=== PATIENT | male | born 1960 | race Caucasian/White ===

== ENCOUNTER 2018-11-09 11:28 | Inpatient (IN) ==
[2018-11-09 13:18] LABS: BASO# 0.01 X1000 (0.0-0.2); BASO% 0.1 % (0.0-0.8); EOS# 0.07 X1000 (0.0-0.7); EOS% 0.4 % (0.0-10.0); HEMATOCRIT 23.4 % (42.0-52.0); HEMOGLOBIN 7.8 g/dL (14.0-18.0); IMM GRAN# 0.05 X1000 (0.0-0.04); IMM GRAN% 0.3 % (0.0-0.5); LYMPH# 2.78 X1000 (1.2-3.4); LYMPH% 16.4 % (20.5-51.1); MCH 32.8 PG (27-31); MCHC 33.3 g/dL (33-37); MCV 98.3 FL (81-99); MONO# 1.28 X1000 (0.11-0.59); MONO% 7.5 % (1.7-9.3); MPV 10.4 FL (7.4-10.4); NEUT# 12.77 X1000 (1.4-6.5); NEUT% 75.3 % (42.2-75.2); PLT 370 X1000 (130-400); RBC 2.38 XMIL (4.7-6.1); RDW 13.9 % (11.5-14.5); WBC 16.96 X1000 (4.8-10.8)
--- NOTE | 2018-11-09 13:29 | EKG Report ---
Test Performed on : 11/09/2018 1:01:16 PM Test Reason : cp Blood Pressure : / mmHG Vent. Rate : 070 BPM Atrial Rate : 441 BPM P-R Int : 000 ms QRS Dur : 186 ms QT Int : 568 ms P-R-T Axes : 000 -73 097 degrees QTc Int : 613 ms Wide QRS rhythm. Left axis deviation Right bundle branch block Possible Lateral infarct , age undetermined Inferior infarct , age undetermined Abnormal ECG When compared with ECG of 12-JUL-2018 03:37, Wide QRS rhythm. has replaced Electronic ventricular pacemaker Unconfirmed Result
[2018-11-09 13:32] LABS: ALBUMIN 2.5 g/dL (3.5-5.0); CALCIUM 7.7 mg/dL (8.8-10.2); CREATININE 2.5 mg/dL (0.7-1.2); POTASSIUM 3.5 mmol/L (3.5-5.1); TOTAL BILIRUBIN 1.3 mg/dL (0.20-1.00); TOTAL PROTEIN 5.5 g/dL (6.3-8.3)
--- NOTE | 2018-11-09 13:35 | Diag Imaging Result Doc PS360 ---
EXAM: CHEST-PORTABLE HISTORY: cp TECHNIQUE: Chest single view COMPARISON: 07/12/2018 FINDINGS: The lungs are well expanded. The heart is not enlarged. There is a left-sided pacemaker. The vessels are not distended. There are no infiltrates. No effusion identified. Mild scoliosis. IMPRESSION: Negative exam. Electronically signed by Nando Sifuentes 11/09/2018 1:33 PM
[2018-11-09 13:51] LABS: INR 13.11; PROTIME 103.9 Seconds (11.0-16.0); PTT 136.8 Seconds (22.3-41.8)
--- NOTE | 2018-11-09 13:52 | Extremity Venous Study ---
EXAM: Venous U/S Right Arm HISTORY: Right arm swelling, and pain TECHNIQUE: Right upper extremity venous Doppler ultrasound COMPARISON: None. FINDINGS: There is good flow and compressibility in the veins of the right upper extremity. Normal compression. No thrombus. IMPRESSION: No evidence of deep venous thrombosis in the right upper extremity. Electronically signed by Nando Sifuentes 11/09/2018 1:49 PM
[2018-11-09 14:16] LABS: EOS 2 % (1-10); LYMPHS 14 % (21-51); MONO 2 % (1-9); NRBC 1 % (0-0); SEGS 82 % (42-75)
[2018-11-09 14:17] LABS: ANISOCYTOSIS 2+; HYPOCHROM 2+; POIKILOCYTOSIS 1+; POLYCHROM 1+
[2018-11-09 14:18] LABS: LARGE PLATELETS 1+; OVALOCYTES 1+; TOXIC GRANULATION 1+
[2018-11-09] MEDS ORDERED: VITAMIN K PO ONE (16:04)
[2018-11-09] MEDS ORDERED: NS 1,000 ML IV ONE (16:05)
--- NOTE | 2018-11-09 17:23 | Diag Imaging Result Doc PS360 ---
CT HEAD W/O CONTRAST - 11/09/2018 INDICATION: confusion COMPARISON: 07/12/2018 FINDINGS: There is an area of encephalomalacia at the left frontal lobe. No intracranial mass or hemorrhage. There is mild atrophy and periventricular white matter chronic microvascular disease similar to prior. There is an old lacunae in the lamar which is better seen on today's exam. The skull is intact. The sinuses, mastoids, and middle ears are clear. IMPRESSION: Chronic changes. No acute process. This exam was performed using automated exposure control, adjustment of mA or kV according to patient size, and/or use of iterative reconstruction technique Electronically signed by Tru Vides 11/09/2018 5:21 PM
--- NOTE | 2018-11-09 17:48 | PROVIDER DOCUMENTATION ---
This chart was entered by Constance Shea Scribe, acting as scribe for Miki Man CRNP. HPI-Musculoskeletal Pain/Inj - GENERAL Chief Complaint: Edema Stated Complaint: EDEMA TO RIGHT ARM Time Seen by Provider: 11/09/18 12:34 Source: patient, EMS - HX OF PRESENT ILLNESS-MUSKULOSKELTAL Nature of Presenting Problem: 58 yom presents to ed with cc of right arm swelling and turning blue x 2 days ago. Denies any injuries. Reports left upper arm has knot in it. Denies hx of blood clots. Reports is on warfarin. Hx of [place] and pacemaker. Denies cp and sob. Review of Systems - Adult - REVIEW OF SYSTEMS - ADULT Constitutional: denies: chills, fever, fatique Eyes: reports: no symptoms reported Ears, Nose, Mouth & Throat: denies: ear pain, sinus problem, throat pain Cardiovascular: denies: chest pain, irregular heart rate, orthopnea, syncope Respiratory: reports: no symptoms reported Gastrointestinal: denies: abdominal pain, nausea, vomiting Genitourinary: reports: no symptoms reported Musculoskeletal: reports: see HPI. denies: joint pain, joint swelling, neck pain Integumentary: reports: no symptoms reported Neurological: reports: no symptoms reported Psychiatric: reports: no symptoms reported Endocrine: reports: no symptoms reported Hematologic/Lymphatic: reports: no symptoms reported Allergic/Immunologic: reports: no symptoms reported All Other Systems: Reviewed and Negative Past History - Adult - PAST MEDICAL HISTORY-ADULT Review of Records: reports: Nursing Assessment Review, Medications Reviewed Major Childhood Illnesses: reports: denies history Cardiovascular: reports: cardiac disease, A-Fib, HTN, pacemaker Respiratory: reports: denies history Gastrointestinal: reports: denies history Obstetrical/Gynecological: reports: denies history Genitourinary: reports: denies history Musculoskeletal: reports: 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) Neurological: reports: denies history Psychiatric: reports: depression Endocrine/Immune: reports: Diabetes Other Conditions: reports: denies history - PRIOR SURGERIES/PROCEDURES Surgical/Procedure History: reports: pacemaker (AICD), other (spine surgery) - IMMUNIZATION STATUS Childhood Immunizations: See Nurse Assessment Flu Vaccine: See Nurse Assessment - FAMILY HISTORY Family History: reviewed, not pertinent Physical Exam-Injury Related - Physical Exam-Injury Related Initial Vital Signs Reviewed: Yes General Appearance: appears well, alert, no apparent distress Immobilization?: negative: backboard, C-collar Eyes: PERRL/EOMI, pink conjunctivae Neck: non-tender, full range of motion, supple, normal inspection Respiratory: chest non-tender, lungs clear, normal breath sounds, no pleuratic chest pain, no respiratory distress, no accessory muscle use Cardiovascular: regular rate, rhythm Peripheral Pulses: radial (R): 2+, radial (L): 2+ Back Exam: normal inspection Extremity: non-tender, normal gait, no pedal edema, slow capillary refill, swelling (Right hand and arm swelling with discoloration from shoulder to hand) , other (2+pitting edema). negative: tenderness Psych/Mental Status: normal mood/affect, normal thought content, normal thought process, oriented x 3 - Glascow Coma Score Best Eye Response ([place]): (4) open spontaneously Best Verbal Response ([place]): (5) oriented Best Motor Response (Amandeep): (6) obeys commands Progress - PLAN OF CARE/RESULTS Progress/Plan/Lab Results: Vital Signs - 8 hr 11/09/18 11:28 11/09/18 13:10 Temperature 97.8 F Pulse Rate 69 72 Respiratory Rate 20 16 Blood Pressure 99/65 104/65 O2 Sat by Pulse Oximetry 93 L 100 Laboratory Results - last 24 hr 11/09/18 11/09/18 11/09/18 13:00 13:00 13:00 WBC 16.96 H RBC 2.38 L Hgb 7.8 L Hct 23.4 L MCV 98.3 MCH 32.8 H MCHC 33.3 RDW Std Deviation 13.9 Plt Count 370 MPV 10.4 Immature Gran % (Auto) 0.3 Neut % (Auto) 75.3 H Lymph % (Auto) 16.4 L [place] % (Auto) 7.5 Eos % (Auto) 0.4 Baso % (Auto) 0.1 Immature Gran # (Auto) 0.05 H Neut # (Auto) 12.77 H Lymph # (Auto) 2.78 [place] # (Auto) 1.28 H Eos # (Auto) 0.07 Baso # (Auto) 0.01 Segmented Neutrophils 82 H Lymphocytes 14 L Monocytes 2 Eosinophils 2 Nucleated RBCs 1 H Hypochromia 2+ Toxic Granulation 1+ Large Platelets 1+ Polychromasia 1+ Poikilocytosis 1+ Anisocytosis 2+ Macrocytosis 2+ Ovalocytes 1+ PT 103.9 H INR 13.11 H* PTT (Actin FS) 136.8 H Sodium 138 Potassium 3.5 Chloride 97 L Carbon Dioxide 26 Anion Gap 16 BUN 57 H Creatinine 2.5 H Estimated GFR/1.73 m2 27 BUN/Creatinine Ratio 23 Glucose 90 Calculated Osmolality 291 Calcium 7.7 L Total Bilirubin 1.30 H AST 70 H ALT 41 Alkaline Phosphatase 108 Total Protein 5.5 L Albumin 2.5 L Globulin 3.0 Albumin/Globulin Ratio 1.0 Orders Category Date Time Status CHEST-PORTABLE [RAD] Stat Exams 11/09/18 12:40 Completed CBC WITH DIFF [HEME] Stat Lab 11/09/18 13:00 Completed COMPREHENSIVE METABOLIC PANEL [CHEM] Stat Lab 11/09/18 13:00 Completed PROTIME WITH INR [COAG] Stat Lab 11/09/18 13:00 Completed PTT [COAG] Stat Lab 11/09/18 13:00 Completed Phytonadione [Vitamin K] Med 11/09/18 16:04 Discontinued 5 mg PO NOW ONE EKG [EKG] Stat Ther 11/09/18 12:40 Draft Venous U/S Right Arm Stat Ther 11/09/18 12:40 Completed 1530 Hospitalist paiged Result Diagrams: 11/09/18 13:00 11/09/18 13:00 - EKG 1 Time of EKG reading by physician:: 13:01 EKG Read and Signed by:: Violeta Quiroz EKG Interpretation (*Must complete 3 of following elements*): Abnormal (poss lateral infarct age undetermined, inferior infarct age undetermined.) Rate: 70 Rhythm: wide QRS [place]: left QRS: RBB - XRAY 1 XRAY: Bilateral XRAY Study: Chest Impression: Normal (IMPRESSION: Negative exam. Electronically signed by Nando Sifuentes 11/09/2018 1:33 PM) - CONSULTS/PCP/HOSPITALIST Notification #1 *Consult/PCP/Hospitalist*: Dr. Dyson Time Discussed: 16:07 (Give pt 5 Vit K PO and admit) Departure - Departure Date of Disposition Decision: 11/09/18 Time of Disposition Decision: 15:30 DIAGNOSIS: Elevated INR Disposition: ADMITTED INPATIENT 09 Certified Medical Emergency: Emergent Condition: Stable Referrals and Follow-Ups: None,PCP [Primary Care Provider] - - Critical Care Note This patient required my direct & personal management of CC.: Yes Total Time (mins): 30 Critical Care Statement: This patient required my direct personal management to treat or rule out processes, the absence of which, could potentiallly result in sudden, clinically significant life or limb threatening deterioration. Attestation - Physician/ RUDY Attestation Patient care was provided by Advanced Practice Provider:: Yes Advanced Practice Provider:: Miki Man Advanced Practice Provider documentation review:: The Mid-level provider documentation, treatment plan and medical decision making was reviewed by the physician who agrees with all treatment and medical decision making by the MLP. The physician spent face to face time with patient:: No Advanced Practice Provider documentation review:: Supervising physician onsite and consulted in the evaluation and care of this patient. The physician did not have a face to face encounter with the patient. This chart was documented by the indicated scribe, (Constance Shea Scribe) and accurately reflects the services I performed and decisions made by me, Miki Man CRNP, as attested by the provider's signature.
[2018-11-09 19:10] LABS: HEMATOCRIT 22.8 % (42.0-52.0); HEMOGLOBIN 7.7 g/dL (14.0-18.0); MCHC 33.8 g/dL (33-37); MCV 97.9 FL (81-99); MPV 9.9 FL (7.4-10.4); RBC 2.33 XMIL (4.7-6.1); RDW 13.8 % (11.5-14.5); WBC 17.66 X1000 (4.8-10.8)
[2018-11-09] MEDS: DUONEB (A & A) INH SCH ×2 (19:24→22:58)
[2018-11-09 19:28] LABS: PROTIME 112.4 Seconds (11.0-16.0)
[2018-11-09 19:29] LABS: INR 14.48
[2018-11-09] MEDS ORDERED: VITAMIN K SUBQ ONE (19:32)
[2018-11-09] MEDS: PROTONIX IV SCH (20:23)
--- NOTE | 2018-11-09 20:47 | Diag Imaging Result Doc PS360 ---
CT ABDOMEN/PELVIS W/O CONTRAST - 11/09/2018 INDICATION: DEMETRIA, elevated INR COMPARISON: None FINDINGS: The lung bases are clear and the heart size is normal. There is severe scoliosis and spinal fusion rods. There is extremely severe vascular disease of the abdominal aorta and all of its branches. There are pacemaker leads in the heart. There are vascular calcifications in the kidneys. No definite renal stones. There is a gallstone the gallbladder. No gallbladder inflammation. There is rectal stool impaction with an 8 cm rectal stool ball. Urinary bladder and prostate are normal. IMPRESSION: Numerous nonspecific findings. This exam was performed using automated exposure control, adjustment of mA or kV according to patient size, and/or use of iterative reconstruction technique Electronically signed by Tru Vides 11/09/2018 8:44 PM
[2018-11-09 21:03] LABS: URINE SOURCE VOIDED
[2018-11-09 21:13] LABS: BILIRUBIN URINE NEGATIVE (NEGATIVE); BLOOD URINE NEGATIVE (NEGATIVE); CLARITY CLEAR (CLEAR); COLOR YELLOW; GLUCOSE URINE NEGATIVE (NEGATIVE); KETONE URINE NEGATIVE (NEGATIVE); LEUKOCYTES URINE TRACE (NEGATIVE); NITRITE URINE NEGATIVE (NEGATIVE); PH URINE 6.5; PROTEIN URINE TRACE mg/dL (NEGATIVE); UROBILINOGEN URINE NORMAL
[2018-11-09 21:29] LABS: URINE BACTERIA NEGATIVE /HFP; URINE EPITHELIAL CELLS <10 /HPF (<10); URINE RBC <10 /HPF (<10); URINE WBC <10 /HPF (<10)
[2018-11-09] MEDS: HUMALOG (PARKWAY) SUBQ SCH (22:31)
--- NOTE | 2018-11-10 01:44 | HISTORY AND PHYSICAL ---
ADDENDUM: The patient has a known history of alcoholism. He had a recent subarachnoid hemorrhage that has resolved back in July. He is currently on Coumadin. He also notes that he has frequent episodes of falling. He presented to the hospital with marked swelling and bruising of his right upper extremity. He does have good sensation distally. His INR was noted to be 13.1. Hemoglobin and hematocrit is actually lower at 7.8 and 23 than his baseline, although no active bleeding is noted. We will admit patient to the hospital. IV Lasix. We will continue to follow. We will give him vitamin K. We will not start fresh frozen plasma yet, as he has no active signs of bleeding. We will type, cross, transfuse 1 unit, given that he has lower hemoglobin and hematocrit than his baseline, and his INR is markedly elevated. We will recheck his labs later this evening, and adjust as needed. cc: Milton Dyson MD
[2018-11-10 01:52] LABS: INR 8.05; PROTIME 70.8 Seconds (11.0-16.0)
[2018-11-10] MEDS ORDERED: VITAMIN K SUBQ ONE (01:56)
[2018-11-10] MEDS: DUONEB (A & A) INH SCH ×6 (03:29→23:15)
--- NOTE | 2018-11-10 03:55 | HISTORY AND PHYSICAL ---
CHIEF COMPLAINT: Right arm swelling, turning blue. HISTORY OF PRESENT ILLNESS: This is a 58-year-old gentleman with a history of atrial fibrillation, pacemaker, hypertension diabetes mellitus. He presents to the emergency room complaining of his right arm swelling and turning blue. The patient is on Coumadin. He is unable to tell me what dose he takes, how many pills he takes or when his last INR was drawn. He did tell Dr. Dyson it was greater than a year. He denies injury. He denied any injury at first evaluation, then when I went back in the room he did say that he "I fall a lot and I hurt it then." He was noted to have a hematoma to his right deltoid area, looks like old bruising to his right deltoid. It is now, the colors are yellow and green. He is noted to have bruising from just above his elbow down to his fingers. He does have pitting edema. Bilateral radial pulses and antecubital pulses are palpable. He does have good movement. Sensation unable tell capillary refill due to the discoloration of the skin. He was found to have an INR of 13.1. In review of the patient's past records, in July 2018 he had a tiny acute subarachnoid hemorrhage at the superior left cerebral hemisphere that was 5 mm or less. PAST MEDICAL HISTORY: 1. Atrial fibrillation status post pacemaker. 2. Hypertension. 3. 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 4. Diabetes. PAST SURGICAL HISTORY: Pacemaker placement, possible AICD and spine surgery. SOCIAL HISTORY: He denies any illicit drug use. He does smoke a pack a day and he does drink whiskey, with his last drink being prior to coming to the ER. REVIEW OF SYSTEMS: Discussed with patient, with pertinent positives stated in the HPI. He denied any syncope or dizziness, any chest pain, palpitations, any fever, chills, any night sweats, cough, nausea, vomiting, diarrhea, constipation, black or bloody vomitus or stools, any hematuria, dysuria, frequency or urgency. PHYSICAL EXAMINATION: GENERAL: This is a 58-year-old gentleman who is sitting up in the stretcher in the ER in no distress. VITAL SIGNS: Blood pressure is 104/65, with a heart rate of 72, respirations are 16, temperature is 97.6, with O2 sats 97-100% on room air. EYES: Pupils are equal, round, react to light. EOMs are intact. Sclerae are anicteric. HEENT: Head is normocephalic, atraumatic. Mucous membranes are moist. NECK: Supple, with trachea midline. CARDIOVASCULAR: Regular rate and rhythm. S1 and S2 appreciated. He has no lower extremity edema. He does have right arm and hand edema with bruising noted from elbow to fingertips. His right arm and hand are edematous with pitting edema with peripheral pulses palpable x 4 extremities. PULMONARY: Breath sounds are clear with no increased work of breathing noted. Chest rises and falls symmetrically with respiration. Chest wall is nontender to palpation. GASTROINTESTINAL: Abdomen is soft, nontender, nondistended, with bowel sounds in all 4 quadrants. NEUROLOGIC: He is alert. He is oriented. SKIN: Warm and dry. He does have bruises scattered throughout his extremities in different stages. LABORATORY: WBC is 16.9, with hemoglobin 7.8, hematocrit 23.4 and platelets of 370,000. INR is 13.11. Sodium 138, potassium 3.5, BUN 57, creatinine 2.5, with a glucose of 90. Extremity venous study right arm revealed no evidence of deep vein thrombosis in the right upper extremity. Chest x-ray revealed a negative exam. There is a left-sided pacemaker. Heart is not enlarged. Lungs are well expanded. Vessels are not distended. There are no infiltrates. ASSESSMENT AND PLAN: 1. Hyper elevated INR. 2. Anemia secondary to blood loss. 3. Leukocytosis. 4. Acute kidney injury. 5. Elevated total bilirubin. PLAN: We will obtain a CT of the head without contrast as the patient did have a bleed in 2018. We will obtain a CT of the abdomen and pelvis without contrast to see if any acute kidney injury. We will obtain a urinalysis. We will attempt to identify his home medications. We will repeat a CBC and INR and a CMP in the morning. We will give gentle hydration. He was given a dose of vitamin K in the emergency room as a one time dose. We will reassess when labs are obtained in the morning. The patient does have a history of alcohol use, stating that he drinks daily. His last drink was prior to coming into the ER. We will get a blood alcohol from the labs that were drawn in the ER. Further treatments pending hospital course. Dictated by SHREYA Black for Milton Dyson MD This chart was documented by, SHREYA Black and accurately reflects the services performed, treatment plan and medical decisions as attested by the providers signature Milton Dyson MD. cc: SHREYA Black MD [facility]
[2018-11-10] MEDS: PROTONIX IV SCH ×2 (06:03→18:36)
[2018-11-10 06:06] LABS: HEMATOCRIT 28.4 % (42.0-52.0); HEMOGLOBIN 9.6 g/dL (14.0-18.0); MCH 32.3 PG (27-31); MCHC 33.8 g/dL (33-37); MCV 95.6 FL (81-99); MPV 10.3 FL (7.4-10.4); RBC 2.97 XMIL (4.7-6.1); WBC 16.87 X1000 (4.8-10.8)
[2018-11-10 06:28] LABS: PROTIME 65.6 Seconds (11.0-16.0)
[2018-11-10 06:29] LABS: INR 7.31
[2018-11-10 06:47] LABS: CALCIUM 7.4 mg/dL (8.8-10.2); CREATININE 1.9 mg/dL (0.7-1.2); POTASSIUM 3.1 mmol/L (3.5-5.1)
[2018-11-10] MEDS: HUMALOG (PARKWAY) SUBQ SCH ×4 (07:45→23:23)
[2018-11-10] MEDS: NS 1,000 ML IV SCH (11:29)
[2018-11-10] MEDS ORDERED: KLOR-CON PO ONE (18:15)
[2018-11-10] MEDS ORDERED: NORCO-10 PO PRN (20:11)
[2018-11-10] MEDS: NORCO-10 PO PRN (21:01)
--- NOTE | 2018-11-10 22:56 | PROGRESS NOTE ---
DATE: 11/10/2018 SUBJECTIVE: The patient notes that his right arm may be feeling a little bit better. Certainly, not any worse. Denies any fevers or chills. Denies any bleeding or bruising elsewhere. States the bruising on his right upper extremity is better. Denies any current alcohol use. PHYSICAL EXAMINATION: Vital Signs: Temperature 98.4, pulse 71, respiratory rate 20, blood pressure 133/67. General: Patient is awake, alert, currently in no distress. Very pleasant to talk with. HEENT: Normocephalic. Neck: Supple. Cardiovascular: Regular rate. Chest: Clear, nonlabored. Abdomen: Soft, nondistended. Extremities: Moves all extremities. He does have marked bruising and edema of his right upper extremity. ASSESSMENT: 1. Atrial fibrillation, with pacemaker. 2. Iatrogenically-elevated INR. Currently, he has continued to improve. 3. Anemia of chronic disease. 4. Hemoglobin and hematocrit is better after a unit of blood. 5. Acute kidney injury. His most recent creatinine on file is 0.8 in July 2018. Currently, it is 2.5. PLAN: We will continue patient in the hospital, continue IV fluids, continue to treat symptomatically. Further orders as needed. We will continue to hold Coumadin. cc: Milton Dyson MD
[2018-11-11] MEDS: NS 1,000 ML IV SCH ×2 (01:45→18:39)
[2018-11-11] MEDS: DUONEB (A & A) INH SCH ×5 (03:43→18:46)
[2018-11-11] MEDS: NORCO-10 PO PRN ×3 (04:37→22:28)
[2018-11-11] MEDS: PROTONIX IV SCH ×2 (06:33→18:39)
[2018-11-11] MEDS: SODIUM CHLORIDE 0.9% INJ SCH (06:33)
[2018-11-11] MEDS: HUMALOG (PARKWAY) SUBQ SCH ×4 (06:33→22:29)
[2018-11-11 10:17] LABS: HEMATOCRIT 26.9 % (42.0-52.0); MCH 32.5 PG (27-31); MCHC 33.5 g/dL (33-37); MCV 97.1 FL (81-99); MPV 9.5 FL (7.4-10.4); RBC 2.77 XMIL (4.7-6.1); RDW 16.2 % (11.5-14.5); WBC 16.29 X1000 (4.8-10.8)
[2018-11-11 10:24] LABS: AGAP 8; ALBUMIN 2.7 g/dL (3.5-5.0); ALKALINE PHOSPHATASE 110 U/L (32-122); BUN 36 mg/dL (8-22); CALCIUM 7.9 mg/dL (8.8-10.2); CHLORIDE 106 mmol/L (98-107); COSMO 294; CREATININE 1.2 mg/dL (0.7-1.2); ESTIMATED GFR > 60; GLUCOSE 141 mg/dL (70-104); GOT 36 U/L (10-34); GPT 29 U/L (10-44); MAGNESIUM 1.2 mg/dL (1.5-2.7); POTASSIUM 3.8 mmol/L (3.5-5.1); SODIUM 142 mmol/L (136-145); TCO2 28 mmol/L (25-35); TOTAL PROTEIN 5.4 g/dL (6.3-8.3)
[2018-11-11 10:35] LABS: INR 1.53; PROTIME 19.1 Seconds (11.0-16.0)
[2018-11-11] MEDS ORDERED: MAGNESIUM SULFATE 2 GM/S.W.I. 2 GM/50 ML IVPB IV ONE (14:00)
[2018-11-11] MEDS ORDERED: COUMADIN PO SCH (21:00)
--- NOTE | 2018-11-12 00:46 | PROGRESS NOTE ---
DATE: 11/11/2018 SUBJECTIVE: Patient notes that he is feeling better. He is right hand and arm have less swelling. Denies any chest pain or palpitations. PHYSICAL EXAMINATION: Vital Signs: Temperature 98.5 degrees, pulse 70, respiratory 16, BP 165/68. General: Patient is awake, alert, currently in no distress. HEENT: Normocephalic. Neck: Supple. CARDIOVASCULAR: Regular rate. Chest: Clear. Abdomen: Soft. Extremities: Moves all extremities. ASSESSMENT: 1. Marked hypercoagulability. INR was 13, currently is improved at 1.6. We will restart Coumadin although we will not restart Lovenox as he still has marked bruising and swelling of his right upper extremity. 2. Atrial fibrillation per history. This is the reason that he is on Coumadin. Currently, he is in sinus rhythm. 3. Hypertension. 4. Rnqrrpw-Zlhfv-Curfe disease of hands and feet. 5. Diabetes. 6. Anemia, stable. 7. Leukocytosis, stable. PLAN: We will continue patient in the hospital. His acute renal failure has much improved. Creatinine is down to 1.2. Magnesium is low at 1.2. We will replace this. We will ask [employer] to begin looking for rehab. We will consider transitioning him to Xarelto as this will be easier to manage and we will follow. If Xarelto is affordable, we will use a lower dose of Xarelto at 10 mg for the next several weeks to allow his hand to heal and then consider increasing back to the 20 mg if needed. cc: Milton Dyson MD
[2018-11-12] MEDS: DUONEB (A & A) INH SCH ×7 (04:11→22:47)
[2018-11-12] MEDS: SODIUM CHLORIDE 0.9% INJ SCH (05:33)
[2018-11-12] MEDS: PROTONIX IV SCH ×2 (05:33→19:11)
[2018-11-12] MEDS: HUMALOG (PARKWAY) SUBQ SCH ×4 (06:22→21:39)
[2018-11-12] MEDS: NORCO-10 PO PRN (06:22)
[2018-11-12 07:12] LABS: AGAP 13; ALBUMIN 2.6 g/dL (3.5-5.0); ALKALINE PHOSPHATASE 110 U/L (32-122); BUN 26 mg/dL (8-22); CALCIUM 8.3 mg/dL (8.8-10.2); CHLORIDE 104 mmol/L (98-107); COSMO 283; CREATININE 0.9 mg/dL (0.7-1.2); ESTIMATED GFR > 60; GLUCOSE 112 mg/dL (70-104); GOT 31 U/L (10-34); GPT 22 U/L (10-44); MAGNESIUM 1.5 mg/dL (1.5-2.7); POTASSIUM 3.8 mmol/L (3.5-5.1); SODIUM 139 mmol/L (136-145); TCO2 22 mmol/L (25-35); TOTAL PROTEIN 5.5 g/dL (6.3-8.3)
[2018-11-12 09:05] LABS: HEMATOCRIT 26.4 % (42.0-52.0); MCH 33.7 PG (27-31); MCHC 34.1 g/dL (33-37); MCV 98.9 FL (81-99); RBC 2.67 XMIL (4.7-6.1); WBC 18.11 X1000 (4.8-10.8)
[2018-11-12 09:18] LABS: INR 1.17; PROTIME 15.5 Seconds (11.0-16.0)
[2018-11-12] MEDS: LOTENSIN PO SCH (09:50)
--- NOTE | 2018-11-13 00:45 | PROGRESS NOTE ---
DATE: 11/12/2018 SUBJECTIVE: Patient notes that he is feeling better. His right arm pain is better, but he is having pain, numbness and tingling in his bilateral lower extremities and this is chronic. PHYSICAL EXAMINATION: Vital Signs: Temperature 98.1 degrees, pulse 71, respiratory 20, BP 157/93. General: Patient is in no current respiratory distress. HEENT: Normocephalic. Neck: Supple. Cardiovascular: Regular rate. Chest: Clear. Abdomen: Soft. Extremities: Moves all extremities. Neurologic: No changes. Skin: Warm and dry. ASSESSMENT: 1. Swelling in his right upper extremity has improved. 2. Hypercoagulability. INR currently is down to 1.3. 3. Anemia secondary to chronic blood loss, has been stable after transfusion. 4. Leukocytosis. 5. Acute on chronic kidney injury. Creatinine is improved. 6. Atrial fibrillation. PLAN: At this point, we will restart patient on Xarelto. However, we will start back at a low dose of 10 mg due to his recent bleeding as well as his recent marked bruising of his right upper extremity. We will continue this for several more weeks. After the bruising/bleeding has been stable, he can transition back to 20 mg Xarelto if needed. Hopefully, patient can transition to rehab over the next day or 2. cc: Milton Dyson MD
[2018-11-13] MEDS: DUONEB (A & A) INH SCH ×6 (03:08→22:42)
[2018-11-13] MEDS: TYLENOL PO PRN (04:00)
[2018-11-13] MEDS: XARELTO PO SCH (05:12)
[2018-11-13] MEDS: PROTONIX IV SCH (06:18)
[2018-11-13] MEDS: HUMALOG (PARKWAY) SUBQ SCH ×4 (06:19→21:57)
[2018-11-13] MEDS ORDERED: LOTENSIN PO SCH (09:00)
[2018-11-13] MEDS: CELEXA PO SCH (09:48)
[2018-11-13] MEDS: GLUCOPHAGE XR PO SCH (09:48)
[2018-11-13] MEDS: LOTENSIN PO SCH (09:48)
[2018-11-13] MEDS: PROTONIX PO SCH (21:04)
[2018-11-14] MEDS: NORCO-10 PO PRN ×2 (00:18→20:42)
[2018-11-14] MEDS: DUONEB (A & A) INH SCH ×6 (02:57→22:59)
--- NOTE | 2018-11-14 03:32 | PROGRESS NOTE ---
DATE: 11/13/2018 SUBJECTIVE: Patient notes that his right arm is feeling much better. He is having less pain, less swelling, less bruising. Denies any bruising elsewhere. PHYSICAL EXAMINATION: Vital Signs: Temperature 97.7 degrees, pulse 74, respiratory 20, BP 164/85. General: Patient is awake, alert, currently in no distress. Very pleasant to talk with. HEENT: Normocephalic. Neck: Supple. Cardiovascular: Regular rate. Chest: Clear. Abdomen: Soft, nondistended. Extremities: Moves all extremities. Skin: Right upper extremity bruising is much improved. ASSESSMENT: 1. Hypercoagulable secondary to elevated INR, resolved. 2. Anemia secondary to blood loss, resolved. Hemoglobin and hematocrit have remained stable. 3. Leukocytosis. 4. Acute kidney failure, resolved. 5. Hypomagnesemia, resolved. PLAN: We will continue patient in the hospital until which time he can transition to rehab. We have changed him to Xarelto. We will continue low-dose Xarelto until the bruising has improved and then may consider transition to higher dose. cc: Milton Dyson MD
[2018-11-14] MEDS: XARELTO PO SCH (05:04)
[2018-11-14] MEDS: HUMALOG (PARKWAY) SUBQ SCH ×4 (06:01→21:50)
[2018-11-14] MEDS: PROTONIX PO SCH ×2 (06:08→20:40)
[2018-11-14] MEDS: LOTENSIN PO SCH (10:11)
[2018-11-14] MEDS: CELEXA PO SCH (10:11)
[2018-11-14] MEDS: GLUCOPHAGE XR PO SCH (10:11)
--- NOTE | 2018-11-15 00:41 | PROGRESS NOTE ---
DATE: 11/14/2018 SUBJECTIVE: Patient with no new complaints. States that he is feeling better. Right arm is feeling better. He is able to start moving it better. Denies any chest pain, palpitations. PHYSICAL EXAMINATION: Vital Signs: Temperature 97.4 degrees, pulse 71, respiratory 20, BP 181/81. General: Patient is currently in no distress. HEENT: Normocephalic. Neck: Supple. Cardiovascular: Regular rate. Chest: Clear and nonlabored. Abdomen: Soft. Extremities: Moves all extremities. Skin: Right upper extremity has much less edema, much less bruising, full range of motion. ASSESSMENT: 1. Hypercoagulable, improved. Currently is on Xarelto instead of Eliquis. 2. Anemia, stable. 3. Leukocytosis, stable. 4. Atrial fibrillation with rapid ventricular response, stable. 5. Diabetes. 6. Hypertension. PLAN: Continue patient in the hospital. Continue Xarelto. Hopefully can transition to rehab first of the week, currently waiting on insurance approval. Overall, physically he is better although still generally weak. cc: Milton Dyson MD
[2018-11-15] MEDS: DUONEB (A & A) INH SCH ×6 (02:43→23:09)
[2018-11-15] MEDS: XARELTO PO SCH (05:13)
[2018-11-15] MEDS: HUMALOG (PARKWAY) SUBQ SCH ×4 (06:48→20:44)
[2018-11-15] MEDS: PROTONIX PO SCH ×2 (06:48→20:44)
[2018-11-15] MEDS: CELEXA PO SCH (08:58)
[2018-11-15] MEDS: LOTENSIN PO SCH (08:58)
[2018-11-15] MEDS: GLUCOPHAGE XR PO SCH (08:58)
[2018-11-15] MEDS: NORVASC PO SCH (11:27)
--- NOTE | 2018-11-15 19:29 | PROGRESS NOTE ---
DATE: 11/15/2018 SUBJECTIVE: Patient himself has no new complaints. States he is feeling okay. PHYSICAL EXAMINATION: Vital Signs: Vital signs reviewed. Temp 97.7, pulse 70, respiratory 20, BP 182/94. General: Patient is awake. He is in no distress. HEENT: Normocephalic. Neck: Supple. Cardiovascular: Regular rate. Chest: Clear. Abdomen: Soft. Extremities: Moves all extremities. Skin: Warm, dry. No rashes. His right upper extremity has had marked improvement in bruising over the last few days. The patient is still generally weak. ASSESSMENT: 1. Generalized weakness with adult failure to thrive. Patient is still generally weak and too weak to transition home. 2. Atrial fibrillation. 3. Hypercoagulable state. 4. Anemia secondary to blood loss, stable. PLAN: We will continue 10 mg Xarelto which is a lower dose, but given his recent bleeding as well as his recent marked bruising in his right upper extremity due to an elevated INR we will continue the low dose for now and over the next few weeks he can transition back to the 20 mg if necessary. Hopefully, the patient can transition to rehab over the next few days. cc: Milton Dyson MD
[2018-11-16] MEDS: DUONEB (A & A) INH SCH ×6 (03:24→23:20)
[2018-11-16] MEDS: XARELTO PO SCH (05:03)
[2018-11-16] MEDS: HUMALOG (PARKWAY) SUBQ SCH ×4 (06:27→21:24)
[2018-11-16] MEDS: PROTONIX PO SCH ×2 (06:29→21:24)
[2018-11-16] MEDS: CELEXA PO SCH (09:54)
[2018-11-16] MEDS: GLUCOPHAGE XR PO SCH (09:54)
[2018-11-16] MEDS: NORVASC PO SCH (09:54)
[2018-11-16] MEDS: LOTENSIN PO SCH (09:54)
--- NOTE | 2018-11-16 12:23 | PROGRESS NOTE ---
DATE: 11/16/2018 SUBJECTIVE: The patient has no major complaints. OBJECTIVE: Vital signs: Blood pressure is 184/86, heart rate 71, respiratory rate 16, temperature 97.7 degrees, 98% on room air. Cardiovascular: Regular rate and rhythm. Pulmonary: Bilateral breath sounds, clear to auscultation. GI: Was soft, nontender, and nondistended. Bowel sounds are positive. He still has significant bruising, ecchymoses of his right hand. LABORATORY DATA: Sugar 209. I do not think we have any new data today. PROBLEM LIST: 1. Weakness, failure to thrive with initial coagulopathy, anemia. The patient came in from home. He seems to be doing okay, but failure to thrive, weakness. Will continue with PT. He is still very weak. Working on trying to do some strength training. 2. Coagulopathy, but he is on a non-vitamin K antagonist which was stopped because his INR is like 11, when he came in and then his Xarelto was decreased to 10 mg. He does have a history of atrial fibrillation. 3. Atrial fibrillation appears to be rate controlled and anticoagulated. I will go ahead and reinitiate his Coreg because he is a bit hypertensive. 4. Hypertension. We will continue his regular medications, and we have adjusted Coreg. Hopefully, we can see some improvement. 5. Anemia. Hemoglobin and hematocrit has been stable. I will make sure there is not a significant drop. DISPOSITION: Pending rehab when bed available. cc: Zuhair Ferrell MD
[2018-11-16] MEDS: TYLENOL PO PRN (13:03)
[2018-11-16] MEDS: COREG PO SCH ×2 (13:03→21:23)
[2018-11-16] MEDS: THERA M PLUS PO SCH (13:03)
--- NOTE | 2018-11-16 15:12 | DISCHARGE SUMMARY ---
DATE OF ADMISSION: 11/09/2018 DATE OF DISCHARGE: 11/16/2018 PRIMARY CARE PHYSICIAN: None. ADMISSION DIAGNOSES: 1. Hyper elevated international normalized ratio. 2. Anemia secondary to blood loss. 3. Leukocytosis. 4. Acute kidney injury. 5. Elevated total bilirubin. DISCHARGE DIAGNOSES: 1. Weakness, failure to thrive with initial coagulopathy and anemia. 2. Coagulopathy. 3. Atrial fibrillation, rate controlled with chronic anticoagulation. 4. Hypertension. 5. Anemia. SUMMARY OF FINDINGS: This is a 58-year-old male who presented to the emergency room with complaints of his right arm swelling and turning blue. He was noted to be on Coumadin, but was unable to tell us the dosage that he takes, but states he has been on it for greater than a year. Stated that "I fall a lot and hurt it then," was noted to have a hematoma to the right deltoid area with old bruising to the right deltoid. He had some pitting edema. He did have good movement. He was found to have an INR on admission of 13.1. He was admitted. We held his Coumadin. We did do a CT of the head without contrast because he had a bleed in July 2018. It showed an impression of chronic changes but no acute process. We did an abdomen and pelvic CT that showed nonspecific findings. His INR on 11/12/2018 was subtherapeutic at 1.17. He was started on Xarelto 10 mg p.o. daily. He has done well with that. Physical therapy has evaluated and has been treating the patient. His hemoglobin and hematocrit are stable at 9.0 and 26.4. He did receive 1 unit of packed red blood cells while he has been here in the hospital and it is now felt that he can safely be discharged to rehab today. DISCHARGE MEDICATIONS: Benazepril 20 mg p.o. daily, [place] 10 1 p.o. q.4 h. p.r.n. #25 with no refill, metformin 500 mg p.o. daily, Xarelto 10 mg p.o. daily, Lotensin 20 mg p.o. daily, Coreg 25 mg p.o. daily. DISCHARGE INSTRUCTIONS: Follow-up he will need to follow up with the primary care once he is discharged from rehab. TIME SPENT: 35 minutes. Dictated by SHREYA Rutledge for Zuhair Ferrell MD cc: SHREYA Rutledge MD
[2018-11-16 16:11] LABS: BASO# 0.04 X1000 (0.0-0.2); BASO% 0.2 % (0.0-0.8); EOS# 0.08 X1000 (0.0-0.7); EOS% 0.4 % (0.0-10.0); HEMATOCRIT 26.7 % (42.0-52.0); HEMOGLOBIN 8.8 g/dL (14.0-18.0); IMM GRAN# 0.07 X1000 (0.0-0.04); IMM GRAN% 0.3 % (0.0-0.5); LYMPH# 0.45 X1000 (1.2-3.4); LYMPH% 2.1 % (20.5-51.1); MCH 33.3 PG (27-31); MCV 101.1 FL (81-99); MONO# 0.48 X1000 (0.11-0.59); MONO% 2.3 % (1.7-9.3); NEUT# 20.14 X1000 (1.4-6.5); NEUT% 94.7 % (42.2-75.2); PLT 425 X1000 (130-400); RBC 2.64 XMIL (4.7-6.1); WBC 21.26 X1000 (4.8-10.8)
[2018-11-16 16:44] LABS: ANISOCYTOSIS 1+; BANDS 6 % (0-1); HYPOCHROM 1+; LYMPHS 1 % (21-51); MONO 5 % (1-9); NRBC 1 % (0-0); POIKILOCYTOSIS OCCASIONAL; SEGS 88 % (42-75)
[2018-11-16 16:51] LABS: AGAP 13; BUN 19 mg/dL (8-22); CHLORIDE 108 mmol/L (98-107); COSMO 286; ESTIMATED GFR > 60; GLUCOSE 111 mg/dL (70-104); POTASSIUM 3.6 mmol/L (3.5-5.1); SODIUM 142 mmol/L (136-145); TCO2 22 mmol/L (25-35)
--- NOTE | 2018-11-16 18:09 | Diag Imaging Result Doc PS360 ---
EXAM: CHEST-2 VIEWS INDICATION: leukocytosis TECHNIQUE: 2 views COMPARISON: 11/09/2018 FINDINGS: There is a mild focal opacity at the left lung base that may represent atelectasis versus a small infiltrate. The central vasculature is mildly prominent suggesting likely coronary venous congestion. No definite pleural fluid collection or pneumothorax is identified. The pacemaker is in stable position. Cardiac silhouette is unremarkable, otherwise. IMPRESSION: Minimal left basilar atelectasis versus mild infiltrate and possible mild pulmonary venous congestion as described. Electronically signed by Joseph Ch 11/16/2018 6:08 PM
[2018-11-16] MEDS: MAXIPIME 2 GM in NS 100 ML IV SCH (18:31)
[2018-11-17] MEDS: DUONEB (A & A) INH SCH ×6 (03:32→22:51)
[2018-11-17] MEDS: MAXIPIME 2 GM in NS 100 ML IV SCH ×2 (04:50→18:41)
[2018-11-17] MEDS: XARELTO PO SCH (05:16)
[2018-11-17] MEDS: HUMALOG (PARKWAY) SUBQ SCH ×4 (06:33→20:42)
[2018-11-17] MEDS: PROTONIX PO SCH ×2 (06:33→20:43)
[2018-11-17 06:34] LABS: BASO# 0.06 X1000 (0.0-0.2); BASO% 0.2 % (0.0-0.8); EOS# 0.04 X1000 (0.0-0.7); EOS% 0.1 % (0.0-10.0); HEMATOCRIT 26.9 % (42.0-52.0); HEMOGLOBIN 8.8 g/dL (14.0-18.0); IMM GRAN# 0.14 X1000 (0.0-0.04); IMM GRAN% 0.4 % (0.0-0.5); LYMPH# 1.13 X1000 (1.2-3.4); LYMPH% 3.2 % (20.5-51.1); MCH 33.3 PG (27-31); MCHC 32.7 g/dL (33-37); MCV 101.9 FL (81-99); MONO# 0.95 X1000 (0.11-0.59); MONO% 2.7 % (1.7-9.3); MPV 9.9 FL (7.4-10.4); NEUT# 33.39 X1000 (1.4-6.5); NEUT% 93.4 % (42.2-75.2); PLT 398 X1000 (130-400); RBC 2.64 XMIL (4.7-6.1); RDW 19.5 % (11.5-14.5); WBC 35.71 X1000 (4.8-10.8)
[2018-11-17 06:39] LABS: AGAP 13; BUN 22 mg/dL (8-22); CALCIUM 7.9 mg/dL (8.8-10.2); CHLORIDE 104 mmol/L (98-107); COSMO 282; CREATININE 1.1 mg/dL (0.7-1.2); ESTIMATED GFR > 60; GLUCOSE 110 mg/dL (70-104); POTASSIUM 3.7 mmol/L (3.5-5.1); SODIUM 139 mmol/L (136-145); TCO2 22 mmol/L (25-35)
[2018-11-17 07:12] LABS: BANDS 6 % (0-1); LYMPHS 4 % (21-51); SEGS 90 % (42-75)
[2018-11-17 07:14] LABS: ANISOCYTOSIS 2+; HYPOCHROM 1+; MICROCYTOSIS OCCASIONAL; POIKILOCYTOSIS 2+; POLYCHROM OCCASIONAL; TARGET CELLS OCCASIONAL
[2018-11-17 07:15] LABS: BURR CELLS OCCASIONAL; LARGE PLATELETS OCCASIONAL; OVALOCYTES OCCASIONAL
[2018-11-17] MEDS ORDERED: VANCOMYCIN IV PER PHARMACY MISC SCH (09:00)
[2018-11-17] MEDS: NORVASC PO SCH (09:55)
[2018-11-17] MEDS: LOTENSIN PO SCH (09:55)
[2018-11-17] MEDS: GLUCOPHAGE XR PO SCH (09:55)
[2018-11-17] MEDS: COREG PO SCH ×2 (09:55→20:42)
[2018-11-17] MEDS: THERA M PLUS PO SCH (09:55)
[2018-11-17] MEDS: CELEXA PO SCH (09:55)
[2018-11-17] MEDS ORDERED: VANCOMYCIN 2,000 MG in NS 500 ML IV ONE (10:00)
[2018-11-17 10:12] LABS: BILIRUBIN URINE 1+ (NEGATIVE); BLOOD URINE NEGATIVE (NEGATIVE); CLARITY CLEAR (CLEAR); COLOR AMBER; GLUCOSE URINE NEGATIVE (NEGATIVE); KETONE URINE TRACE mg/dL (NEGATIVE); LEUKOCYTES URINE TRACE (NEGATIVE); NITRITE URINE NEGATIVE (NEGATIVE); PH URINE 6.5; PROTEIN URINE 1+(30 mg/dL) mg/dL (NEGATIVE); UROBILINOGEN URINE 4 mg/dL
[2018-11-17 10:18] LABS: URINE EPITHELIAL CELLS <10 /HPF (<10); URINE SOURCE CLEAN CATCH; URINE WBC <10 /HPF (<10)
--- NOTE | 2018-11-17 18:57 | Diag Imaging Result Doc PS360 ---
EXAM: FOOT 2 VIEWS LEFT 11/17/2018 HISTORY: foot ulcer TECHNIQUE: Left foot, lateral only COMMENT: There is generalized soft tissue swelling particularly over the dorsum of the foot. There is patchy osteoporosis. IMPRESSION: Soft tissue swelling and disuse osteoporosis. Electronically signed by Jem Hogue 11/17/2018 6:54 PM
--- NOTE | 2018-11-17 20:15 | PROGRESS NOTE ---
DATE: 11/17/2018 SUBJECTIVE: Patient has no major complaints. Nurse notes he has been self- stimulating in his room at some point where we could not get films on him x-ray films. OBJECTIVE: Blood pressure is 157/82, heart rate of 81, respiratory 16, temperature 99.6 degrees, 99% on room air.Cardiovascular: Regular rate and rhythm. Pulmonary: Bilateral breath sounds. Clear to auscultation. GI: Was soft, nontender, nondistended. Bowel sounds are positive. PROBLEMS: 1. Fever which I do not have a good explanation for. We does have a rising white count I am not sure if he does not have infection in his leg. He is on vancomycin and cefepime. We will continue to monitor. 2. Coagulopathy that has resolved. He is on low-dose Xarelto. 3. Atrial fibrillation appears to be rate controlled, we are holding strong anticoagulation because he had severe coagulopathy when he came in. 4. Hypertension. That seems to be overall pretty well controlled. 5. Anemia appears to be stable. 6. Rising leukocytosis. We will evaluate for skin infection or bone infection, he has had abdominal pelvic CT. We may have to do a chest CT so we will continue to monitor closely. cc: Zuhair Ferrell MD [facility]ENTERCristina
[2018-11-17] MEDS: TYLENOL PO PRN (20:43)
[2018-11-17 21:05] LABS: OCCULT BLOOD 1 POSITIVE (NEGATIVE)
[2018-11-17] MEDS: SANTYL OINT TOP SCH (22:08)
--- NOTE | 2018-11-18 02:38 | EKG Report ---
Test Performed on : 11/18/2018 00:43:41 AM Test Reason : 6 beat of v tach Blood Pressure : / mmHG Vent. Rate : 089 BPM Atrial Rate : 089 BPM P-R Int : 138 ms QRS Dur : 188 ms QT Int : 570 ms P-R-T Axes : 063 -74 097 degrees QTc Int : 693 ms Sinus rhythm. with frequent ventricular-paced complexes and premature supraventricular complexes. Left axis deviation Right bundle branch block Inferior infarct , age undetermined Anterior infarct , age undetermined Abnormal ECG When compared with ECG of 09-NOV-2018 13:01, (Unconfirmed) Electronic ventricular pacemaker has replaced Wide QRS rhythm. Confirmed by Gregory Powell MD ([id number]) on 11/20/2018 7:14:57 AM
[2018-11-18] MEDS: VANCOMYCIN 1,500 MG in NS 250 ML IV SCH (03:05)
[2018-11-18] MEDS: DUONEB (A & A) INH SCH ×6 (03:11→23:45)
[2018-11-18] MEDS: NORCO-10 PO PRN ×3 (04:32→18:41)
[2018-11-18] MEDS: MAXIPIME 2 GM in NS 100 ML IV SCH ×2 (05:40→18:36)
[2018-11-18] MEDS: XARELTO PO SCH (05:40)
[2018-11-18] MEDS: HUMALOG (PARKWAY) SUBQ SCH ×4 (06:03→21:39)
[2018-11-18] MEDS: PROTONIX PO SCH ×2 (06:09→21:40)
[2018-11-18 06:14] LABS: BASO# 0.03 X1000 (0.0-0.2); BASO% 0.2 % (0.0-0.8); EOS# 0.11 X1000 (0.0-0.7); EOS% 0.6 % (0.0-10.0); HEMATOCRIT 26.7 % (42.0-52.0); HEMOGLOBIN 8.6 g/dL (14.0-18.0); IMM GRAN# 0.06 X1000 (0.0-0.04); IMM GRAN% 0.3 % (0.0-0.5); LYMPH# 1.45 X1000 (1.2-3.4); LYMPH% 7.7 % (20.5-51.1); MCH 33.3 PG (27-31); MCHC 32.2 g/dL (33-37); MCV 103.5 FL (81-99); MONO# 0.96 X1000 (0.11-0.59); MONO% 5.1 % (1.7-9.3); MPV 10.1 FL (7.4-10.4); NEUT# 16.21 X1000 (1.4-6.5); NEUT% 86.1 % (42.2-75.2); PLT 380 X1000 (130-400); RBC 2.58 XMIL (4.7-6.1); RDW 19.3 % (11.5-14.5); WBC 18.82 X1000 (4.8-10.8)
[2018-11-18 06:29] LABS: AGAP 14; BUN 26 mg/dL (8-22); CALCIUM 7.8 mg/dL (8.8-10.2); CHLORIDE 103 mmol/L (98-107); COSMO 277; CREATININE 1.2 mg/dL (0.7-1.2); ESTIMATED GFR > 60; GLUCOSE 96 mg/dL (70-104); POTASSIUM 3.5 mmol/L (3.5-5.1); SODIUM 136 mmol/L (136-145); TCO2 20 mmol/L (25-35)
[2018-11-18 07:09] LABS: LYMPHS 5 % (21-51); MONO 2 % (1-9); SEGS 93 % (42-75)
[2018-11-18] MEDS: THERA M PLUS PO SCH (10:38)
[2018-11-18] MEDS: LOTENSIN PO SCH (10:38)
[2018-11-18] MEDS: NORVASC PO SCH (10:39)
[2018-11-18] MEDS: GLUCOPHAGE XR PO SCH (10:39)
[2018-11-18] MEDS: CELEXA PO SCH (10:39)
[2018-11-18] MEDS: COREG PO SCH ×2 (10:39→21:40)
[2018-11-18] MEDS: SANTYL OINT TOP SCH (11:50)
--- NOTE | 2018-11-18 13:46 | Diag Imaging Result Doc PS360 ---
CT THORAX W/O CONTRAST - 11/18/2018 INDICATION: pneumonia, persistent leukocytosis COMPARISON: 11/16/2018, 07/12/2018 FINDINGS: There are moderate bilateral pleural effusions. These measure up to about 4 cm in depth. Stable left-sided dual-chamber pacemaker in good position. There is cardiomegaly. There is mild bibasilar atelectasis. There is some faint interstitial opacity in the lung bases compatible with pulmonary edema. The airways are grossly clear. There is significant body wall edema. Stable severe scoliosis and spinal fusion rods. IMPRESSION: Cardiomegaly and faint pulmonary edema. Moderate bilateral pleural effusions. This exam was performed using automated exposure control, adjustment of mA or kV according to patient size, and/or use of iterative reconstruction technique Electronically signed by Tru Vides 11/18/2018 1:44 PM
--- NOTE | 2018-11-18 14:47 | Diag Imaging Result Doc PS360 ---
EXAM: CT ANGIOGRAM AORTA W/RUNOFF INDICATION: severe pvd TECHNIQUE: This exam was performed using automated exposure control, adjustment of mA or kV according to patient size, and/or use of iterative reconstruction technique. Thin section axial images and 3-D MIPS were obtained. COMPARISON: CT of the abdomen and pelvis without contrast dated 11/09/2018 FINDINGS: There is extensive aortoiliac atherosclerotic disease with calcification and soft plaques. No aortic aneurysm is identified. There is mild aneurysmal dilation of the right common iliac artery measuring up to 1.6 cm in diameter. There is multifocal moderate narrowing involving the distal aorta and common iliac arteries. There is severe atherosclerotic calcification involving the internal iliac arteries. The left external iliac artery is occluded just distal to its origin. There is intermittent severe stenosis involving the right external iliac artery but it remains patent. There is atherosclerotic disease involving both renal arteries with moderate stenosis on the right and focal severe stenosis on the left just distal to their origins. There is focal severe stenosis involving the celiac trunk distally. Atherosclerotic disease causing mild to moderate stenosis at the proximal SMA. It remains patent. There is focal severe stenosis at the TENZIN at its origin but it remains widely patent thereafter. Since the prior CT, there has been development of bilateral moderate pleural effusions with bibasilar atelectasis. There is a rectal fecal impaction that is very similar to the prior CT. There is worsening body wall anasarca. Otherwise, the abdomen and pelvis are essentially stable as compared to the fairly recent previous study. Right: There is focal severe stenosis involving the mid common femoral artery. The superficial femoral artery becomes completely occluded distally. Flow is reconstituted at the popliteal artery via collateralization. There is intermittent moderate stenosis throughout the popliteal artery. The anterior tibial artery is patent throughout its course and provides runoff to the foot. The posterior tibial artery is occluded at its origin but it becomes reconstituted at the mid calf and appears to provide runoff to the foot. The peroneal artery becomes occluded distally. Left: After the excluded external iliac artery, flow is reconstituted at the common femoral artery. There is intermittent moderate stenosis throughout the common femoral artery. There is intermittent stenosis throughout the superficial femoral artery which is fairly severe distally. However, it remains patent. There is intermittent moderate popliteal artery stenosis. The anterior tibial artery remains patent providing runoff to the foot. There is severe stenosis of the tibioperoneal trunk. The posterior tibial artery is completely occluded proximally but is reconstituted at the mid calf. However, it becomes occluded again at the ankle. The peroneal artery appears to be occluded distally. IMPRESSION: 1.Extremely severe aortoiliac atherosclerotic disease and lower extremity atherosclerotic disease as detailed above. 2.Rectal fecal impaction that is similar to the previous CT. 3.Development of moderate-sized pleural effusions. Electronically signed by Joseph Ch 11/18/2018 2:45 PM
[2018-11-18] MEDS: MIRALAX PO SCH (18:36)
[2018-11-18] MEDS: LASIX IV SCH (19:43)
--- NOTE | 2018-11-18 21:34 | PROGRESS NOTE ---
DATE: 11/18/2018 SUBJECTIVE: He has no focal complaints. OBJECTIVE: Blood pressure 169/88, heart rate 69, respiratory rate 20, temperature 98.3 degrees, and 100% on room air.Cardiovascular: Regular rate and rhythm. Pulmonary: Bilateral breath sounds. Clear to auscultation. GI: Soft, nontender, and nondistended. Bowel sounds are positive. LABORATORY: White count 18, hemoglobin and hematocrit 8 and 26, and platelets 380,000. Basic was normal. Hemoccult is negative. IMPRESSION AND PLAN: 1. Gram-positive bacteremia likely possibly related to cellulitis of the foot or diabetic foot ulcer. We will continue vancomycin. He is clinically improved since we added that yesterday. 2. Coagulopathy that is resolved. He is on low-dose Xarelto, but he has developed heme-positive stool, not sure what we checked that, but we are going to hold his Xarelto for the time being. His hemoglobin and hematocrit has been stable though. 3. Atrial fibrillation. We will rate control and follow. 4. Anemia appears to be stable. 5. Leukocytosis with diabetic foot ulcer. We will continue vancomycin. Surgery has been consulted. He has got severe peripheral vascular disease. We will continue wound culture and follow closely. 6. Diabetes. Follow blood sugars closely. We will have to hold his metformin because he had a CT with contrast today. 7. Moderate pleural effusion. We will initiate some diuretics and follow. DISPOSITION: 1. Pending clinical status, we will continue to follow. If GI bleed is a progression, he may need to be transferred. He also may need to be transferred for the option of surgical intervention, but I am waiting on Dr. Boateng's evaluation. 2. It looks like there may be concern over fecal impaction too on his CT so we will give him some medications for that as well. Continue to follow. cc: Zuhair Ferrell MD
[2018-11-18] MEDS: LACTULOSE PO SCH (21:40)
[2018-11-18] MEDS: DULCOLAX PR SCH (21:45)
[2018-11-19] MEDS: VANCOMYCIN 1,500 MG in NS 250 ML IV SCH ×2
[2018-11-19] MEDS: DUONEB (A & A) INH SCH ×6 (03:08→22:59)
[2018-11-19] MEDS: MAXIPIME 2 GM in NS 100 ML IV SCH (05:30)
[2018-11-19] MEDS: LASIX IV SCH ×2 (06:29→19:07)
[2018-11-19] MEDS: PROTONIX PO SCH ×2 (06:29→20:28)
[2018-11-19 06:34] LABS: BASO# 0.04 X1000 (0.0-0.2); BASO% 0.2 % (0.0-0.8); EOS# 0.18 X1000 (0.0-0.7); HEMATOCRIT 29.2 % (42.0-52.0); HEMOGLOBIN 9.6 g/dL (14.0-18.0); IMM GRAN# 0.05 X1000 (0.0-0.04); IMM GRAN% 0.3 % (0.0-0.5); LYMPH# 2.01 X1000 (1.2-3.4); LYMPH% 11.2 % (20.5-51.1); MCH 33.1 PG (27-31); MCHC 32.9 g/dL (33-37); MCV 100.7 FL (81-99); MONO# 1.27 X1000 (0.11-0.59); MONO% 7.1 % (1.7-9.3); MPV 10.3 FL (7.4-10.4); NEUT# 14.44 X1000 (1.4-6.5); NEUT% 80.2 % (42.2-75.2); PLT 430 X1000 (130-400); RDW 18.7 % (11.5-14.5); WBC 17.99 X1000 (4.8-10.8)
[2018-11-19 06:38] LABS: AGAP 14; BUN 24 mg/dL (8-22); CALCIUM 7.9 mg/dL (8.8-10.2); CHLORIDE 102 mmol/L (98-107); COSMO 284; CREATININE 1.1 mg/dL (0.7-1.2); ESTIMATED GFR > 60; GLUCOSE 139 mg/dL (70-104); POTASSIUM 3.5 mmol/L (3.5-5.1); SODIUM 139 mmol/L (136-145); TCO2 23 mmol/L (25-35)
[2018-11-19] MEDS: HUMALOG (PARKWAY) SUBQ SCH ×4 (06:49→20:40)
[2018-11-19 08:02] LABS: ANISOCYTOSIS 1+; LYMPHS 15 % (21-51); MONO 3 % (1-9); SEGS 82 % (42-75)
[2018-11-19] MEDS: GLUCOPHAGE XR PO SCH (08:30)
[2018-11-19] MEDS: THERA M PLUS PO SCH (08:30)
[2018-11-19] MEDS: LACTULOSE PO SCH ×2 (08:30→20:28)
[2018-11-19] MEDS: SANTYL OINT TOP SCH (08:30)
[2018-11-19] MEDS: NORVASC PO SCH (08:30)
[2018-11-19] MEDS: LOTENSIN PO SCH (08:30)
--- NOTE | 2018-11-19 08:40 | CONSULTATION ---
DATE OF CONSULTATION: 11/19/2018 HISTORY OF PRESENT ILLNESS: Mr. Leonard Duckworth is a 58-year-old white male, who was hospitalized at [facility] on 11/09/2018 with anemia, abnormal coagulation studies, and bruising involving his right shoulder. He is a severe alcoholic. Has history of atrial fibrillation and cardiac pacemaker on anticoagulation. It appears that he fell involving his right shoulder and had significant bruising and on his evaluation in the emergency department, it was noted that he was anemic and his INR was 13. He has been admitted for further evaluation. He has a sore involving his left foot and part of his evaluation, has been a CT angiogram which shows severe peripheral vascular disease. He continues to smoke at least a pack of cigarettes a day and is a diabetic. He lives alone in [facility]. Dr. Nilesh Flower is his primary care physician. He is able to walk. PAST MEDICAL HISTORY: He has had back surgery and is totally disabled. He has a dual chamber pacemaker, chronic atrial fibrillation on anticoagulation, severe peripheral vascular disease, diabetes on p.o. Glucophage, alcohol abuse, hypertension. MEDICATIONS: Norvasc, Lotensin, Coreg, Celexa, Lasix, Glucophage, Protonix, and antibiotics. ALLERGIES: No known drug allergies. SOCIAL HISTORY: He lives alone in [facility]. He is disabled. He is an alcoholic. His does have family nearby. He is a smoker. Dr. Nilesh Flower is his primary care physician. REVIEW OF SYSTEMS: Does appear that he has pain in his legs, but he says that he can walk. FAMILY HISTORY: Noncontributory. PHYSICAL EXAMINATION: On exam, Mr. Duckworth is a middle-aged white male, who is difficult to get a history from. He is awake. He is in no acute distress. He does have some signs of alcoholism with shaking of his hands. He does have some bruising involving his right shoulder. He has some edema involving his subcutaneous tissue of his body. He is barrel-chested, and has evidence of COPD. His abdomen is without tenderness. He has no femoral pulse on the left that is palpable. He does have a femoral pulse on the right. He has evidence of peripheral vascular disease involving both lower extremities. He has a sore involving the left foot at the great toe that appears to be clean. Neurologically, he has a tremor, but no focal deficit. IMPRESSION: 1. Severe peripheral vascular disease in a patient, who has had previous back surgery, has a history of alcohol abuse. 2. Atrial fibrillation on anticoagulation. 3. Smoker. 4. High blood pressure. 5. Diabetes. PLAN: I do feel that if he can be compliant with his medications, that he needs to be on aspirin or Plavix because of his severe peripheral vascular disease. Elective attempt at any revascularization would be reasonable. I do worry about his liver function and whether he can be compliant with appointments. I will review his films with Dr. Nilesh Salas. cc: Jessie Boateng MD
[2018-11-19] MEDS: CELEXA PO SCH (10:38)
[2018-11-19] MEDS: DULCOLAX PR SCH ×2 (10:38→20:28)
[2018-11-19] MEDS: COREG PO SCH ×2 (10:39→20:32)
[2018-11-19] MEDS: MIRALAX PO SCH ×2 (10:42→10:46)
--- NOTE | 2018-11-19 12:09 | VASCULAR LAB ---
PROCEDURE NAME: Arterial Bilateral Legs - 11/18/2018 ORDERING PHYSICIAN: Dr. Ferrell. INDICATIONS: Rest pain and the nonhealing ulcer, left great toe. The patient is a diabetic and smoker. FINDING: Systolic brachial blood pressure on the right is 174 mmHg, on the left 179 mmHg. Right high thigh 167 mmHg. Left high thigh 250 mmHg. Right low thigh 114 mmHg. Left low thigh 151 mmHg. Right calf 104 mmHg. Left calf 117 mmHg. Right ankle 98 mmHg. Left ankle 36 mmHg. There are diminished to no pulse waveforms involving both feet and both great toes. At rest, the right ankle-brachial index is 0.55. Left ankle-brachial index is 0.20. The pulse waveforms are diminished the entire length of both lower extremities, left worse than right. INTERPRETATION: Severe aortoiliac and femoral popliteal disease in both lower extremities. The disease is severe enough to cause rest pain and certainly would affect wound healing in the feet bilaterally. There appears to be occlusion on the left within the aortoiliac area with diminished pulse waveforms in the left groin. cc: MD Zuhair Caldera MD
--- NOTE | 2018-11-19 14:05 | PROGRESS NOTE ---
DATE: 11/19/2018 SUBJECTIVE: This morning, Mr. Duckworth refers to be doing fairly okay. No more fever. No chills. He seems slightly confused, however. OBJECTIVELY: Vitals: Blood pressure is 153/84, pulse is 70, respiration is 20 , temperature is 97.9 degrees. General: Mr. Duckworth is a 58-year-old male. He is in bed. Does not seem to be in any cardiopulmonary distress. Mucosa is pink and moist. Anicteric. Acyanotic. Neck: Supple. Chest: Air entry is bilaterally reduced. There is a few crackles posteriorly but no wheezing. Cardiovascular: Regular rate and rhythm. No murmurs, no rubs, no gallops. Abdomen: Soft, minimally tender everywhere, but there is no guarding or rebound. Extremities: No pedal edema. Distal pulses are almost imperceptible in both lower extremities. SEPARATOR TENDER: Patient is awake, alert, but only oriented to person, disoriented to place and to time. ASSESSMENT: 1. Sepsis secondary to methicillin-resistant Staphylococcus aureus bacteremia. The source of this is not known yet. The patient did have some infiltrates on initial chest x-ray and was being treated for pneumonia. Blood cultures is now methicillin-resistant Staphylococcus aureus, so we will discontinue the cefepime and continue with the vancomycin. The patient does have a cardiac device (pacemaker and also has spinal rods), which will make the treatment of this methicillin-resistant Staphylococcus aureus bacteremia prolonged. Will, therefore, call ID and notify them and get some more recommendations from them. Will get Echo as well. 2. Severe peripheral vascular disease noted. 3. History of atrial fibrillation, currently rate controlled. 4. Supratherapeutic INR on Coumadin therapy. This has been reversed. 5. Extremely severe aortoiliac atherosclerosis. The patient is supposed to be on aspirin and Plavix, however, Plavix has been has been on hold. We will add statin to his medications. 6. Rectal fecal impaction. We will continue with bowel regimen. 7. Mild altered mental status. Unsure the patient's baseline. It appears that he probably has a baseline dementia from alcohol abuse, that has been worsen by the ongoing sepsis. So in general, I think Mr. Duckworth is critically sick. He has methicillin- resistant Staphylococcus aureus bacteremia with hardware both in the heart and in the spine, which will make him higher risk and will need a longer period for treatment. We will continue with the current vancomycin, and we will consult ID. I have ordered echocardiogram to rule out endocarditis. The patient also has remarkable fluid overload. Unsure if he has any acute congestive heart failure because of endocarditis from the methicillin-resistant Staphylococcus aureus. We will wait for the echo report. We will also order a pro-B today. cc: Roscoe Melvin MD MTDD
[2018-11-19] MEDS: NORCO-10 PO PRN (20:35)
[2018-11-20] MEDS: DUONEB (A & A) INH SCH ×6 (03:43→23:32)
--- NOTE | 2018-11-20 03:52 | ECHO REPORT ---
ORDER DATE: 11/19/2018 MEASUREMENTS: Left ventricular end-diastolic diameter 3.8. Systolic diameter 2.6. Septal thickness 1.5. Posterior wall thickness 1.3. Aortic root 3.7. Left atrium 5.6. SUMMARY: 1. Technically difficult study due to limited acoustic window quality. 2. The aortic valve demonstrates mild sclerosis, but adequate opening on 2-dimensional images. Peak gradient across the aortic valve is less than 10 mmHg. There is mild aortic regurgitation. Moderate mitral annular calcification is demonstrated. There is mild mitral regurgitation. Tricuspid valve is without evidence of structural abnormality while the pulmonic valve is not well demonstrated. There is mild tricuspid regurgitation. There is trace pulmonic insufficiency. The estimated systolic PA pressure by Doppler is 70-75 mmHg suggesting [id number] pulmonary hypertension. The aortic root is normal in size. 3. Normal left ventricular chamber size with moderate concentric left hypertrophy suggested. Estimated left ejection fraction appears to be at least 50%. Regional wall motion analysis is difficult given limitation of the study. There appears to be paradoxical septal motion probably related to underlying ventricular pacing. The left atrium is mildly enlarged. The right atrium is mildly enlarged. The right ventricle is grossly normal in size with grossly preserved right ventricular systolic function. Pacemaker lead is evident in the right ventricle. 4. No pericardial effusion. 5. Inferior vena cava not well demonstrated. cc: MD Roscoe Jones MD
[2018-11-20] MEDS: HUMALOG (PARKWAY) SUBQ SCH ×3 (06:25→16:37)
[2018-11-20] MEDS: LASIX IV SCH (07:01)
[2018-11-20] MEDS: PROTONIX PO SCH ×2 (07:01→22:19)
[2018-11-20 07:15] LABS: BASO# 0.04 X1000 (0.0-0.2); BASO% 0.2 % (0.0-0.8); EOS% 0.6 % (0.0-10.0); HEMATOCRIT 32.2 % (42.0-52.0); HEMOGLOBIN 10.6 g/dL (14.0-18.0); IMM GRAN# 0.08 X1000 (0.0-0.04); IMM GRAN% 0.5 % (0.0-0.5); LYMPH# 2.59 X1000 (1.2-3.4); LYMPH% 14.9 % (20.5-51.1); MCH 32.6 PG (27-31); MCHC 32.9 g/dL (33-37); MCV 99.1 FL (81-99); MONO# 1.78 X1000 (0.11-0.59); MONO% 10.2 % (1.7-9.3); NEUT# 12.85 X1000 (1.4-6.5); NEUT% 73.6 % (42.2-75.2); PLT 422 X1000 (130-400); RBC 3.25 XMIL (4.7-6.1); RDW 18.7 % (11.5-14.5); WBC 17.44 X1000 (4.8-10.8)
--- NOTE | 2018-11-20 07:27 | Diag Imaging Result Doc PS360 ---
EXAM: CHEST-PORTABLE - 11/20/2018 HISTORY: dyspnea TECHNIQUE: Portable chest COMPARISON: 11/16/2018 FINDINGS: Heart size appears borderline enlarged. There is transvenous cardiac pacemaker again seen. There are hazy basilar infiltrates or edema. There is no substantial pleural effusion or pneumothorax identified. IMPRESSION: Hazy basilar infiltrates or edema. Electronically signed by [place] Christy 11/20/2018 7:25 AM
[2018-11-20 07:56] LABS: AGAP 14; ALBUMIN 2.4 g/dL (3.5-5.0); ALKALINE PHOSPHATASE 112 U/L (32-122); BUN 21 mg/dL (8-22); CALCIUM 7.9 mg/dL (8.8-10.2); CHLORIDE 100 mmol/L (98-107); COSMO 279; CREATININE 0.9 mg/dL (0.7-1.2); ESTIMATED GFR > 60; GLUCOSE 106 mg/dL (70-104); GOT 17 U/L (10-34); GPT 11 U/L (10-44); POTASSIUM 3.4 mmol/L (3.5-5.1); SODIUM 138 mmol/L (136-145); TCO2 24 mmol/L (25-35); TOTAL PROTEIN 5.6 g/dL (6.3-8.3)
[2018-11-20] MEDS ORDERED: THIAMINE 100 MG in NS 50 ML IV SCH (10:00)
[2018-11-20] MEDS: LOTENSIN PO SCH (10:24)
[2018-11-20] MEDS: THERA M PLUS PO SCH (10:24)
[2018-11-20] MEDS: GLUCOPHAGE XR PO SCH (10:24)
[2018-11-20] MEDS: CELEXA PO SCH (10:24)
[2018-11-20] MEDS: COREG PO SCH ×2 (10:24→22:19)
[2018-11-20] MEDS: NORVASC PO SCH (10:25)
[2018-11-20] MEDS: DULCOLAX PR SCH ×2 (10:26→21:55)
[2018-11-20] MEDS: MIRALAX PO SCH (10:26)
[2018-11-20] MEDS: LACTULOSE PO SCH ×2 (10:26→22:20)
[2018-11-20] MEDS: SANTYL OINT TOP SCH (10:27)
--- NOTE | 2018-11-20 10:33 | PROGRESS NOTE ---
DATE: 11/20/2018 SUBJECTIVE: The patient denies having any acute complaints this morning. OBJECTIVE: Vital Signs: Temperature 97.4 degrees, pulse 70 per minute, respiratory rate 18 per minute, blood pressure 167/86, and pulse oximetry 96% on room air. General: The patient is alert and awake. He does not appear to be in any acute distress. Cardiovascular: First and second heart sounds are audible without any murmurs or gallops. Respiratory: No respiratory distress noted. Bilateral lung air entry is moderately decreased, but there are no rales or rhonchi present on auscultation. Gastrointestinal: Abdomen is soft and slightly tender on deep palpation all over. Normal bowel sounds are present. Musculoskeletal: There is no pedal edema or any deformities. DIAGNOSTIC DATA: CBC shows WBC count of 17.44, hemoglobin 10.6, hematocrit 32.2, and platelet count 422,000. In comparison, his CBC from yesterday showed WBC count of 17.99, hemoglobin 9.6, hematocrit 29.2 and platelet counts were found to be 430,000. INR is normal at 1.17. It was significantly elevated at 13.11 on admission. Chemistry is basically nondiagnostic except for low albumin levels of 2.4 and borderline potassium levels of 3.4. Chest x-ray done this morning showed hazy basilar infiltrates or edema. Echocardiogram done yesterday showed left ventricular ejection fraction to be estimated at 50%. Regional wall motion analysis was difficult given that the study was having issues and limitations. The estimated systolic pulmonary artery pressure by Doppler was found to be 70 to 75 mmHg suggesting moderate to severe pulmonary hypertension. ASSESSMENT: 1. Sepsis secondary to MRSA bacteremia. 2. Peripheral arterial disease. 3. History of atrial fibrillation and has been on warfarin for thromboembolism prophylaxis, but also has a recent history of subarachnoid hemorrhage, and had significantly elevated INR on admission to the hospital. 4. Hypertension. 5. Type 2 diabetes mellitus. 6. Pulmonary hypertension. PLAN: The patient has been on vancomycin IV that will be continued. He is having mild fluid overload for which we will continue with furosemide 40 mg IV q.12 hours. Would continue with the rest of the supportive care. I am going to obtain Cardiology consultation to further assist us in taking care of this very unfortunate gentleman who has been having sepsis. We will continue to monitor his electrolytes and CBC. Further recommendations will be given as per hospital course. cc: Jorge Luis Edmonds MD
[2018-11-20] MEDS ORDERED: VANCOMYCIN 1 GM/NS 1 GM/250 ML IVPB IV SCH (18:00)
[2018-11-20] MEDS ORDERED: THIAMINE 200 MG in NS 50 ML IV ONE (18:00)
--- NOTE | 2018-11-20 18:38 | Diag Imaging Result Doc PS360 ---
EXAM: CT HEAD W/O CONTRAST - 11/20/2018 HISTORY: mental status change TECHNIQUE: CT head without contrast COMPARISON: 11/09/2018 FINDINGS: There is an old infarct at the superior left frontal lobe similar to prior. There are old lacunar infarcts at the bilateral caudate nuclei/periventricular regions and at the right lamar similar to prior. There is no indication of recent infarct, although acute infarcts may not be immediately visible. There are atherosclerotic calcifications noted at the base the brain. There is no evidence of intracranial hemorrhage, mass effect, or midline shift. There is no evidence of skull fracture. There are ununited fractures of the nasal bones of nonspecific age. IMPRESSION: Chronic ischemic changes similar to prior. No visible acute intracranial abnormality. No hemorrhage or mass effect. This exam was performed using automated exposure control, adjustment of mA or kV according to patient size, and/or use of iterative reconstruction technique. Electronically signed by [place] Christy 11/20/2018 6:35 PM
--- NOTE | 2018-11-20 19:16 | CONSULTATION ---
DATE OF CONSULTATION: 11/20/2018 IMPRESSION: 1. Encephalopathy of unclear etiology. 2. Methicillin-resistant Staphylococcus aureus bacteremia of unclear etiology. Potential source may be foot ulcer. However, patient has permanent pacemaker. He also has spine hardware both of which might be potentially seated with Staph aureus. 3. Atrial fibrillation. 4. Status post permanent pacemaker. 5. Recently admitted with excessive anticoagulation with INR of 14 and soft tissue hemorrhage in right upper extremity. 6. Alcoholism. 7. Abnormal liver function tests and low albumin. Consider the possibility of alcohol-related liver disease, possibly even cirrhosis. 8. Traumatic head injury in the last several months. Patient reportedly was hospitalized in [place] with subarachnoid hemorrhage. 9. Hypertension. 10. Diabetes mellitus type 2. 11. Reported history of Ukukrxp-Rdbzn-Aweke disease. RECOMMENDATIONS: 1. Favor transfer to [facility] to broaden patient's evaluation and obtain input from Infectious Diseases and possibly neurology. 2. Favor pursuit of transesophageal echocardiography as endocarditis is not excluded. 3. Given his apparent intractable alcoholism, long-term anticoagulation with warfarin may prove exceedingly hazardous. 4. Check noncontrast head CT scan and ammonia level. 5. Discontinue acetaminophen and narcotics for now. 6. Administer thiamin. HISTORY: This 58-year-old white male with past history of atrial fibrillation and previous permanent pacemaker, hypertension, diabetes mellitus and excess alcohol use was admitted approximately 10 days ago with markedly prolonged INR on anticoagulation. INR was 14. He presented with soft tissue hemorrhage in right upper extremity. He also was noted to have leukocytosis. He was stabilized with conservative care and was going to be discharged to home after being hospitalized for about a week. However he developed fever the etiology of which is unclear. Blood cultures have shown methicillin resistant Staph aureus. He has also developed progressive encephalopathy. He had echocardiography which was technically difficult. Left ventricular ejection fraction appears to be at least 50%. Cardiology is consulted to assist with care. He is very encephalopathic but seems to be in a pleasant mood with this. He answers most questions by smiling and saying yes, no or okay. He is confused. PAST MEDICAL HISTORY: 1. Atrial fibrillation. 2. Status post permanent pacemaker. He is not aware of who his regular regulatory and compliance technician is. 3. Hypertension. 4. Diabetes mellitus type 2. 5. Reported history of Ziiasow-Lwzsl-Utgxp disease. 6. Alcoholism. 7. Status post unspecified spine surgery. He is reported to have hardware within his spine. ALLERGIES: He has no known drug allergies. MEDICATIONS PRIOR TO ADMISSION: As listed. SOCIAL HISTORY: He drinks whiskey on a regular basis. He also smokes a pack of cigarettes daily. FAMILY HISTORY: Negative for premature coronary disease. REVIEW OF SYSTEMS: Not reliably obtainable given patient's encephalopathy. PHYSICAL EXAMINATION: General: This is a pleasantly confused, older middle-aged white male in no distress. Vital signs: Blood pressure 149/79, heart rate 70, oxygen saturation 97 to 100 percent on room air. HEENT: Mucous membranes are moist. Neck: Supple. Jugular distention cannot be appreciated. There are no carotid bruits. Chest: Clear to auscultation with some diminished breath sounds at bases bilaterally. Cardiac Exam: Reveals a regular rate and rhythm without appreciable murmur or gallop. Abdomen: Soft. Bowel sounds audible. Extremities: Without edema. There are foot ulcers bilaterally. Neurologic: Reveals him to be awake and responsive. He is confused and does not know where he is. Speech is fluent. He moves all 4 extremities equally well. DATA: EKG obtained on admission demonstrates probable atrial paced, ventricular paced rhythm. LABORATORY DATA: From today includes a white blood cell count of 17.44, hematocrit 32.2, hemoglobin 10.6, platelet count 422,000. Sodium 138, potassium 3.4, chloride 100, carbon dioxide 24, BUN 21, creatinine 0.9, glucose 106, bilirubin 1.0, calcium 7.9, albumin 2.4. cc: Matt Sanchez MD
--- NOTE | 2018-11-20 19:24 | GENERAL SURGERY PROGRESS NOTE ---
DATE: 11/20/2018 TIME: 4:40 in the evening. Mr. Duckworth is currently poorly responsive, does not answer questions appropriately. He has a tremor. He has irregular rate and rhythm. His right femoral pulse is palpated. His left femoral pulse is absent. He has superficial ulcerations of his toes on the left and right heel. CTA shows occlusion of his left external iliac and a probable right superficial femoral artery occlusion. I do not think his ulcers really reflect the source of the high white count that he has, even though I admit he probably is immunosuppressed. He would have to show significant improvement in his mental status before being considered for revascularization. We will follow along. cc: Nilesh Salas MD
[2018-11-20] MEDS: HUMALOG SUBQ SCH (22:20)
[2018-11-21] MEDS: DUONEB (A & A) INH SCH ×6 (03:31→23:24)
[2018-11-21 05:27] LABS: BASO# 0.08 X1000 (0.0-0.2); BASO% 0.5 % (0.0-0.8); EOS% 0.6 % (0.0-10.0); HEMATOCRIT 31.5 % (42.0-52.0); HEMOGLOBIN 10.3 g/dL (14.0-18.0); IMM GRAN# 0.12 X1000 (0.0-0.04); IMM GRAN% 0.8 % (0.0-0.5); MCH 33.3 PG (27-31); MCHC 32.7 g/dL (33-37); MCV 101.9 FL (81-99); MONO# 1.45 X1000 (0.11-0.59); MONO% 9.2 % (1.7-9.3); NEUT% 67.9 % (42.2-75.2); PLT 352 X1000 (130-400); RBC 3.09 XMIL (4.7-6.1); RDW 18.8 % (11.5-14.5); WBC 15.75 X1000 (4.8-10.8)
[2018-11-21 05:53] LABS: AGAP 12; ALB/GLOB RATIO 0.7; ALBUMIN 2.3 g/dL (3.5-5.0); ALKALINE PHOSPHATASE 106 U/L (32-122); BUN 21 mg/dL (8-22); CALCIUM 7.4 mg/dL (8.8-10.2); CHLORIDE 102 mmol/L (98-107); COSMO 282; CREATININE 0.8 mg/dL (0.7-1.2); ESTIMATED GFR > 60; GLUCOSE 122 mg/dL (70-104); GOT 16 U/L (10-34); GPT 10 U/L (10-44); POTASSIUM 3.8 mmol/L (3.5-5.1); SODIUM 139 mmol/L (136-145); TCO2 25 mmol/L (25-35); TOTAL BILIRUBIN 0.96 mg/dL (0.20-1.00); TOTAL PROTEIN 5.5 g/dL (6.3-8.3)
[2018-11-21] MEDS: HUMALOG SUBQ SCH ×4 (06:32→20:05)
[2018-11-21] MEDS: PROTONIX PO SCH ×2 (06:32→20:06)
[2018-11-21] MEDS: COREG PO SCH ×2 (09:41→20:05)
[2018-11-21] MEDS: GLUCOPHAGE XR PO SCH (09:42)
[2018-11-21] MEDS: MIRALAX PO SCH (09:42)
[2018-11-21] MEDS: CELEXA PO SCH (09:42)
[2018-11-21] MEDS: THERA M PLUS PO SCH (09:42)
[2018-11-21] MEDS: NORVASC PO SCH (09:42)
[2018-11-21] MEDS: LOTENSIN PO SCH (09:42)
[2018-11-21] MEDS: LACTULOSE PO SCH ×2 (09:43→20:06)
[2018-11-21] MEDS: SANTYL OINT TOP SCH (09:43)
--- NOTE | 2018-11-21 09:46 | PROGRESS NOTE ---
DATE: 11/21/2018 SUBJECTIVE: The patient continues to be confused. He has been, according to previous progress notes like this, no acute issues noted as per nursing staff overnight. OBJECTIVE: Vital Signs: Temperature 98.0 degrees, heart rate 70, respiratory rate 20, blood pressure 166/62, O2 saturation 99% on room air. General Examination: This is a chronically ill- appearing and disheveled, 58-year-old male, lying in bed in no acute distress. HEENT: Head is normocephalic, atraumatic. Mucous membranes moist. Neck: No JVD noted. No carotid bruits. No lymphadenopathy. No thyromegaly. Cardiovascular exam: S1, S2 heard. No murmurs, gallops, or rubs. Regular rate and rhythm. Respiratory exam: There are some crackles and rhonchi noted in both pulmonary bases, but patient is not using any accessory muscles or having work of breathing. Abdomen: Soft. Nontender to palpation. Bowel sounds present. No organomegaly. Extremities: There is some muscle waste noted with foot ulcers bilaterally. Peripheral pulses bilaterally present; definitely both lower extremities are cold to touch. Neurological examination: Patient is awake, but confused. He does know where he is. Speech is okay, not slurred. He moves 4 extremities spontaneously. LABORATORY DATA: White cell count 15.75, hemoglobin 10.3, hematocrit 31.5, platelets 352. BMP is okay, except glucose 122. ProBNP greater than 35,000 from 2 days ago. ASSESSMENT AND PLAN: 1. Sepsis secondary to methicillin-resistant Staphylococcus aureus. Source of infection is unknown. At admission he was noticed to have some infiltrates in both lungs. He was treated for pneumonia. Blood culture positive for methicillin-resistant Staphylococcus aureus, so currently patient is receiving vancomycin. We have ordered repeat blood cultures again. We have consulted Dr. Sanjiv De Souza of Infectious Disease. I think considering that this patient has a pacemaker and also spinal rods, he may need to receive longer treatment with intravenous antibiotics probably for 6 to [address] see [address] De Souza has to say tomorrow. 2. Encephalopathy. It is not clear to me why he continues to be encephalopathic. It could be Wernicke- Korsakoff encephalopathy because he has known heavy history of alcoholism. In any case, he has been started on thiamine and we will see if that medication helps. 3. Atrial fibrillation, rate controlled, status post permanent pacemaker. Aware. 4. Supratherapeutic INR. That condition is resolved right now. 5. Alcohol abuse. As I mentioned before, this patient is an alcoholic. We will monitor for signs of withdrawal. 6. Hypertension. Blood pressure is a little bit elevated. We will continue to monitor this patient closely. 7. Diabetes mellitus type 2. We will continue with sliding scale insulin and Accu-Cheks before meals and also at bedtime. 8. Extremely severe aortoiliac disease. Dr. Salas from Vascular Surgery has been consulted, but they are not planning to do anything until this patient's mental status gets better. 9. Pulmonary hypertension, aware. Cardiology following. DISPOSITION: At this point, we will continue with same management. Awaiting recommendations from Infectious Disease. Addendum: I was called by nurse because patient mental status started to decline. He is definitively not talking and look more confused and obtunded. Will check ABG, Chest X ray, ammonia level and CT of head w/wo contrast and continue to monitor closely. cc: John Acevedo MD MTDD
[2018-11-21] MEDS: DULCOLAX PR SCH ×2 (10:41→20:05)
[2018-11-21 14:14] LABS: HEMOGLOBIN A1C 5.1 % (4.8-6.0)
--- NOTE | 2018-11-21 15:22 | Diag Imaging Result Doc PS360 ---
EXAM: CHEST-PORTABLE HISTORY: change in status TECHNIQUE: Portable chest single view COMPARISON: 11/20/2018 FINDINGS: Improved inspiratory effort. There are infiltrates which remain in the lower left lung. Heart is mildly enlarged and there is a left-sided pacemaker as well as mild pulmonary edema. Small left pleural effusion. IMPRESSION: Mild interval improvement. Electronically signed by Nando Sifuentes 11/21/2018 3:19 PM
--- NOTE | 2018-11-21 15:27 | GENERAL SURGERY PROGRESS NOTE ---
DATE: 11/21/2018 SUBJECTIVE: Mr. Duckworth has now been transferred to [facility]. His mental status appears better today. He is communicative, but he is confused still. He reports to me that he really does not want to walk. OBJECTIVE: His physical exam is essentially the same. LABORATORY: His white count is improved somewhat. PLAN: I still feel that revascularization is not indicated until he shows appropriate cognition. I will follow along. cc: Nilesh Salas MD
--- NOTE | 2018-11-21 15:36 | CARDIOLOGY PROGRESS NOTE ---
DATE: 11/21/2018 SUBJECTIVE: Mr. Duckworth makes eye contact with the examiner, but he does not interact further than that, does not follow commands. OBJECTIVE: Vital Signs: The patient is afebrile. He did have a T-max of 100.6 degrees on the . His heart rate is 70, blood pressure 148/91. General: No acute distress. Cardiovascular: He sounds to be in a regular rate and rhythm. I do not hear any obvious murmurs. He has no S3. He has no lower extremity edema. Chest: Exam is clear to auscultation bilaterally. No increased work of breathing. Abdomen: Soft, nontender. PERTINENT DATA: Laboratory data shows a white count of 15.7, hematocrit is 31, platelet count is 352. His sodium is 139, potassium 3.8, his BUN is 21 and creatinine is 0.8. ASSESSMENT: Mr. Duckworth is a 58-year-old gentleman, who has a methicillin-resistant Staphylococcus aureus bacteremia. PLAN: Dr. Sanchez saw the patient yesterday and recommended a transesophageal echo to evaluate for possible endocarditis. I have made him n.p.o. after midnight for a potential procedure on Friday. Dr. Sanchez will be back on Friday to follow the patient. cc: Harpreet Plunkett MD
[2018-11-21 16:19] LABS: ALLEN TEST YES; BE 5.1 mmoll (-3.0-3.0); BLOOD TYPE ARTERIAL; HCO3-(ACT) 28.9 mmoll (20.0-26.0); O2(CT) 13.9 mL/dL (15.0-23.0); O2HB 94.5 % (95.0-99.0); PCO2(98.6) 39 mmHg (35-45); PO2(98.6) 84 mmHg (60-100); SAMPLE BLOOD; SAO2 97.8 % (95.0-100.0); THB 10.4 g/dL (11.5-17.4); pH(98.6) 7.48 (7.35-7.45)
[2018-11-21 16:20] LABS: MODALITY CANNULA
--- NOTE | 2018-11-21 17:04 | Diag Imaging Result Doc PS360 ---
EXAM: CT HEAD W/WO CONTRAST HISTORY: mental status change TECHNIQUE: CT head with and without contrast COMPARISON: 11/20/2018 FINDINGS: No hemorrhage. Chronic microvascular ischemic changes and multiple small old infarcts in addition to a larger old left parietal infarct. No enhancing lesion on the post contrasted images. Subtle hypodense region in the left temporal occipital areas. IMPRESSION: 1.No hemorrhage 2.Multiple old infarcts 3.Possible recent left temporal occipital infarct. An MRI may be beneficial. This exam was performed using automated exposure control, adjustment of mA or kV according to patient size, and/or use of iterative reconstruction technique. Electronically signed by Nando Sifuentes 11/21/2018 5:01 PM
[2018-11-21] MEDS ORDERED: VANCOMYCIN 1 GM/NS 1 GM/250 ML IVPB IV SCH (18:00)
[2018-11-21] MEDS: ASPIRIN PR SCH (18:05)
[2018-11-21] MEDS: THIAMINE 100 MG in NS 50 ML IV SCH (20:10)
[2018-11-21] MEDS ORDERED: APRESOLINE IV PRN (23:50)
[2018-11-22] MEDS: DUONEB (A & A) INH SCH ×6 (03:36→23:18)
[2018-11-22 05:20] LABS: ALLEN TEST YES; BE 0.4 mmoll (-3.0-3.0); BLOOD TYPE ARTERIAL; HCO3-(ACT) 25.1 mmoll (20.0-26.0); METHB 0.8 % (0.0-1.5); O2(CT) 17.8 mL/dL (15.0-23.0); O2HB 93.1 % (95.0-99.0); PCO2(98.6) 31 mmHg (35-45); PO2(98.6) 73 mmHg (60-100); SAMPLE BLOOD; SAO2 96.7 % (95.0-100.0); THB 13.6 g/dL (11.5-17.4); pH(98.6) 7.48 (7.35-7.45)
[2018-11-22 05:21] LABS: MODALITY CANNULA
[2018-11-22 05:54] LABS: AGAP 15; BUN 20 mg/dL (8-22); CALCIUM 8.4 mg/dL (8.8-10.2); CHLORIDE 102 mmol/L (98-107); COSMO 285; CREATININE 0.7 mg/dL (0.7-1.2); ESTIMATED GFR > 60; GLUCOSE 158 mg/dL (70-104); POTASSIUM 3.6 mmol/L (3.5-5.1); SODIUM 140 mmol/L (136-145); TCO2 23 mmol/L (25-35)
[2018-11-22 05:58] LABS: BASO# 0.06 X1000 (0.0-0.2); BASO% 0.3 % (0.0-0.8); EOS# 0.05 X1000 (0.0-0.7); EOS% 0.2 % (0.0-10.0); HEMATOCRIT 37.3 % (42.0-52.0); HEMOGLOBIN 12.3 g/dL (14.0-18.0); IMM GRAN# 0.17 X1000 (0.0-0.04); IMM GRAN% 0.8 % (0.0-0.5); LYMPH% 12.4 % (20.5-51.1); MCH 33.3 PG (27-31); MCV 101.1 FL (81-99); MONO# 1.24 X1000 (0.11-0.59); MONO% 6.2 % (1.7-9.3); MPV 10.5 FL (7.4-10.4); NEUT# 16.09 X1000 (1.4-6.5); NEUT% 80.1 % (42.2-75.2); PLT 412 X1000 (130-400); RBC 3.69 XMIL (4.7-6.1); RDW 18.9 % (11.5-14.5); WBC 20.11 X1000 (4.8-10.8)
[2018-11-22] MEDS: HUMALOG SUBQ SCH ×4 (06:01→21:26)
[2018-11-22] MEDS: PROTONIX PO SCH ×2 (06:02→21:11)
[2018-11-22 06:32] LABS: LYMPHS 8 % (21-51); MONO 6 % (1-9); SEGS 86 % (42-75)
--- NOTE | 2018-11-22 06:59 | GENERAL SURGERY PROGRESS NOTE ---
DATE: 11/22/2018 Mr. Duckworth is less communicative today. His exam was essentially the same. He remains afebrile, heart rate 69, blood pressure 184/90. His white count is back up to 20,000 today. His other labs appear about the same. He is scheduled for a transesophageal echocardiogram on Friday. cc: Nilesh Salas MD
--- NOTE | 2018-11-22 09:07 | PROGRESS NOTE ---
DATE: 11/22/2018 SUBJECTIVE: The patient definitely is not only more confused, but non-talkative. There has been a change compared with yesterday in which he is more obtunded. We have done yesterday, a CT of the chest, which showed a new stroke. OBJECTIVE: Vital Signs: Temperature 97.5 degrees, heart rate 70, respiratory rate 17, blood pressure 181/91, O2 saturation 97% on 2 L nasal cannula. General: This is a chronically ill- appearing, 58-year-old, male, lying in bed in no acute distress. HEENT: Head is normocephalic, atraumatic. Mucous membranes dry. Neck: No JVD noted. No carotid bruits. No lymphadenopathy. No thyromegaly. Cardiovascular: S1, S2 heard. No murmurs, gallops, or rubs. Regular rate and rhythm. Respiratory: Minimal crackles noted in both pulmonary bases, but the patient is not using any accessory muscles or having work of breathing. Abdomen: Soft. Nontender to palpation. Bowel sounds present. No organomegaly noted. Extremities: Some muscle wasting noted, and also foot ulcers bilaterally. Peripheral pulses present, but faint. Also, both lower extremities continue to be cold to touch. Neurological: There has been a change in comparing with yesterday. This patient is definitely more obtunded. Of note is right hemiparesis with increased muscle tone in the right upper extremity. The patient apparently is not able to talk, does not follow commands at all, does not move the right side of his body. LABORATORY DATA: White cell count 20.11, hemoglobin 12.3, hematocrit 37.3, platelets 412. BMP shows normal renal function with glucose 158. ASSESSMENT AND PLAN: 1. New left temporal occipital infarct. Yesterday, there has been a change in mental status, and we have ordered a CT of the head with ammonia level and also an ABG and an x-ray. This patient seems to have a new stroke. At this point, we are going to consult Neurology tomorrow. Will consider doing a CT angiogram of the head and neck, but will need to be very careful because this patient is also on vancomycin, and that can cause worsening renal failure. In any case, will continue to monitor this patient closely. 2. Sepsis secondary to methicillin-resistant Staphylococcus aureus. As we mentioned before, the source of this infection is unknown to me. Dr. De Souza from Infectious Disease is following this patient. Will continue with the same management. 3. Encephalopathy. Before this stroke happened, I thought that he has developed Wernicke- Korsakoff encephalopathy, and he has been receiving thiamine for that, but unfortunately with this new stroke, this condition will get worse. Will continue to monitor. 4. Atrial fibrillation, rate controlled, status post permanent pacemaker. Aware. 5. Supratherapeutic INR, resolved. 6. Alcohol abuse. No withdrawals noted. 7. Hypertension. At this point, considering this new stroke, will allow permissive hypertension. Will treat blood pressure if that is higher than 200 systolic blood pressure. 8. Diabetes mellitus type 2. Will continue with sliding scale insulin and Accu-Chek before meals and also at bedtime. 9. Extremely severe aortoiliac disease. Dr. Salas from Vascular Surgery is following this patient, but of course, with this new stroke and mental status changes, they are not planning to do any procedure now. 10. Disposition. At this point, will continue to monitor this patient closely. cc: John Acevedo MD
[2018-11-22] MEDS: CUBICIN 500 MG in NS 100 ML IV SCH (09:26)
[2018-11-22] MEDS: ASPIRIN PR SCH (09:44)
--- NOTE | 2018-11-22 09:44 | INFECTIOUS DISEASE CONSULT REP ---
DATE: 11/22/2018 ADDENDUM: The patient's first day of antibiotic administration is the first day that the patient had sterile blood cultures. The patient's blood cultures were sterile on 11/20/2018, and therefore he has had 2 days of antibiotic treatment because today's date is 11/22/2018. cc: Sanjiv De Souza MD
--- NOTE | 2018-11-22 09:47 | INFECTIOUS DISEASE CONSULT REP ---
DATE: 11/22/2018 NOTE: It should be noted the patient is unable to give me any information and no family members present. The information that I have obtained is from the computer. CONCLUSION: The patient has methicillin-resistant Staph aureus bacteremia. It is possible that he has endocarditis. Also, he could have infection of his pacemaker defibrillator, which is implanted on the left side and also he could have infection of Carroll rods that are on his spine. The patient also may have pneumonia. RECOMMENDATIONS: I am going to switch the patient from vancomycin to daptomycin because there is a possibility that the patient is going to have IV contrast for his CT scan of the head, and I think there would be less likelihood of renal toxicity if the patient was on another antibiotic during that exam and not vancomycin. Once the study is done, then I think the patient can be switched back to vancomycin. The patient will require 6 weeks of IV antibiotic even if he does not have endocarditis because his Carroll rods and pacemaker may have been infected hematogenously. DISCUSSION: As mentioned above, the patient is unable to provide a history and no family members present. The patient has a methicillin-resistant Staph aureus bacteremia, the exact origin of which I am uncertain. On CT scan, he has multiple old infarcts and a recent temporooccipital infarct. Chest x-ray shows pulmonary edema and possible left lower lobe infiltrate suspicious for pneumonia. The patient had an aortogram and it showed severe atherosclerotic disease. PAST MEDICAL HISTORY: Positive for atrial fibrillation. Subarachnoid hemorrhage. The patient has a pacemaker and possibly a combined pacemaker-defibrillator in place. The patient also has hypertension. 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 He also is a diabetic. The patient when he came in had a swollen and ecchymotic right upper extremity. Now the ecchymotic areas are gone, but the arm is still more swollen than the left arm. SURGICAL HISTORY: As mentioned above, the patient has a pacemaker and it could also be a defibrillator as well. He has had spine surgery and he apparently had rods placed on his spine. SOCIAL HISTORY: The patient has no drug allergies. At home, he takes Lotensin , carvedilol, hydrocodone, metformin and Xarelto. When the patient came in, his PT was very high. Also, the patient does smoke cigarettes and he is an alcoholic. PHYSICAL EXAMINATION: Vital Signs: Temperature is 97.5 degrees, pulse 70, respirations 17, blood pressure 181/91. General: This is an ill-appearing middle-aged male. He occasionally thrashes around in bed. Head/eyes/ears/nose/throat: No drainage noted from the nose or ears. The patient's mouth does not open. Neck: No meningismus. Lungs: Clear to auscultation. Cardiovascular: Heart rate is irregular. Thorax: Patient has a pacemaker and possibly combined defibrillator in place in the left chest. The site is not erythematous or edematous. Abdomen: Soft and nontender. Neurologic: As mentioned above, the patient occasionally thrashes around. The patient does not follow any verbal requests such as asking him to move his arms or open his eyes. There is no tremor. Integument: Patient had multiple small sores. They are not erythematous or purulent. Thank you for the consult. cc: Sanjiv De Souza MD MTDD
[2018-11-22] MEDS: CELEXA PO SCH (09:51)
[2018-11-22] MEDS: GLUCOPHAGE XR PO SCH (09:52)
[2018-11-22] MEDS: COREG PO SCH ×2 (09:52→21:11)
[2018-11-22] MEDS: DULCOLAX PR SCH ×2 (09:52→21:11)
[2018-11-22] MEDS: LOTENSIN PO SCH (09:53)
[2018-11-22] MEDS: MIRALAX PO SCH (09:53)
[2018-11-22] MEDS: LACTULOSE PO SCH ×2 (09:53→21:11)
--- NOTE | 2018-11-22 09:53 | INFECTIOUS DISEASE CONSULT REP ---
DATE: 11/22/2018 ADDENDUM: As regarding the patient's treatment, he will need 6 weeks of antibiotics because he has a defibrillator and Carroll rods in place which may have become infected hematogenously. The patient's condition now seems very poor and if he is not a surgical candidate to have a valve replacement, he would not need to have a transesophageal echocardiogram because, as mentioned above, he is going to be treated for a total of 6 weeks with IV antibiotics. cc: Sanjiv De Souza MD
[2018-11-22] MEDS: THERA M PLUS PO SCH (09:54)
[2018-11-22] MEDS: SANTYL OINT TOP SCH (09:54)
[2018-11-22] MEDS: NORVASC PO SCH (09:54)
[2018-11-22] MEDS: CLINIMIX E 4.25%-5% SOLUTION 1,000 ML IV SCH (14:45)
[2018-11-22] MEDS: LIPOSYN 20% 250 ML IV SCH (14:45)
--- NOTE | 2018-11-22 20:00 | Diag Imaging Result Doc PS360 ---
EXAM: CT ANGIOGRAM HEAD/NECK - 11/22/2018 HISTORY: change in mental status TECHNIQUE: CT angiogram neck and head with intravenous contrast. Axial and 3-D MIP images are obtained. COMPARISON: None. FINDINGS: CT neck: There is calcified atherosclerotic plaque with less than or equal to 50% stenosis at the carotid bulb/internal carotid origin on the right. There is a heavily calcified atherosclerotic plaque with approximately 65-70% stenosis at the carotid bulb/internal carotid origin on the left. There are tortuosity and atherosclerotic plaquing with approximately 50% stenosis of the distal left internal carotid artery, slightly proximal to the carotid foramen. CT head: There are artifacts from skull base which limit detail. There is early bifurcation of the left middle cerebral artery. There is apparent tight stenosis of the more inferior of the two main left middle cerebral artery branches. There is smoothly tapered narrowing of the left occipital artery. There is no aneurysm identified. IMPRESSION: CT neck: Mild stenosis at carotid bulb/internal carotid origin on the right. Heavily calcified plaque with moderate stenosis at the carotid bulb/internal carotid origin on the left. Tortuosity and approximately 50% stenosis of the distal left internal carotid artery slightly proximal to the carotid foramen. CT HEAD: Tight stenosis at the more inferior of the two main branches of the left middle cerebral artery. Smoothly tapered narrowing of left posterior cerebral artery. Electronically signed by Washington Christy 11/22/2018 7:58 PM
[2018-11-22] MEDS: THIAMINE 100 MG in NS 50 ML IV SCH (21:25)
[2018-11-23] MEDS: DUONEB (A & A) INH SCH ×6 (03:34→23:05)
[2018-11-23] MEDS: CLINIMIX E 4.25%-5% SOLUTION 1,000 ML IV SCH ×2 (04:37→21:17)
[2018-11-23 05:45] LABS: BASO# 0.05 X1000 (0.0-0.2); BASO% 0.3 % (0.0-0.8); EOS# 0.02 X1000 (0.0-0.7); EOS% 0.1 % (0.0-10.0); HEMATOCRIT 32.2 % (42.0-52.0); HEMOGLOBIN 10.4 g/dL (14.0-18.0); IMM GRAN# 0.11 X1000 (0.0-0.04); IMM GRAN% 0.6 % (0.0-0.5); LYMPH# 2.82 X1000 (1.2-3.4); LYMPH% 14.2 % (20.5-51.1); MCHC 32.3 g/dL (33-37); MCV 102.2 FL (81-99); MONO# 1.75 X1000 (0.11-0.59); MONO% 8.8 % (1.7-9.3); MPV 10.7 FL (7.4-10.4); NEUT# 15.08 X1000 (1.4-6.5); PLT 414 X1000 (130-400); RBC 3.15 XMIL (4.7-6.1); RDW 19.5 % (11.5-14.5); WBC 19.83 X1000 (4.8-10.8)
[2018-11-23] MEDS: HUMALOG SUBQ SCH ×4 (06:01→21:08)
[2018-11-23] MEDS: PROTONIX PO SCH (06:02)
[2018-11-23 06:08] LABS: AGAP 12; BUN 30 mg/dL (8-22); CALCIUM 8.4 mg/dL (8.8-10.2); CHLORIDE 107 mmol/L (98-107); COSMO 296; CREATININE 0.8 mg/dL (0.7-1.2); ESTIMATED GFR > 60; GLUCOSE 179 mg/dL (70-104); POTASSIUM 3.3 mmol/L (3.5-5.1); SODIUM 143 mmol/L (136-145); TCO2 24 mmol/L (25-35)
--- NOTE | 2018-11-23 06:45 | INFECTIOUS DISEASE PROGRESS NO ---
DATE: 11/23/2018 PRESENT ILLNESS: The patient has methicillin-resistant Staph aureus bacteremia. He also has a defibrillator and Carroll rods in his spine, either one of which or both could have become infected hematogenously. The patient also may have endocarditis. MEDICATIONS: The patient is on daptomycin. This is day 3 of treatment with antibiotics for the patient because day 1 is the first day that the repeat blood cultures are sterile which occurred three days ago. PHYSICAL EXAMINATION: Vital Signs: Temperature is 98.2 degrees, pulse 73, respirations 20, blood pressure 172/89. General: This is an ill-appearing, somewhat delirious middle- aged male. He thrashes around in bed. Head/eyes/ears/nose/throat: No drainage noted from the nose or ears. He does track with his eyes. Neck: No meningismus. Lungs: Clear to auscultation. Cardiovascular: Regular heart rate. Abdomen: Soft and nontender. Chest: Thorax- patient has a defibrillator on the left side of his chest. The site is not red or swollen. Back: You can feel in the patient's back something extremely hard. Possibly these are the Carroll rods that the patient has. Neurologic: The patient is delirious. He does not follow requests such as to move his arms or legs. The patient does not have any tremor, but he does kind of thrash around in bed. Integument: No rash. Extremities: The patient's arms are not swollen or erythematous. LAB AND X-RAY: CT scan of the head and neck showed carotic stenosis. [place] [address], hemoglobin 10.4, and platelet count 414,000. Creatinine is 0.8, GFR is greater than 60. ASSESSMENT AND PLAN: Patient has methicillin-resistant Staph aureus bacteremia with possible involvement of his pacemaker and Carroll rods. The patient at one time may have had either basilar infiltrates or edema. I doubt that he has pneumonia now. He is not coughing. He does not seem to be short of breath, and listening to him I do not hear any rales or rhonchi. My plan is to continue IV daptomycin for a total of 6 weeks. I am also going to get a chest x-ray for tomorrow and a CK. COMORBIDITIES: Patient's comorbidities include the following: The patient has had a subarachnoid hemorrhage. He has a pacemaker in place. The pacemaker may be a pacemaker defibrillator. The patient and the has hypertension and Charcot Tyesha Tooth disease. cc: Sanjiv De Souza MD MTDD
[2018-11-23] MEDS: ASPIRIN PR SCH (08:47)
[2018-11-23] MEDS: PROTONIX IV SCH ×2 (08:54→21:17)
[2018-11-23] MEDS: MIRALAX PO SCH (08:55)
[2018-11-23] MEDS: CELEXA PO SCH (08:55)
[2018-11-23] MEDS: LACTULOSE PO SCH ×2 (08:55→21:09)
--- NOTE | 2018-11-23 08:55 | PROGRESS NOTE ---
DATE: 11/23/2018 SUBJECTIVE: The patient is a little bit more awake today. Yesterday afternoon we found out that he had another stroke, and he is a little bit more awake, but not talking, and he is still not able to move the right side of his body. No other issues noted as per the nursing staff overnight. OBJECTIVE: Vital Signs: Temperature 98.2 degrees, heart rate 67, respiratory rate 16, blood pressure 168/90, and O2 saturation 100% on 2 liters nasal cannula. General Examination: This is a chronically ill-appearing, frail and disheveled 58-year-old male, lying in bed, in no acute distress. HEENT: Head is normocephalic, atraumatic, with mucous membranes dry. Neck: No JVD noted. No carotid bruits. No lymphadenopathy. No thyromegaly. Cardiovascular: S1 and S2 heard. Irregularly irregular heart rhythm. No murmurs, gallops, or rubs noted. Respiratory: Crackles and rhonchi noted in both pulmonary bases. No work of breathing. No using accessory muscles. Abdomen: Soft, nontender to palpation. Bowel sounds present. No organomegaly noted. Extremities: Muscle wasting noted, also foot ulcers as well bilaterally. Peripheral pulses present, but faint. Lower extremities are cold to touch. Neurological: The patient is a little bit more awake, but he does not talk to me. We have noticed the same right hemiparesis with increased muscle tone in the right side. He does follow basic commands, like squeeze my fingers. LABORATORY DATA: White cell count 19.83, hemoglobin 10.4, hematocrit 32.2, platelets 414,000. Potassium 3.3. ASSESSMENT AND PLAN: 1. New left temporal occipital infarct. That is what we found out the day before yesterday in the CT of the head because of worsening altered mental status. We have also perform a CTA of head and neck, which basically showed mild stenosis in the carotid bulb, internal carotid origin on the right, and in the head we found out tight stenosis at the more inferior of the 2 main branches of the left middle cerebral artery. In that regard, the patient has been started on regular aspirin and we have consulted Dr. Melissa from neurology. We will see what he has to say. 2. Sepsis secondary to methicillin-resistant Staphylococcus aureus. Considering that this patient has defibrillator and also Carroll rods is in his spine, Dr. De Souza is planning to continue with antibiotics, in this case daptomycin, for a total of 6 weeks. White cell count is still elevated. We will continue to monitor CBC daily. 3. Encephalopathy, multifactorial. This stroke definitely is contributing, and also the patient has Wernicke-Korsakoff's encephalopathy, and for that he was receiving thiamine intravenously. At this point, we will continue with the same management. 4. Atrial fibrillation. The rate is controlled. The patient has defibrillator placed. 5. Alcohol abuse. No withdrawals noted on this patient. 6. Hypertension. Considering he has this new stroke, we are going to allow permissive hypertension for 72 hours, but we will treat elevated systolic blood pressure if it is higher than 200. 7. Diabetes mellitus type 2. We will continue with sliding scale insulin and Accu-Chek before meals and also at bedtime. 8. Extremely severe aortoiliac disease. Dr. Salas from vascular surgery is following this patient, but he is not going to perform any revascularization procedure because of his mental status. Now, that he developed a stroke, I do not think he is an ideal candidate to have any invasive procedures at this time. 9. Disposition. At this point, we will continue to monitor this patient closely in the [facility]. Considering all of his comorbidities and the need for intermediate antibiotics, one option that we may need to discuss with director social is intermediate acute care. We will see what happens. cc: John Acevedo MD [facility]ina
[2018-11-23] MEDS: SANTYL OINT TOP SCH (08:56)
[2018-11-23] MEDS: NORVASC PO SCH (08:56)
[2018-11-23] MEDS: THERA M PLUS PO SCH (08:56)
[2018-11-23 09:14] LABS: INR 1.07; PROTIME 14.8 Seconds (11.0-16.0)
[2018-11-23 09:15] LABS: PTT 34.7 Seconds (22.3-41.8)
[2018-11-23] MEDS: DULCOLAX PR SCH ×2 (09:32→21:18)
[2018-11-23] MEDS: POTASSIUM CHLORIDE 20 MEQ/SWI 20 MEQ/100 ML IVPB IV SCH ×2 (09:55→15:33)
[2018-11-23] MEDS: CUBICIN 500 MG in NS 100 ML IV SCH (09:55)
[2018-11-23] MEDS ORDERED: XYLOCAINE-MPF 2% ONE (11:29)
[2018-11-23] MEDS ORDERED: AMIDATE ONE (11:29)
[2018-11-23] MEDS ORDERED: XYLOCAINE 4% TOPICAL SOLUTION ONE (11:31)
[2018-11-23] MEDS ORDERED: SODIUM CHLORIDE 0.9% 10 ML ONE (11:31)
[2018-11-23] MEDS ORDERED: XYLOCAINE 2% VISCOUS ONE (11:31)
[2018-11-23] MEDS ORDERED: CLAVE TWINSITE 32 IN 11959 ONE (11:59)
[2018-11-23] MEDS ORDERED: ANESTHESIA PB SET 88 IN 5742 ONE (11:59)
[2018-11-23] MEDS ORDERED: NS 1,000 ML ONE (11:59)
--- NOTE | 2018-11-23 12:53 | Transesophageal Echocardiogram ---
DATE: 11/23/2018 PHYSICIAN: Dr. Angela REQUESTING PHYSICIAN: CLINICAL INDICATIONS: The patient is with stroke, embolic stroke suspected, atrial fibrillation, pacemaker placement in the past. PROCEDURE: Transesophageal echocardiography DESCRIPTION: The patient was consented over the phone. We talked to Jeanette, daughter, number . Anesthesia services from Dr. Ballard were required. The patient was brought to the cardiac slab depiler operator. The patient received IV anesthesia, standard etomidate, good sedation achieved. Esophagus was intubated without difficulty. Multiple views of the cardiac structures were obtained. CONCLUSIONS: The following is a summary of the main findings: 1. The left atrium is enlarged. It shows spontaneous echocontrast with markedly decreased flow velocity within the left atrial appendage. Interatrial septum is intact. There is mild lipomatosis of the septum. 2. The right atrium is unremarkable. Pacemaker leads are noted coming through the superior vena cava into the right atrium and right ventricle. No vegetation is noted. 3. The tricuspid valve appears to be unremarkable. 4. The right ventricle appears to be normal. 5. Pulmonic valve is grossly normal. Color flow mapping is unremarkable. 6. Aortic valve has 3 cusps. It shows very tiny degree of regurgitation. There is no obvious vegetation or stenosis. 7. Mitral valve shows mild to moderate degree of regurgitation. 8. The left ventricular ejection fraction is decreased, estimated to be at 30% .There is wall motion abnormality. 9. Pulmonary venous flow shows predominance of the diastolic component. 10.The descending thoracic aorta shows mild degree of diffuse intimal thickening. No dissection is noted. SUMMARY: This study is negative for the presence of thrombus; however, there are decreased velocities of flow within the left atrial appendage and moderate degree of spontaneous echocontrast. That increases risk for embolic stroke. The patient tolerated the procedure quite well. Clinical correlation is recommended. cc: MD Harpreet Thorne MD MTDD
--- NOTE | 2018-11-23 15:48 | Diag Imaging Result Doc PS360 ---
CHEST-1 VIEW - 11/23/2018 INDICATION: pneumonia COMPARISON: 11/21/2018 FINDINGS: Stable pacemaker. Cardiomegaly has improved. Stable opacification or atelectasis at the left lower lobe. No new infiltrates. No large pleural effusion. IMPRESSION: Improvement in the cardiomegaly. Otherwise no change. Electronically signed by Tru Vides 11/23/2018 3:45 PM
[2018-11-23] MEDS: LIPOSYN 20% 250 ML IV SCH (17:38)
--- NOTE | 2018-11-23 19:21 | CONSULTATION ---
DATE OF CONSULTATION: 11/23/2018 REASON FOR CONSULT: Stroke. HISTORY OF PRESENT ILLNESS: This is a [id number]- male with multiple medical problems who was admitted on 11/09/2018 with markedly elevated INR of 13 and a soft tissue injury to the right arm with hematoma. He has a history of atrial fibrillation and had been on Coumadin although that was discontinued on admission due to his INR. The patient also has a pacemaker. During his hospitalization, he developed a fever and was diagnosed with MRSA bacteremia. I believe around 11/19/2018 or 11/20/2018, that he was noted to be somewhat confused. A head CT was obtained that did not show acute findings initially. That head CT was repeated on 11/21/2018 and showed possible recent ischemic infarct within the left temporal occipital region. I believe at that time he was noted to have right-sided weakness and a paucity of speech. He was started on aspirin daily. Nurse reports she has noticed some mild improvement in his speech but says he still has significant limitation. The patient went for BETH today for further work up. There was no evidence of thrombus or vegetation. PAST MEDICAL HISTORY: 1. Alcoholism. 2. Small traumatic subarachnoid hemorrhage in July of 2018. 3. Atrial fibrillation, Coumadin held this admission due to super therapeutic INR of 13. 4. Pacemaker. 5. Diabetes. 6. Hypertension. 7. Some type of spine surgery with hardware. 8. Jcbzjic-Przdu-Enyut disease. 9. Peripheral vascular disease. FAMILY HISTORY: Unobtainable due to patient's factors. SOCIAL HISTORY: He drinks whiskey regularly. No illicits. He continues to smoke. ALLERGIES: NO KNOWN DRUG ALLERGIES LISTED. CURRENT MEDICATIONS: Include aspirin 300 mg HI daily. Others reviewed in the chart. REVIEW OF SYSTEMS: Unobtainable due to the patient's factors. PHYSICAL EXAM: Vital signs: He is afebrile, blood pressure currently 168/78, pulse 70s-90s, respirations 16 and 98% on 2 L nasal cannula. General: Mr. Duckworth is supine in bed with his eyes closed. He arouses to verbal stimulus but only regards intermittently. He moans frequently. He has gone for a BETH recently. He does not follow commands. He does not answer questions. HEENT: Pupils are equal, round and reactive to bright light. Gaze is conjugate and forward. He has full horizontal eye movement. He resists passive eye opening pretty consistently and it is difficult to assess his visual lang. There is a right lower facial droop. Neurological : Tone is decreased in the right arm compared to the left. His right upper extremity is flaccid. He is at least antigravity in the left upper extremity, and I see him spontaneously lift the arm to his face. I believe he also has at least mild weakness of the right lower extremity compared to the left. His response to noxious stimuli on the right is reduced compared to the left, but there is response. Reflexes are reduced bilaterally. There is no clonus. Plantar response is silent. He is not attentive enough for coordination testing. DIAGNOSTICS: Head CT is as per above. Personally reviewed. CTA of the head and neck showed tight stenosis at the inferior branch of the left MCA and smoothly tapered narrowing of the left DIRECTOR OF INSTITUTIONAL RESEARCH. Heavily calcified plaque with moderate stenosis at the carotid bulb, internal carotid origin on the left as well as tortuosity and approximately 50% stenosis of the distal left ICA slightly proximal to the carotid foramen. Mild stenosis at the carotid bulb on the right. No aneurysms. A CT of the aorta with run off showed extremely severe aortoiliac atherosclerotic disease and lower extremity atherosclerotic disease. BETH as per above. No evidence of thrombus or vegetation although there are decreased velocities of flow within the left atrial appendage and a moderate degree of spontaneous echo contrast which increases risk for embolic stroke. White count is 19, BUN 30, creatinine 0.8, blood sugar 120s-202 and A1C of 5. ASSESSMENT AND PLAN: 1. Recent ischemic infarct within the left temporal occipital region. He has a right hemiparesis and is likely aphasic. 2. Encephalopathy. 3. MRSA bacteremia and sepsis. 4. Atrial fibrillation. Had been on chronic Coumadin therapy. That was held this admission due to an INR of 13 on arrival. 5. There was a concern for GI bleed with Heme positive stool this admission. 6. Severe peripheral vascular disease. 7. Hypertension and diabetes. 8. Alcoholism with recurrent falls. Agree with aspirin therapy as you are doing. He has an indication for anticoagulation for secondary stroke prevention, but he may have too many bleeding risks at this time for anticoagulation. His alcoholism, falls and question of whether or not he is taking his medications correctly are some of the issues. He has a server assistant indication for anticoagulation. BETH did not reveal any vegetations so endocarditis is unlikely. I would allow some permissive hypertension over the next couple of days and avoid hypotension. He needs to have speech therapy clear him for a diet following this set back. PT/OT and ST. Continue neurological checks. Thank you for the consultation. cc: Zulema Peace MD MTDD
[2018-11-23] MEDS: THIAMINE 100 MG in NS 50 ML IV SCH (21:17)
[2018-11-24] MEDS: DUONEB (A & A) INH SCH ×6 (03:25→23:42)
[2018-11-24 05:31] LABS: BASO# 0.04 X1000 (0.0-0.2); BASO% 0.2 % (0.0-0.8); EOS% 0.6 % (0.0-10.0); HEMATOCRIT 32.3 % (42.0-52.0); HEMOGLOBIN 10.2 g/dL (14.0-18.0); IMM GRAN% 0.6 % (0.0-0.5); LYMPH# 2.72 X1000 (1.2-3.4); LYMPH% 16.6 % (20.5-51.1); MCH 32.9 PG (27-31); MCHC 31.6 g/dL (33-37); MCV 104.2 FL (81-99); MONO# 1.52 X1000 (0.11-0.59); MONO% 9.3 % (1.7-9.3); MPV 10.6 FL (7.4-10.4); NEUT# 11.89 X1000 (1.4-6.5); NEUT% 72.7 % (42.2-75.2); PLT 415 X1000 (130-400); RDW 19.8 % (11.5-14.5); WBC 16.37 X1000 (4.8-10.8)
[2018-11-24 05:55] LABS: AGAP 11; BUN 31 mg/dL (8-22); CALCIUM 8.2 mg/dL (8.8-10.2); CHLORIDE 111 mmol/L (98-107); COSMO 295; CREATININE 0.7 mg/dL (0.7-1.2); ESTIMATED GFR > 60; GLUCOSE 163 mg/dL (70-104); SODIUM 143 mmol/L (136-145); TCO2 21 mmol/L (25-35)
[2018-11-24] MEDS: HUMALOG SUBQ SCH ×4 (05:59→20:03)
--- NOTE | 2018-11-24 06:56 | INFECTIOUS DISEASE PROGRESS NO ---
DATE: 11/24/2018 PRESENT ILLNESS: The patient has a methicillin-resistant Staphylococcus aureus bacteremia. The bacteremia could have arisen from one of the wounds the patient has on both of his legs. The patient's defibrillator and Carroll rods may have become infected hematogenously. Yesterday, the patient had a transesophageal echocardiogram and no vegetation was seen. Therefore, I doubt the patient has endocarditis. MEDICATIONS: This is the 4th day of treatment with daptomycin. PHYSICAL EXAMINATION: Vital Signs: Temperature is 97.9 degrees, pulse 68, respirations 22, blood pressure 175/76, patient is 154 pounds. General: This is an ill-appearing, delirious, middle- aged male. He is in no acute distress. Head, Eyes, Ears, Nose, and Throat: No drainage noted from the nose or ears. He did not track with his eyes today. There was not any erythema on his face. Neck: No stiffness. Lungs: Clear to auscultation. Cardiovascular: Heart rate is regular. Thorax: The patient has a pacemaker and it may be a combination pacemaker and defibrillator in her left chest. The site is not swollen or erythematous. Abdomen: Soft and nontender. Neurologic: The patient is delirious. He did not follow requests to move his extremities. He does not have a tremor but occasionally he throws his arms around and turns from side to side. The arms and legs are not erythematous or edematous. LAB AND X-RAY: A transesophageal echocardiogram showed no vegetations. CBC shows a white count of 16,370, hemoglobin 10.2, and platelet count 415,000. Creatinine is 0.7. GFR is greater than 60. The patient had methicillin-resistant Staphylococcus aureus positive blood cultures. Repeat blood cultures are sterile. ASSESSMENT AND PLAN: The patient has methicillin-resistant Staphylococcus aureus bacteremia with possible involvement of his pacemaker and Carroll rods. My plan is to treat the patient for a total of 6 weeks. COMORBIDITIES: The patient had a subarachnoid hemorrhage. He has a pacemaker and Carroll rods in place. The patient has Mujyzes-Bdkhc-Kihnv disease. cc: Sanjiv De Souza MD
[2018-11-24] MEDS: CUBICIN 500 MG in NS 100 ML IV SCH (09:02)
[2018-11-24] MEDS: ASPIRIN PR SCH (09:02)
[2018-11-24] MEDS: PROTONIX IV SCH ×2 (09:02→19:43)
[2018-11-24] MEDS: CELEXA PO SCH (09:03)
[2018-11-24] MEDS: LACTULOSE PO SCH ×2 (09:04→20:03)
[2018-11-24] MEDS: MIRALAX PO SCH (09:04)
[2018-11-24] MEDS: THERA M PLUS PO SCH (09:04)
[2018-11-24] MEDS: NORVASC PO SCH (09:04)
[2018-11-24] MEDS: SANTYL OINT TOP SCH (09:04)
[2018-11-24] MEDS: DULCOLAX PR SCH ×2 (09:52→20:03)
[2018-11-24] MEDS: HEPARIN SUBQ SCH ×2 (09:52→20:03)
--- NOTE | 2018-11-24 09:53 | PROGRESS NOTE ---
DATE: 11/24/2018 SUBJECTIVE: The patient is resting comfortably in bed. He is aphasic. OBJECTIVE: Vital Signs: Temperature 99 degrees, blood pressure 163/66, heart rate 81, respirations 16, O2 saturation is 98% on 2 L nasal cannula. Input 1.9 L, output 925. General: This is a chronically ill-appearing, elderly male lying in bed in no acute distress. Head: Normocephalic and atraumatic. Heart: S1, S2 normal. Regular rate and rhythm. Lungs: Equal air entry bilaterally. No wheezing. No rales. No rhonchi. Abdomen: Positive bowel sounds. Soft, nontender, nondistended. Extremities: No edema. No cyanosis. Neurologic: The patient is aphasic. The right upper extremity is flaccid. Labs: White blood cell count 16, hemoglobin 10, hematocrit 32, platelets 415, 000. Sodium 143, potassium 4, chloride 111, CO2 21, BUN 31, creatinine 0.7, glucose 163, calcium 8.2. CK 211. ASSESSMENT AND PLAN: 1. Left temporaloccipital infarction. Continue with supportive care. Speech therapy has been consulted to do a swallow evaluation. Occupational therapy and physical therapy are also following. Continue with aspirin. 2. Bacteremia secondary to methicillin-resistant Staphylococcus aureus. Continue with antibiotic therapy as directed by Dr. De Souza. 3. Severe protein calorie malnutrition. The patient is currently on Clinimix plus lipids. The patient will need a swallow evaluation. If he fails, we will likely after place a nasogastric tube for nutrition. 4. Leukocytosis. Slowly improving. Continue with intravenous antibiotic therapy. 5. Anemia. Stable. 6. Diabetes mellitus type 2. Continue with sliding scale insulin. 7. Gastrointestinal prophylaxis. Continue on intravenous Protonix. 8. Deep vein thrombosis prophylaxis. We will start the patient on heparin. cc: Nori Molina MD [facility]
[2018-11-24] MEDS: CLINIMIX E 4.25%-5% SOLUTION 1,000 ML IV SCH (11:32)
--- NOTE | 2018-11-24 13:28 | EKG Report ---
Test Performed on : 11/24/2018 1:07:30 PM Test Reason : afib Blood Pressure : / mmHG Vent. Rate : 090 BPM Atrial Rate : 468 BPM P-R Int : 000 ms QRS Dur : 168 ms QT Int : 492 ms P-R-T Axes : 000 -68 100 degrees QTc Int : 601 ms Atrial flutter. with frequent Abnormal ECG When compared with ECG of 18-NOV-2018 00:43, premature ventricular complexes. are now present premature supraventricular complexes. are no longer present Confirmed by Moiz BARNEY, Bull Montaño ([id number]) on 11/25/2018 6:37:22 AM
--- NOTE | 2018-11-24 17:23 | PROGRESS NOTE ---
DATE: 11/24/2018 SUBJECTIVE: No major overnight events. OBJECTIVE: T-max is 99.9, currently afebrile. Blood pressure is 160s to 180s systolic. Pulse 60s. Mr. Duckworth is supine in bed. He is resting with eyes closed. He alerts more easily today and opens his eyes to voice. He regards and drifts back to sleep. He does not verbalize. He does not follow commands. His pupils are equal and reactive. Gaze is conjugate. Seems to have full lateral eye movements and tracks me across the room. His blinks to threat are somewhat inconsistent bilaterally, though this seems to be more prominent on the right. The remainder of the exam is unchanged from yesterday. DIAGNOSTIC DATA: White count downtrending, 16 today. BUN is 31, creatinine 0.7, blood sugar 130s to 180s. ASSESSMENT AND PLAN: 1. Left temporo-occipital ischemic infarct with a right hemiparesis and aphasia. 2. Methicillin-resistant Staphylococcus aureus bacteremia and sepsis. 3. Atrial fibrillation previously on chronic Coumadin therapy which was held due to supratherapeutic INR of 13 this admission. 4. Alcoholism with recurrent falls. I would continue with supportive therapy as you are doing and continue daily aspirin therapy at least for now. While he has a long-term indication for anticoagulation for secondary stroke prevention, I continue to worry about his risk of bleeding, and I think the risk is high. Continue to allow for permissive hypertension and avoid hypotension over the next day or so. cc: Zulema Peace MD MTDD
[2018-11-24] MEDS: LIPOSYN 20% 250 ML IV SCH (17:52)
[2018-11-24] MEDS: THIAMINE 100 MG in NS 50 ML IV SCH (20:03)
[2018-11-25] MEDS: CLINIMIX E 4.25%-5% SOLUTION 1,000 ML IV SCH ×2 (00:13→13:52)
[2018-11-25] MEDS: DUONEB (A & A) INH SCH ×6 (04:17→23:26)
[2018-11-25 05:57] LABS: BASO# 0.06 X1000 (0.0-0.2); BASO% 0.4 % (0.0-0.8); EOS# 0.17 X1000 (0.0-0.7); HEMATOCRIT 32.4 % (42.0-52.0); HEMOGLOBIN 10.2 g/dL (14.0-18.0); IMM GRAN# 0.06 X1000 (0.0-0.04); IMM GRAN% 0.4 % (0.0-0.5); LYMPH# 2.81 X1000 (1.2-3.4); LYMPH% 16.6 % (20.5-51.1); MCH 33.1 PG (27-31); MCHC 31.5 g/dL (33-37); MCV 105.2 FL (81-99); MONO# 1.65 X1000 (0.11-0.59); MONO% 9.7 % (1.7-9.3); MPV 11.1 FL (7.4-10.4); NEUT# 12.19 X1000 (1.4-6.5); NEUT% 71.9 % (42.2-75.2); PLT 399 X1000 (130-400); RBC 3.08 XMIL (4.7-6.1); RDW 19.9 % (11.5-14.5); WBC 16.94 X1000 (4.8-10.8)
[2018-11-25] MEDS: HUMALOG SUBQ SCH ×4 (06:01→22:55)
[2018-11-25 06:21] LABS: CHLORIDE 110 mmol/L (98-107); SODIUM 141 mmol/L (136-145); TCO2 21 mmol/L (25-35)
[2018-11-25 06:22] LABS: ALB/GLOB RATIO 0.9; ALBUMIN 2.5 g/dL (3.5-5.0); ALKALINE PHOSPHATASE 100 U/L (32-122); BUN 33 mg/dL (8-22); COSMO 217; CREATININE 0.7 mg/dL (0.7-1.2); ESTIMATED GFR > 60; GLUCOSE 153 mg/dL (70-104); GOT 42 U/L (10-34); GPT 22 U/L (10-44); TOTAL BILIRUBIN 1.14 mg/dL (0.20-1.00); TOTAL PROTEIN 5.4 g/dL (6.3-8.3)
--- NOTE | 2018-11-25 06:57 | INFECTIOUS DISEASE PROGRESS NO ---
DATE: 11/25/2018 PRESENT ILLNESS: The patient has a methicillin-resistant Staphylococcus aureus bacteremia which could have hematogenously infected his pacemaker and/or Carroll rods. A transesophageal echocardiogram found no vegetation and, therefore, I doubt the patient has endocarditis. MEDICATIONS: This is the 5th day of treatment with daptomycin. PHYSICAL EXAMINATION: Vital Signs: Temperature is 98.7 degrees, pulse 68, respirations 19, blood pressure 180/81. General: This is an ill-appearing, delirious, middle-aged male. He is in no acute distress. Head, Eyes, Ears, Nose, and Throat: There is no drainage from the nose or ears. He does not have any facial erythema or swelling. Neck: No meningismus. Lungs: Clear to auscultation. Cardiovascular: Heart rate is regular. Thorax: The patient has a pacemaker present on the left side. The pacemaker site is not erythematous and there is not swelling around the pacemaker site. Abdomen: Soft and nontender. Neurologic: The patient today is awake. He thrashes around in bed. I felt that one time he tracked with his eyes. The patient does not have a tremor. LAB AND X-RAY: The transesophageal echocardiogram showed no vegetations. CBC shows a white count of 16,440, hemoglobin 10.2, and platelet count 399,000. Creatinine is 0.7. GFR is greater than 60. The patient's CK is 211. The patient's liver function studies are normal except for a slight elevation of the AST at 42. ASSESSMENT AND PLAN: The patient has methicillin-resistant Staphylococcus aureus bacteremia with possible involvement hematogenously of his pacemaker and/or Carroll rods. I plan to treat the patient for a total of 6 weeks with daptomycin. COMORBIDITIES: Subarachnoid hemorrhage, pacemaker and Carroll rods in place, Charcot-Tyesha- Tooth disease. cc: Sanjiv De Souza MD
[2018-11-25 07:02] LABS: AGAP 10; POTASSIUM 2.7 mmol/L (3.5-5.1)
[2018-11-25] MEDS ORDERED: POTASSIUM CHLORIDE 60 MEQ in NS 500 ML IV ONE (07:05)
[2018-11-25 08:11] LABS: MAGNESIUM 1.8 mg/dL (1.5-2.7); PHOSPHORUS 3.5 mg/dL (2.7-4.5)
[2018-11-25] MEDS: CELEXA PO SCH (08:14)
[2018-11-25] MEDS: NORVASC PO SCH (08:15)
[2018-11-25] MEDS: LACTULOSE PO SCH ×2 (08:15→21:57)
[2018-11-25] MEDS: THERA M PLUS PO SCH (08:15)
[2018-11-25] MEDS: MIRALAX PO SCH (08:16)
[2018-11-25] MEDS: CUBICIN 500 MG in NS 100 ML IV SCH (08:23)
[2018-11-25] MEDS: HEPARIN SUBQ SCH ×2 (08:24→21:57)
[2018-11-25] MEDS: ASPIRIN PR SCH (08:24)
[2018-11-25] MEDS: SANTYL OINT TOP SCH (08:24)
[2018-11-25] MEDS: DULCOLAX PR SCH ×2 (08:24→21:53)
[2018-11-25] MEDS: PROTONIX IV SCH ×2 (08:24→21:57)
--- NOTE | 2018-11-25 12:30 | PROGRESS NOTE ---
DATE: 11/25/2018 SUBJECTIVE: Mr. Duckworth has acute left hemisphere infarction with right hemiparesis and aphasia. He was admitted with MRSA bacteremia. There is history of ethanol abuse and atrial fibrillation, chronically anticoagulated with warfarin. INR was very elevated and warfarin has been held. Approximately 10 days after holding warfarin, he had onset of stroke deficit. OBJECTIVE: Today, he is awake and alert. He seemed briefly attentive, but did not speak to me. He did not follow simple or complicated commands. He did not respond when i called his name more than when i called other names. He used his left arm purposefully. He did not use his right arm. He has a left gaze preference with full extraocular movement noted on passive head turning. Neck continues to be supple without meningismus. IMPRESSION: 1. Acute dominant left hemisphere infarction. 2. Stable right hemiparesis. 3. Dysphasia. I do not have anything to add to Dr. Peace's suggestions. Would continue aspirin, continue low- dose heparin for DVT prophylaxis, continue speech therapy and physical therapy. I agree the risks outweigh potential benefit for resuming full anticoagulation at this point. Thanks for asking Neurology to see Mr. Duckworth. cc: Serge Melissa III, MD [facility]
[2018-11-25] MEDS: LIPOSYN 20% 250 ML IV SCH (13:52)
--- NOTE | 2018-11-25 16:03 | PROGRESS NOTE ---
DATE: 11/25/2018 SUBJECTIVE: The patient continues awake, but noncommunicative. Right-sided hemiparesis remains. OBJECTIVE: Vital Signs: Blood pressure 177/80, heart rate 69, oxygen saturation 98% on room air. Neck: There is no significant jugular venous distention. Chest: Clear to auscultation bilaterally. Cardiac Exam: Reveals an irregular rate and rhythm without appreciable murmur or gallop. Extremities: Without edema. Neurologic: Exam remarkable for right-sided hemiparesis. LABORATORY DATA: Lab data includes a white blood cell count of 16.94, hematocrit 32.4, hemoglobin 10.2. Sodium 141, potassium 2.7, chloride 110, carbon dioxide 21. BUN 33, creatinine 0.7, glucose 153, albumin 2.5. IMPRESSION: 1. Status post left temporal occipital ischemic infarct with right hemiparesis and aphasia. This apparently occurred over this past weekend. 2. Recent encephalopathy of unclear etiology. 3. Methicillin-resistant Staphylococcus aureus bacteremia. Transesophageal echocardiography reports no vegetations and no evidence of intracardiac thrombus. 4. Atrial fibrillation. Patient has been on chronic Coumadin therapy which was recently held due to supratherapeutic INR with evidence of bleeding at the outset of his current admission. 5. Status post permanent pacemaker. 6. Alcoholism which has been a major issue. 7. Diabetes mellitus type 2. 8. Hypertension. 9. Traumatic head injury several months ago. Patient reportedly hospitalized in [place] with subarachnoid hemorrhage. RECOMMENDATIONS: 1. Agree with present management with anti-platelet agent aspirin. 2. I agree that given his history that warfarin may be hazardous and have potential for recurrent bleeding complications. 3. Agree with supplementing potassium. cc: Matt Sanchez MD
--- NOTE | 2018-11-25 18:55 | PROGRESS NOTE ---
DATE: 11/25/2018 SUBJECTIVE: The patient is resting comfortably in bed. He is nonverbal. No acute events noted overnight. OBJECTIVE: Vital Signs: Temperature 98.4, blood pressure 172/88, heart rate 80 , respirations 23, O2 saturations 94% on room air. General: This is a chronically ill-appearing elderly male lying in bed in no acute distress. Heart: S1, S2 normal. Regular rate and rhythm. Lungs: Equal air entry bilaterally. No crackles. Abdomen: Positive bowel sounds. Soft, nontender, nondistended. Extremities: No edema, no cyanosis. Neurologic: The patient is awake, but aphasic. His right arm is flaccid. LABS: White blood cell count 16, hemoglobin 10, hematocrit 32, platelets 399. Sodium 141, potassium 2.7, chloride 110, CO2 of 21, BUN 33, creatinine 0.7, glucose 153, magnesium 1.8, phosphorus 3.5, AST 42, ALT 22, alkaline phosphatase 100. ASSESSMENT AND PLAN: 1. Left temporal occipital infarction. The BETH was negative for thrombus or vegetation. Continue with supportive care. Continue with occupational therapy and physical therapy. The patient is on aspirin. The patient is on daptomycin so the lipitor is on hold. 2. Bacteremia secondary to MRSA. Continue with antibiotic therapy as directed by Dr. De Souza. 3. Severe protein calorie malnutrition. The patient remains on Clinimix and lipids. We are currently awaiting a swallow evaluation. 4. Leukocytosis. Unchanged. Continue with antibiotic therapy. 5. Diabetes mellitus type 2. Continue on sliding scale insulin. 6. Anemia. Stable. 7. Hypertension. Continue to allow permissive hypertension. 8. Gastrointestinal prophylaxis. Continue on Protonix. 9. Deep vein thrombosis prophylaxis. Continue on heparin. 10. Disposition. The patient will be discharged to long-term acute care (LTAC) once insurance approval has been obtained. cc: Nori Molina MD [facility]
[2018-11-25] MEDS: THIAMINE 100 MG in NS 50 ML IV SCH (21:56)
[2018-11-25] MEDS: SODIUM CHLORIDE 0.9% INJ SCH (21:57)
[2018-11-26] MEDS: CLINIMIX E 4.25%-5% SOLUTION 1,000 ML IV SCH ×3 (03:21→17:23)
[2018-11-26] MEDS: DUONEB (A & A) INH SCH ×6 (03:34→23:10)
[2018-11-26 05:57] LABS: BASO# 0.06 X1000 (0.0-0.2); BASO% 0.3 % (0.0-0.8); EOS# 0.04 X1000 (0.0-0.7); EOS% 0.2 % (0.0-10.0); HEMATOCRIT 31.9 % (42.0-52.0); HEMOGLOBIN 10.1 g/dL (14.0-18.0); IMM GRAN# 0.09 X1000 (0.0-0.04); IMM GRAN% 0.4 % (0.0-0.5); LYMPH# 2.44 X1000 (1.2-3.4); LYMPH% 11.4 % (20.5-51.1); MCH 33.3 PG (27-31); MCHC 31.7 g/dL (33-37); MCV 105.3 FL (81-99); MONO# 2.17 X1000 (0.11-0.59); MONO% 10.2 % (1.7-9.3); MPV 11.2 FL (7.4-10.4); NEUT# 16.56 X1000 (1.4-6.5); NEUT% 77.5 % (42.2-75.2); PLT 422 X1000 (130-400); RBC 3.03 XMIL (4.7-6.1); RDW 19.7 % (11.5-14.5); WBC 21.36 X1000 (4.8-10.8)
[2018-11-26 06:13] LABS: AGAP 4; ALB/GLOB RATIO 0.7; ALBUMIN 2.3 g/dL (3.5-5.0); ALKALINE PHOSPHATASE 101 U/L (32-122); BUN 40 mg/dL (8-22); CHLORIDE 111 mmol/L (98-107); COSMO 289; CREATININE 0.9 mg/dL (0.7-1.2); ESTIMATED GFR > 60; GLUCOSE 135 mg/dL (70-104); GOT 46 U/L (10-34); GPT 22 U/L (10-44); POTASSIUM 5.7 mmol/L (3.5-5.1); SODIUM 139 mmol/L (136-145); TCO2 24 mmol/L (25-35); TOTAL PROTEIN 5.4 g/dL (6.3-8.3)
[2018-11-26] MEDS ORDERED: D50W SYRINGE IV ONE (06:17)
[2018-11-26] MEDS ORDERED: HUMULIN R IV ONE (06:17)
[2018-11-26] MEDS ORDERED: ALBUTEROL 0.5% INH CONC FOR HYPERKALEMIA INH ONE (06:17)
[2018-11-26] MEDS: HUMALOG SUBQ SCH ×4 (06:42→21:54)
[2018-11-26 07:04] LABS: LYMPHS 11 % (21-51); MONO 11 % (1-9); SEGS 78 % (42-75)
[2018-11-26 08:14] LABS: ALLEN TEST YES; BE -3.4 mmoll (-3.0-3.0); BLOOD TYPE ARTERIAL; HCO3-(ACT) 22.2 mmoll (20.0-26.0); METHB 0.9 % (0.0-1.5); O2(CT) 12.6 mL/dL (15.0-23.0); O2HB 90.2 % (95.0-99.0); PCO2(98.6) 23 mmHg (35-45); PO2(98.6) 57 mmHg (60-100); SAMPLE BLOOD; SAO2 93.5 % (95.0-100.0); THB 9.9 g/dL (11.5-17.4); pH(98.6) 7.51 (7.35-7.45)
[2018-11-26 08:15] LABS: MODALITY ROOM AIR
--- NOTE | 2018-11-26 08:52 | Diag Imaging Result Doc PS360 ---
CHEST-PORTABLE - 11/26/2018 INDICATION: Increased SOB COMPARISON: 11/23/2018 FINDINGS: Lung volumes are severely low. There is stable complete opacification/collapse of the left lower lobe. There is worsening small bibasilar pleural effusion. No definite pulmonary edema. Stable pacemaker. Stable cardiomegaly. IMPRESSION: Slight worsening in small pleural effusions. Other findings are stable from prior. Electronically signed by Tru Vides 11/26/2018 8:50 AM
--- NOTE | 2018-11-26 09:46 | INFECTIOUS DISEASE PROGRESS NO ---
DATE: 11/26/2018 PRESENT ILLNESS: The patient has a methicillin-resistant Staphylococcus aureus bacteremia, the exact origin of which is uncertain to me. It may hematogenously have infected the patient's pacemaker and/or Carroll rods in his spine. A transesophageal echocardiogram found no vegetation and, therefore, it does not appear that the patient has endocarditis. Today, the patient is breathing much faster and his white count is elevated. MEDICATIONS: This is the 6th day of treatment with daptomycin. PHYSICAL EXAMINATION: Vital Signs: Temperature is 99.1 degrees, pulse 70, respirations 40, blood pressure 161/79. General: This is an ill-appearing, middle-aged male. He is breathing quite rapidly. Head, Eyes, Ears, Nose, and Throat: No drainage is noted from the nose or ears. Neck: No meningismus. Lungs: Clear to auscultation. Cardiovascular: Heart rate is regular. Abdomen: Soft and nontender. Thorax: The patient has a pacemaker on the left side of his chest. The site is not swollen, erythematous, or draining. Neurologic: The patient did not follow requests to move his extremities. He did not track with his eyes. Integument: No rash noted. LAB AND X-RAY: CK is 211. AST is 46. Creatinine is 0.9. GFR is greater than 60. White count is 21,360, hemoglobin 10.1, and platelet count 422,000. Arterial blood gases show a pH of 7.51, a pO2 of 57, and a pCO2 of 23. ASSESSMENT AND PLAN: The patient has a methicillin-resistant Staphylococcus aureus bacteremia which may have hematogenously infected the patient's pacemaker and/or Carroll rods in his spine. I am going to continue daptomycin pending further results. I have also started the patient on cefepime because the patient did look somewhat toxic to me. Blood and urine cultures and a chest x-ray have been ordered. COMORBIDITIES: Subarachnoid hemorrhage, pacemaker, Carroll rods, Charcot- Tyesha-Tooth disease. cc: Sanjiv De Souza MD [facility]
[2018-11-26] MEDS ORDERED: LASIX IV ONE ×2 (09:53→11:35)
[2018-11-26] MEDS: HEPARIN SUBQ SCH ×2 (10:10→21:53)
[2018-11-26] MEDS: PROTONIX IV SCH ×2 (10:10→21:53)
[2018-11-26] MEDS: ASPIRIN PR SCH (10:10)
[2018-11-26] MEDS: MAXIPIME 2 GM in NS 100 ML IV SCH ×2 (10:10→21:53)
[2018-11-26] MEDS: DULCOLAX PR SCH ×2 (10:10→21:53)
[2018-11-26] MEDS: MIRALAX PO SCH (10:13)
[2018-11-26] MEDS: THERA M PLUS PO SCH (10:13)
[2018-11-26] MEDS: LACTULOSE PO SCH ×2 (10:13→21:54)
[2018-11-26] MEDS: CELEXA PO SCH (10:13)
[2018-11-26] MEDS: SANTYL OINT TOP SCH (10:13)
[2018-11-26] MEDS: NORVASC PO SCH (10:13)
[2018-11-26] MEDS: CUBICIN 500 MG in NS 100 ML IV SCH (10:15)
--- NOTE | 2018-11-26 10:22 | PROGRESS NOTE ---
DATE: 11/26/2018 SUBJECTIVE: The patient is resting comfortably in bed. He remains aphasic. He is tachypneic today. OBJECTIVE: Vital Signs: Temperature 99 degrees, blood pressure 161/79, heart rate 70, respirations 16, O2 saturation is 99% on room air. Urine output 1.3 L. General : This is a chronically ill-appearing, elderly male lying in bed, in no acute distress. Heart: S1, S2 normal. Regular rate and rhythm. Lungs: Equal air entry bilaterally. No wheezing. No rales. No rhonchi. Abdomen: Positive bowel sounds. Soft, nontender, nondistended. Extremities: Trace pedal edema. No cyanosis. Neurologic: The patient is awake but aphasic. His right arm is flaccid. Labs: White blood cell count 21, hemoglobin 10, hematocrit 31, platelets 422, 000. Sodium 139, potassium 5.7, chloride 111, CO2 24, BUN 40, creatinine 0.9, glucose 135, albumin 2.3. AST 46, ALT 22, alkaline phosphatase 101. Chest x-ray shows slight worsening in the small pleural effusions. ASSESSMENT AND PLAN: 1. Left temporooccipital infarction. Continue with supportive care. 2. Bacteremia secondary to methicillin-resistant Staphylococcus aureus. Continue with the current antibiotic regimen as directed by Dr. De Souza. 3. Hyperkalemia. We will treat the elevated potassium and repeat the renal profile this afternoon. 4. Severe protein calorie malnutrition. The patient has failed the swallow evaluation. We will consult gastroenterology for percutaneous endoscopic gastrostomy tube placement. 5. Leukocytosis. Worse today. Continue with antibiotic therapy as directed by Dr. De Souza. 6. Diabetes mellitus type 2. Continue on sliding scale insulin. 7. Anemia. Stable. 8. Gastrointestinal prophylaxis. Continue on Protonix. 9. Deep vein thrombosis prophylaxis. Continue on heparin. cc: MD SETH Daley
--- NOTE | 2018-11-26 11:28 | PROGRESS NOTE ---
DATE: 11/26/2018 OBJECTIVE: Mr. Duckworth continues awake and alert. He is not communicating. He did not move his right arm purposefully. I saw him move his right leg. He used his left arm purposefully. He continues with left gaze but eyes moved to the midline more spontaneously today than yesterday. ASSESSMENT AND PLAN: I had lengthy discussion with daughter at the bedside regarding poor prognosis for recovery from stroke. He was not walking prior to this event. There may have been some cognitive impairment at baseline. I do not have any urgent suggestion today. Only time will tell. Thanks for asking Neurology to see Mr. Duckworth. cc: Serge Melissa III, MD MTDD
[2018-11-26] MEDS: ALBUMIN 25% IV SCH (12:46)
--- NOTE | 2018-11-26 13:07 | GASTROENTEROLOGY CONSULTATION ---
DATE: 11/26/2018 ADDENDUM REPORT I was able to reach the patient's daughter Jeanette Duckworth at [phone], and we discussed the risks, benefits, indications, and alternatives the PEG tube placement. The patient's daughter acknowledges and agreed to proceed with the procedure so we will try to do it for tomorrow with Dr. Butler. The patient's family will call us with any further questions. cc: MD Nilesh Amin MD
--- NOTE | 2018-11-26 13:14 | GASTROENTEROLOGY CONSULTATION ---
DATE: 11/26/2018 ATTENDING PHYSICIAN: Dr. Molina. PRIMARY CARE DOCTOR: Dr. Nilesh Flower. REASON FOR CONSULTATION: Evaluation of PEG tube placement. HISTORY OF PRESENT ILLNESS: Mr. Duckworth is a 58-year-old male, who was admitted on 11/09/2018. He initially was admitted with a soft tissue injury to the right arm, with hematoma and elevated INR, but during the hospital course on 11/21/2018 he was noted to have ischemic infarct within the left temporo-occipital region. Since then he has had right-sided weakness and positive speech. Over the course of the hospital stay he had decreased p.o. intake, and he has oropharyngeal dysphagia, and Gastroenterology was consulted for further intervention including PEG tube placement. The history is obtained from the records from the patient's nurse. The patient could not provide me any information because he has aphasia. PAST MEDICAL HISTORY: Alcoholism. Small, traumatic subarachnoid hemorrhage in July 2018. Atrial fibrillation. Pacemaker. Diabetes. Hypertension. Spine surgery. Charcot Tyesha tooth disease. Peripheral vascular disease. PAST SURGICAL HISTORY: Pacemaker placement. Spine surgery. Possible AICD placement. SOCIAL HISTORY: He is a smoker of 1 pack a day. He drinks whiskey every day. Prior to admission, he had his last drink. No history of illicit drug abuse. ALLERGIES: No known drug allergies. REVIEW OF SYSTEMS: A review of systems cannot be obtained. FAMILY HISTORY: Noncontributory. MEDICATIONS: Medications in the hospital include heparin 5000 units q.12 hours, albumin 50 g IV daily, albuterol/ipratropium every 4 hours, Norvasc 5 mg once daily, aspirin 300 mg per rectum daily, bisacodyl 10 mg per rectum b.i.d., Celexa 20 mg p.o. daily, Clinimix 75 per hour, collagenase Clostridium topical daily, daptomycin once daily, Apresoline 25 mg IV q.6 hours, Humalog sliding scale, lactulose 30 mL p.o. b.i.d., fat emulsion 10 mL/h, cefepime IV q.12 hours, multivitamin once daily, Protonix IV b.i.d., MiraLAX 17 g once daily, and thiamine 100 mg IV daily. He is currently NPO. PHYSICAL EXAMINATION: Vital Signs: Temperature of 99.1 degrees, pulse of 70, respiratory rate of 30, blood pressure 161/79, saturating 99% on room air. Body weight of 137 pounds 4.8 ounces. BMI 20.8 kg. General: Thinly built, lying in bed, in no acute distress. HEENT: Pale conjunctiva. No icterus. Neck: Supple. Abdomen: Soft, nondistended. No guarding. No rebound. Extremities: He uses left arm spontaneously. Neurologic: He is not communicating, he has aphasia. His right arm is flaccid. DIAGNOSTIC DATA: Hemoglobin and hematocrit is 10.1 and 31.9, white count of 21.36, platelet count of 422,000. ABG showing 7.51, pCO2 23, pO2 57 and this is on room air. Sodium 139, potassium 5.7, chloride 100, bicarb of 24, anion gap of 4, BUN of 40, creatinine 0.9, glucose of 135. Calcium is 8. Phosphorus 4. Magnesium 2.0. Total bilirubin is 1, AST 46, ALT 22, alkaline phosphatase 101, total protein 5.4, albumin of 2.3. ProBNP is more than 35,000. Blood cultures x2 were drawn today, which is currently pending. His stool C diff toxin and antigen from 11/22 were negative. IMPRESSION AND PLAN: 1. Left temporo-occipital CVA. He has been monitored by the neurology team. 2. Aphasia as a part of CVA. 3. Dysphagia, likely secondary to CVA. We will follow up on the results of swallow evaluation. According to the last record the patient failed swallow evaluation, and he is on IV Clinimix. 4. Malnutrition. Continue IV Clinimix and IV lipid infusion. 5. BETH showed no vegetation, but stroke workup showed 50% stenosis of left internal carotid artery. 6. GI. PPIs. He has a history of constipation. He is on Dulcolax per rectum b.i.d. 7. The patient has a high white count and is slightly tachypneic. We will have to evaluate in the morning to decide about potential PEG tube placement tomorrow. I have discussed that with the patient's nursing staff, about the risks, benefits, indications and alternatives of the procedure. 8. We will also try to reach the family. I will try to call the significant other's contact on the chart and try to get the consent for the procedure tomorrow. 9. The above plan was discussed with the patient and the nursing staff, and all questions were answered. cc: MD Nori Amin MD
[2018-11-26] MEDS: LIPOSYN 20% 250 ML IV SCH (14:26)
[2018-11-26 15:51] LABS: AGAP 7; ALBUMIN 2.9 g/dL (3.5-5.0); BUN 42 mg/dL (8-22); CALCIUM 8.4 mg/dL (8.8-10.2); CHLORIDE 107 mmol/L (98-107); COSMO 286; ESTIMATED GFR > 60; GLUCOSE 134 mg/dL (70-104); POTASSIUM 5.1 mmol/L (3.5-5.1); SODIUM 137 mmol/L (136-145); TCO2 23 mmol/L (25-35)
[2018-11-26] MEDS: DILAUDID IV PRN (17:24)
[2018-11-26] MEDS: SODIUM CHLORIDE 0.9% INJ SCH (21:52)
[2018-11-26] MEDS: THIAMINE 100 MG in NS 50 ML IV SCH (21:53)
[2018-11-27] MEDS: DUONEB (A & A) INH SCH ×6 (03:37→23:19)
[2018-11-27] MEDS: CLINIMIX E 4.25%-5% SOLUTION 1,000 ML IV SCH (03:39)
[2018-11-27 05:55] LABS: BASO# 0.05 X1000 (0.0-0.2); BASO% 0.2 % (0.0-0.8); EOS# 0.08 X1000 (0.0-0.7); EOS% 0.3 % (0.0-10.0); HEMATOCRIT 29.7 % (42.0-52.0); HEMOGLOBIN 9.3 g/dL (14.0-18.0); IMM GRAN# 0.15 X1000 (0.0-0.04); IMM GRAN% 0.6 % (0.0-0.5); LYMPH# 2.08 X1000 (1.2-3.4); LYMPH% 8.2 % (20.5-51.1); MCH 33.1 PG (27-31); MCHC 31.3 g/dL (33-37); MCV 105.7 FL (81-99); MONO# 2.56 X1000 (0.11-0.59); MPV 11.3 FL (7.4-10.4); NEUT# 20.56 X1000 (1.4-6.5); NEUT% 80.7 % (42.2-75.2); PLT 380 X1000 (130-400); RBC 2.81 XMIL (4.7-6.1); RDW 19.2 % (11.5-14.5); WBC 25.48 X1000 (4.8-10.8)
[2018-11-27 06:05] LABS: AGAP 10; ALB/GLOB RATIO 0.9; ALBUMIN 2.6 g/dL (3.5-5.0); ALKALINE PHOSPHATASE 93 U/L (32-122); BUN 45 mg/dL (8-22); CALCIUM 8.3 mg/dL (8.8-10.2); CHLORIDE 109 mmol/L (98-107); COSMO 291; ESTIMATED GFR > 60; GLUCOSE 125 mg/dL (70-104); GOT 40 U/L (10-34); GPT 18 U/L (10-44); POTASSIUM 5.2 mmol/L (3.5-5.1); SODIUM 139 mmol/L (136-145); TCO2 20 mmol/L (25-35); TOTAL BILIRUBIN 0.87 mg/dL (0.20-1.00); TOTAL PROTEIN 5.6 g/dL (6.3-8.3)
[2018-11-27] MEDS: HUMALOG SUBQ SCH ×4 (06:16→20:46)
--- NOTE | 2018-11-27 07:21 | Diag Imaging Result Doc PS360 ---
EXAM: CHEST-PORTABLE 11/27/2018 HISTORY: dyspnea TECHNIQUE: AP portable at 0637 COMMENT: There is increasing alveolar opacity in the left lower lobe. There continues to be hazy opacity over the perihilar and lower lung field on the right. The heart size is slightly enlarged. IMPRESSION: Worsened pulmonary edema versus pneumonia in the left lower lobe. Electronically signed by Jem Hogue 11/27/2018 7:19 AM
[2018-11-27] MEDS ORDERED: LASIX IV ONE ×2 (07:55→11:50)
[2018-11-27] MEDS ORDERED: VANCOMYCIN IV PER PHARMACY MISC SCH (08:00)
--- NOTE | 2018-11-27 08:52 | INFECTIOUS DISEASE PROGRESS NO ---
DATE: 11/27/2018 PRESENT ILLNESS: The patient has methicillin-resistant Staphylococcus aureus bacteremia and it may have caused infection in the patient's pacemaker and/or Carroll rods in his spine. The patient's chest x-ray shows that there could be a left lower lobe pneumonia. Yesterday, I started the patient on cefepime and today I have discontinued daptomycin because it does not penetrate into the lung well, and instead I have ordered the patient to have vancomycin, which will treat his methicillin-resistant Staph aureus infection and it also does get good concentration in the lungs, so if the patient has methicillin-resistant Staph aureus pneumonia, the vancomycin should be able to clear it. MEDICATION: The patient currently is on daptomycin and cefepime. PHYSICAL EXAMINATION: Vital Signs: Temperature 98.8 degrees, pulse 66, respirations 24, blood pressure 180/70. General: This is an ill-appearing, middle-aged male. He seems to be in a delirium. Head, eyes, ears, nose, and throat: He is not draining from his nose or ears. I was not able to get a good view of his tongue. Neck: No stiffness. Lungs: Clear to auscultation. Cardiovascular: Heart rate is regular. Abdomen: Soft and nontender. Thorax: The patient has a pacemaker on the left side. The site is not swollen, erythematous, or tender. Neurologic: The patient is lying in bed. He does not follow requests to move his extremities. He tracks for a few seconds with his eyes, but then does not track anymore. LAB AND X-RAY: The patient's CBC shows a white count of 25,480, hemoglobin 9.3 , and platelet count 380,000. Blood and urine cultures are pending. Chest x-ray shows worsening of the left lower lobe opacity. ASSESSMENT AND PLAN: The patient has methicillin-resistant Staphylococcus aureus bacteremia, which may have hematogenously infected the patient's pacemaker and Carroll rods. The patient also has a left lower lobe pneumonia. My plan is to stop daptomycin and start the patient on vancomycin, and continue the patient on cefepime, which was just started yesterday. COMORBIDITIES: Subarachnoid hemorrhage, pacemaker, Jessamine julienne, Charcot- Tyesha-Tooth disease. cc: MD SETH White
[2018-11-27] MEDS ORDERED: NS 250 ML IV ONE (09:35)
[2018-11-27] MEDS: PROTONIX IV SCH ×2 (10:03→20:46)
[2018-11-27] MEDS: MAXIPIME 2 GM in NS 100 ML IV SCH ×3 (10:03→20:45)
[2018-11-27 10:10] LABS: ALLEN TEST YES; BE -2.1 mmoll (-3.0-3.0); BLOOD TYPE ARTERIAL; HCO3-(ACT) 23.2 mmoll (20.0-26.0); METHB 0.9 % (0.0-1.5); O2HB 91.4 % (95.0-99.0); PCO2(98.6) 26 mmHg (35-45); PO2(98.6) 62 mmHg (60-100); SAMPLE BLOOD; SAO2 94.6 % (95.0-100.0); THB 9.3 g/dL (11.5-17.4)
[2018-11-27 10:11] LABS: MODALITY CANNULA
[2018-11-27] MEDS: NORVASC PO SCH (10:17)
[2018-11-27] MEDS: MIRALAX PO SCH (10:18)
[2018-11-27] MEDS: THERA M PLUS PO SCH (10:18)
[2018-11-27] MEDS: DULCOLAX PR SCH ×2 (10:19→20:47)
[2018-11-27] MEDS: LACTULOSE PO SCH ×2 (10:19→20:47)
[2018-11-27] MEDS ORDERED: VANCOMYCIN 2 GM in NS 500 ML IV ONE ×2 (11:00→14:00)
--- NOTE | 2018-11-27 11:55 | Diag Imaging Result Doc PS360 ---
EXAM: CHEST-PORTABLE 11/27/2018 HISTORY: r/o pneumothorax TECHNIQUE: AP portable at 1146 COMMENT: There are bilateral pleural fluid collections. There is hazy opacity in both lower lobes. There is no evidence of pneumothorax. Compared to 11/27/2018 at 0637 there is slightly more pleural fluid on the right. IMPRESSION: Pleural effusions and pulmonary edema. The possibility of pneumonia cannot be excluded. Electronically signed by Jem Hogue 11/27/2018 11:53 AM
[2018-11-27] MEDS ORDERED: ATIVAN IV PRN (12:29)
[2018-11-27] MEDS ORDERED: QUELICIN (DOSE) ONE (12:37)
[2018-11-27] MEDS ORDERED: AMIDATE ONE (12:37)
[2018-11-27] MEDS: MORPHINE IV PRN (12:43)
--- NOTE | 2018-11-27 12:50 | Diag Imaging Result Doc PS360 ---
EXAM: CHEST-PORTABLE HISTORY: intubation TECHNIQUE: Portable supine chest COMPARISON: 11:46 AM FINDINGS: Interval placement of an endotracheal tube. This is in good position with tip located 2 to 3 cm above the charles. Worsening bilateral infiltrates. The heart is not enlarged. IMPRESSION: Endotracheal tube in good position. Electronically signed by Nando Sifuentes 11/27/2018 12:47 PM
--- NOTE | 2018-11-27 12:59 | PROGRESS NOTE ---
DATE: 11/27/2018 Mr. Duckworth has been intubated. There is not much change neurologically. I reviewed the prior scans, and compared findings with the most recent CT. There is clear evidence of progressing accumulation of ischemic change across the hemispheres, much more prominent on the left recently, consistent with recent clinical stroke. In light of his medical problems and current clinical status, I believe prognosis for neurologic recovery remains poor. I discussed that very frankly with the brother in the hallway. I do not have any new suggestion from neurology standpoint today. Thanks for asking us to see Mr. Duckworth. cc: Serge Melissa III, MD MTDCristina
[2018-11-27] MEDS ORDERED: SODIUM CHLORIDE 0.9% 10 ML ONE (13:25)
[2018-11-27] MEDS: CELEXA PO SCH (13:34)
[2018-11-27] MEDS: ALBUMIN 25% IV SCH ×2 (13:34→15:09)
[2018-11-27] MEDS: ASPIRIN PR SCH (13:34)
[2018-11-27] MEDS: SANTYL OINT TOP SCH (13:35)
[2018-11-27] MEDS: HEPARIN SUBQ SCH ×2 (13:35→20:46)
[2018-11-27] MEDS: LIPOSYN 20% 250 ML IV SCH (14:38)
[2018-11-27] MEDS: DIPRIVAN 1% 1,000 MG/100 ML BOTTLE IV SCH (16:09)
--- NOTE | 2018-11-27 16:44 | PROGRESS NOTE ---
DATE: 11/27/2018 SUBJECTIVE: The patient was noted to be in respiratory failure this morning with increased work of breathing and hypoxia. As a result, Anesthesia was called and the patient was intubated. OBJECTIVE: Vital Signs: Temperature 101, blood pressure 157/86, heart rate 75 , respirations 26. O2 sats 100% on the mechanical ventilator. Urine output 2.3 L. General: This is a chronically ill-appearing elderly male currently on the ventilator. HEENT: Head normocephalic, atraumatic. Heart: S1, S2 normal. Tachycardic. Lungs: Coarse breath sounds with crackles bilaterally. Abdomen: Positive bowel sounds. Soft, nontender, nondistended. Extremities: 1+ edema. No cyanosis. Neurologic: The patient is currently sedated. LABS: White blood cell count 25, hemoglobin 9.3, hematocrit 29, platelets 380, 000. Sodium 139, potassium 5.2, chloride 109, CO2 20, BUN 45, creatinine 1, glucose 125, albumin 2.6. Chest x-ray shows worsening pulmonary edema with pneumonia in the left lower lobe. ASSESSMENT AND PLAN: 1. Acute hypoxemic respiratory failure. The patient is now on the mechanical ventilator. We will consult with the seed laboratory assistant for further assistance with ventilator management. The patient's antibiotics have been adjusted by Dr. De Souza. Continue with bronchodilator therapy. Will follow up on the repeat cultures. 2. Pneumonia. Continue with IV antibiotic therapy. Will follow up on the culture results. 3. Pulmonary edema. The patient has received a total of 120 mg of Lasix today. We will continue to monitor for improvement. 4. Left temporo-occipital infarction. Continue with supportive care. Neurology is following. 5. Bacteremia secondary to MRSA. Continue on IV antibiotic therapy. 6. Hyperkalemia. This is likely secondary to Clinimix. This has been discontinued. 7. Diabetes mellitus type 2. Continue on sliding scale insulin. 8. Severe protein calorie malnutrition. The patient was on Clinimix. This has since been discontinued. We will monitor closely. The patient will likely require tube feeds. 9. GI prophylaxis. Continue on Protonix. 10. DVT prophylaxis. Continue on heparin. 11. Disposition: The patient is critically ill and has been transferred to the medical ICU. I updated the patient's brother and daughter on the patient's medical condition. cc: Nori Molina MD MTDD
--- NOTE | 2018-11-27 17:28 | PULMONOLOGY CONSULTATION ---
DATE: 11/27/2018 REQUESTING PHYSICIAN: Dr. Molina. REASON FOR CONSULTATION: Respiratory failure. HISTORY OF PRESENT ILLNESS: Mr. Duckworth is a 58-year-old white male with history of alcoholism, history of traumatic brain injury with subarachnoid hemorrhage last fall, history of hypertension and diabetes mellitus who was admitted to the hospital 18 days ago with coagulopathy. Blood cultures also revealed methicillin resistant Staph aureus and he developed progressive encephalopathy. He continued to do poor from a neurologic standpoint and tentatively was scheduled for a PEG tube today. Unfortunately, patient had progressive respiratory distress requiring emergent intubation today for progressive hypoxemic respiratory failure. PAST MEDICAL HISTORY: 1. History of atrial fibrillation. 2. Status post permanent pacemaker placement. 3. Alcoholism. 4. History of subarachnoid hemorrhage last fall. 5. Hypertension. 6. Diabetes mellitus. 7. 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 8. MRSA bacteremia of unknown source. 9. History of lumbar Carroll julienne placements. SOCIAL HISTORY: The patient has a 40 pack year history for tobacco with smoking at the time of admission. Alcohol use noted. FAMILY HISTORY: Unknown. REVIEW OF SYSTEMS: Cannot be obtained. PHYSICAL EXAMINATION: General: Reveals a chronically ill-appearing male with BMI of 21 who is now intubated and on mechanical ventilation. Current temperature 101 degrees, blood pressure 154/70, heart rate 71, oxygen saturation 95%. HEENT: Pupils are equal. Oropharynx is dry with crusting in place. Neck: Supple. Chest: Reveals asymmetric breath sounds with tubular sounding breath sounds on the right with crackles on the left. Cardiac: Irregular, irregular, normal S1, normal S2. Abdomen: Soft. Extremities: Cool to the touch, reveal chronic vascular disease without significant edema. LABORATORIES: Arterial blood gas is pending but arterial blood gas this morning on 2 L per nasal cannula revealed pH 7.50, pCO2 of 26, PO2 of 62. White blood count 25.5, hemoglobin 9.3, platelet count 380,000. Sodium 139, potassium 5.2, chloride 109, bicarbonate 20, BUN 45, creatinine 1.0. Chest x-ray reveals asymmetric infiltrates left greater than right. Probable pleural effusions noted earlier this morning. Following intubation, he has marked worsening of infiltrates and consolidation in the right lung with slight worsening on the left. IMPRESSION: 58-year-old with 1. Acute hypoxemic respiratory failure. 2. Acute pulmonary edema. 3. Cardiomyopathy. 4. Encephalopathy, presumptively ischemic in nature. 5. Possible Pvyzesu-Ofung-Hzgbg disease. 6. Diabetes. 7. Ongoing tobacco use. 8. History of alcohol use. 9. History of prior strokes. RECOMMENDATION: 1. Continue full ventilatory support. 2. Collect sputum for C and S. 3. Routine gastric acid suppression. 4. Routine sedation. 5. Routine bronchodilators. 6. Blood pressure control. 7. Overall prognosis appears to be poor as outlined by Neurology. TIME SPENT CRITICAL CARE: 1 hour. cc: Leonard Wing MD
--- NOTE | 2018-11-27 20:14 | PROVIDER PROGRESS NOTE ---
Progress Note - - SUBJECTIVE: Patient was scheduled for PEG placement today; however, this was cancelled secondary to new onset fever. The patient subsequently had acute decompensation of his respiratory status with hypoxia requiring emergent intubation and transfer to ICU. OBJECTIVE: Last Vital Signs Temp 97.2 F L 11/27/18 16:00 Pulse 78 11/27/18 18:02 Resp 26 H 11/27/18 18:02 BP 145/81 11/27/18 18:02 Pulse Ox 100 11/27/18 18:02 Height 6 ft 1 in Weight 159 lb 3.2 oz GEN: intubated, sedated HEENT: anicteric, MMM NECK: supple, no LAD CV: RRR, no murmurs PULM: vented BS ABD: soft NT/ND, NABS, no rebound or guarding EXT: no cce NEURO: intubated LABS: 11/27/18 11/27/18 04:45 04:45 WBC 25.48 H Hgb 9.3 L Plt Count 380 Sodium 139 Potassium 5.2 H Chloride 109 H Carbon Dioxide 20 L BUN 45 H Creatinine 1.0 Glucose 125 H AST 40 H ALT 18 Alkaline Phosphatase 93 Total Protein 5.6 L Albumin 2.6 L A/P: Mr. Duckworth is a 58M with history of Charcot Tyesha Tooth disease, prior TBI, HTN, DM who was admitted with CVA c/b dysphagia, odynophagia, MRSA bacteremia likely from PNA, and AMS. GI consulted for PEG placement. This was cancelled today given fever and acute hypoxic respiratory failure. #Dysphagia: - I recommend NGT or OGT placement for initiation for enteral nutrition - consult nutrition - patient will need to be afebrile for at least 24 hours prior to PEG placement , will reevaluate over the weekend #Acute hypoxic respiratory failure: likely 2/2 to known PNA +/- pulmonary edema ; pulmonary consulted, apprec recs; on abx per ID #Pulmonary edema: received lasix earlier today; will follow response #CVA: continue supportive care; Neuro following #MRSA: on abx per ID #Severe protein calorie malnutrition: initiate enteral nutrition as above; continue GI ppx Will follow with you. Please call with questions or concerns
[2018-11-27] MEDS: THIAMINE 100 MG in NS 50 ML IV SCH (20:48)
[2018-11-28] MEDS: DIPRIVAN 1% 1,000 MG/100 ML BOTTLE IV SCH ×3 (03:28→20:37)
[2018-11-28] MEDS: DUONEB (A & A) INH SCH ×6 (03:37→23:14)
[2018-11-28 04:48] LABS: ALLEN TEST YES; BE -1.8 mmoll (-3.0-3.0); BLOOD TYPE ARTERIAL; HCO3-(ACT) 23.5 mmoll (20.0-26.0); METHB 1.2 % (0.0-1.5); O2(CT) 15.5 mL/dL (15.0-23.0); O2HB 96.5 % (95.0-99.0); PCO2(98.6) 33 mmHg (35-45); PO2(98.6) 161 mmHg (60-100); SAMPLE BLOOD; SAO2 99.2 % (95.0-100.0); SRATE 16 BPM; THB 11.2 g/dL (11.5-17.4); TVOL 500 mL; pH(98.6) 7.43 (7.35-7.45)
[2018-11-28 04:49] LABS: MODALITY VENTILATOR
[2018-11-28] MEDS: HUMALOG SUBQ SCH ×4 (06:00→20:36)
[2018-11-28 06:12] LABS: BASO# 0.06 X1000 (0.0-0.2); BASO% 0.2 % (0.0-0.8); EOS# 0.13 X1000 (0.0-0.7); EOS% 0.5 % (0.0-10.0); HEMATOCRIT 27.6 % (42.0-52.0); HEMOGLOBIN 8.7 g/dL (14.0-18.0); IMM GRAN# 0.14 X1000 (0.0-0.04); IMM GRAN% 0.6 % (0.0-0.5); LYMPH% 7.2 % (20.5-51.1); MCH 33.2 PG (27-31); MCHC 31.5 g/dL (33-37); MCV 105.3 FL (81-99); MONO# 2.19 X1000 (0.11-0.59); MONO% 8.7 % (1.7-9.3); MPV 11.7 FL (7.4-10.4); NEUT# 20.77 X1000 (1.4-6.5); NEUT% 82.8 % (42.2-75.2); PLT 367 X1000 (130-400); RBC 2.62 XMIL (4.7-6.1); RDW 18.7 % (11.5-14.5); WBC 25.09 X1000 (4.8-10.8)
[2018-11-28 06:29] LABS: BANDS 2 % (0-1); LYMPHS 8 % (21-51); MONO 6 % (1-9); SEGS 84 % (42-75)
[2018-11-28 06:48] LABS: AGAP 13; ALBUMIN 2.9 g/dL (3.5-5.0); ALKALINE PHOSPHATASE 89 U/L (32-122); BUN 43 mg/dL (8-22); CALCIUM 8.5 mg/dL (8.8-10.2); CHLORIDE 109 mmol/L (98-107); COSMO 296; CREATININE 0.9 mg/dL (0.7-1.2); ESTIMATED GFR > 60; GLUCOSE 100 mg/dL (70-104); GOT 49 U/L (10-34); GPT 20 U/L (10-44); POTASSIUM 4.1 mmol/L (3.5-5.1); SODIUM 143 mmol/L (136-145); TCO2 21 mmol/L (25-35); TOTAL BILIRUBIN 0.99 mg/dL (0.20-1.00); TOTAL PROTEIN 5.9 g/dL (6.3-8.3)
--- NOTE | 2018-11-28 06:55 | Diag Imaging Result Doc PS360 ---
EXAM: CHEST-PORTABLE HISTORY: respiratory failure TECHNIQUE: Portable chest single view COMPARISON: 11/27/2018 FINDINGS: No change in the endotracheal tube. The infiltrates are less pronounced. The lungs are better expanded. Cardiomegaly remains. There is a left-sided pacemaker. Small to moderate-sized pleural effusions persist. IMPRESSION: Mild interval improvement. Electronically signed by Nando Sifuentes 11/28/2018 6:53 AM
[2018-11-28] MEDS: MAXIPIME 2 GM in NS 100 ML IV SCH ×2 (08:16→20:35)
[2018-11-28] MEDS: HEPARIN SUBQ SCH ×2 (08:16→20:35)
[2018-11-28] MEDS: VANCOMYCIN 1,400 MG in NS 250 ML IV SCH (08:16)
[2018-11-28] MEDS: PROTONIX IV SCH ×2 (08:16→20:33)
[2018-11-28] MEDS: ALBUMIN 25% IV SCH (08:16)
[2018-11-28] MEDS: ASPIRIN PR SCH (08:33)
[2018-11-28] MEDS: CELEXA PO SCH (08:33)
[2018-11-28] MEDS: DULCOLAX PR SCH ×2 (08:33→20:35)
[2018-11-28] MEDS: MIRALAX PO SCH (08:34)
[2018-11-28] MEDS: NORVASC PO SCH (08:34)
[2018-11-28] MEDS: THERA M PLUS PO SCH (08:34)
[2018-11-28] MEDS: LACTULOSE PO SCH ×2 (08:34→20:36)
[2018-11-28] MEDS: LASIX IV SCH ×2 (09:09→16:10)
[2018-11-28] MEDS: SANTYL OINT TOP SCH (09:16)
--- NOTE | 2018-11-28 12:36 | PROVIDER PROGRESS NOTE ---
Progress Note - - SUBJECTIVE: No acute overnight events. No N/V/F. Weaning vent OBJECTIVE: Last Vital Signs Temp 97.0 F L 11/28/18 11:38 Pulse 70 11/28/18 11:17 Resp 16 11/28/18 11:17 BP 152/83 11/28/18 11:17 Pulse Ox 100 11/28/18 11:17 Height 6 ft 1 in Weight 155 lb 4 oz GEN: intubated, sedated HEENT: anicteric, MMM NECK: supple, no LAD CV: RRR, no murmurs PULM: vented BS ABD: soft NT/ND, NABS, no rebound or guarding EXT: no cce NEURO: intubated LABS: 11/28/18 11/28/18 05:30 05:30 WBC 25.09 H Hgb 8.7 L Plt Count 367 Band Neutrophils 2 H Sodium 143 Potassium 4.1 D Chloride 109 H Carbon Dioxide 21 L BUN 43 H Creatinine 0.9 CXR: 11/28 FINDINGS: No change in the endotracheal tube. The infiltrates are less pronounced. The lungs arebetter expanded. Cardiomegaly remains. There is a left-sided pacemaker. Small to moderate-sized pleural effusions persist. IMPRESSION: Mild interval improvement. A/P: Mr. Duckworth is a 58M with history of Charcot Tyesha Tooth disease, prior TBI, HTN, DM who was admitted with CVA c/b dysphagia, odynophagia, MRSA bacteremia likely from PNA, and AMS. GI consulted for PEG placement. Case cancelled yesterday 2/2 fever and acute hypoxic respiratory failure requiring intubation. He has been afebrile and improving from pulmonary standpoint. #Dysphagia: - recommend NGT placement for initiation for enteral nutrition - consult nutrition - patient will need to be afebrile for at least 24 hours prior to PEG placement , will reevaluate tomorrow; anticipate PEG placement Friday #Acute hypoxic respiratory failure: likely 2/2 to known PNA +/- pulmonary edema ; pulmonary following; apprec recs; on abx per ID #Pulmonary edema: defer mgmt to primary and pulm #CVA: continue supportive care; Neuro following #MRSA: on abx per ID #Severe protein calorie malnutrition: initiate enteral nutrition as above; continue GI ppx Will follow with you. Please call with questions or concerns
--- NOTE | 2018-11-28 15:08 | Diag Imaging Result Doc PS360 ---
EXAM: KUB ABDOMEN HISTORY: Nasogastric placement confirmation TECHNIQUE: Chest abdomen single view COMPARISON: None. FINDINGS: There is a nasogastric tube overlying the esophagus and stomach. Heart is enlarged. There is a small left pleural effusion. Severe scoliosis. The bowel loops in the upper abdomen are not dilated. Prominent atherosclerosis. IMPRESSION: Nasogastric tube overlies the stomach. Electronically signed by Nando Sifuentes 11/28/2018 3:05 PM
--- NOTE | 2018-11-28 16:57 | PROGRESS NOTE ---
DATE: 11/28/2018 SUBJECTIVE: The patient is currently sedated on the ventilator. No acute events noted overnight. OBJECTIVE: Vital Signs: Temperature 98.6, blood pressure 152/83, heart rate 70 , respirations 15, O2 SATS 100% on the mechanical ventilator. Urine output 2.7 L. General: This is a chronically ill-appearing elderly male lying in bed in no acute distress. Heart: S1, S2 normal. Lungs: Coarse breath sounds bilaterally. Abdomen: Positive bowel sounds. Soft, nontender, nondistended. Extremities: No edema, no cyanosis. Neurologic: The patient is currently sedated. LABS: White blood cell count 25, hemoglobin 8.7, hematocrit 27, platelets 367, 000. Sodium 143, potassium 4.1, chloride 109, CO2 21, BUN 43, creatinine 0.9, glucose 100. DIAGNOSTICS: Chest x-ray shows cardiomegaly and small to moderate size pleural effusions. ASSESSMENT AND PLAN: 1. Acute hypoxemic respiratory failure, multifactorial. Ventilator management as per the fiber drier operator. 2. Pneumonia. Continue with IV antibiotic therapy and bronchodilator therapy. We will follow up on the blood and sputum cultures. 3. Acute pulmonary edema. Improved. 4. Bilateral pleural effusions. Will continue to monitor closely for improvement. 5. Acute cerebrovascular accident. Aware. Continue with supportive care. 6. Bacteremia secondary to MRSA. Continue on IV antibiotic therapy. 7. Leukocytosis. Unchanged. Continue with antibiotics. 8. Severe protein/calorie malnutrition. Will initiate tube feeds. The patient will eventually have a PEG tube placed once medically stable. 9. Diabetes mellitus type 2. Continue on sliding scale insulin. 10.GI prophylaxis. Continue on Protonix. 11.DVT prophylaxis. Continue on heparin. cc: Nori Molina MD [facility]
--- NOTE | 2018-11-28 20:09 | PULMONOLOGY PROGRESS NOTE ---
DATE: 11/28/2018 SUBJECTIVE: Patient is on mechanical ventilation. He appears comfortable. OBJECTIVE: Vital Signs: The patient has been afebrile over the last 24 hours. Blood pressure 134/76, heart rate 77, respiration rate 27, oxygen saturation 100%. HEENT: Pupils are equal and reactive. Oropharynx is clear. Neck: Is supple. Chest: Reveals prolonged expiratory phase with decreased breath sounds in both lung bases. Cardiac: S1, S2. Abdomen: Soft with mild increased tympany. Extremities: Are slightly cool to the touch. LABORATORIES: Chest x-ray reveals decreased in bilateral infiltrates. White blood count 25,000, hemoglobin 8.7, platelet count 367,000, sodium 143, potassium 4.1, chloride 109 , bicarbonate 21, BUN 43, creatinine 0.9. Arterial blood gas reveals a pH 7.43, pCO2 of 33, PO2 of 161. IMPRESSION: A 58-year-old with 1. Acute hypoxemic respiratory failure. 2. Acute pulmonary edema with pleural effusions. 3. Cardiomyopathy. 4. Altered mental status presented most likely due to ischemia. 5. History of Pchlzxl-Xjngn-Jsslj disease. 6. Diabetes. 7. Ongoing tobacco use. 8. History of prior strokes. 9. History of prior alcohol use. DISCUSSION: Patient's oxygen requirements have decreased with diuresis and his chest x-ray has marginally improved. RECOMMENDATION: 1. Continue ventilatory support. 2. Continue current antibiotic regimen. 3. Diuresis as tolerated. 4. Routine gastric acid suppression. 5. Routine bronchodilators. 6. Overall prognosis is poor as outlined in the initial consultation. Time spent in critical care: 30+ minutes cc: MD SETH Fernandez
[2018-11-28] MEDS: THIAMINE 100 MG in NS 50 ML IV SCH (20:37)
[2018-11-29] MEDS: LASIX IV SCH ×2 (00:30→13:48)
[2018-11-29] MEDS: VANCOMYCIN 1,400 MG in NS 250 ML IV SCH ×2 (01:41→20:45)
[2018-11-29] MEDS: MORPHINE IV PRN (02:27)
[2018-11-29] MEDS: DUONEB (A & A) INH SCH ×6 (03:51→23:47)
[2018-11-29 04:44] LABS: ALLEN TEST YES; BLOOD TYPE ARTERIAL; HCO3-(ACT) 24.2 mmoll (20.0-26.0); METHB 0.2 % (0.0-1.5); O2HB 97.5 % (95.0-99.0); PCO2(98.6) 32 mmHg (35-45); PO2(98.6) 94 mmHg (60-100); SAMPLE BLOOD; SAO2 100.9 % (95.0-100.0); SRATE 16 BPM; THB 5.7 g/dL (11.5-17.4); TVOL 500 mL; pH(98.6) 7.46 (7.35-7.45)
[2018-11-29 04:45] LABS: MODALITY VENTILATOR
[2018-11-29] MEDS: ASPIRIN PR SCH ×2 (04:59→08:01)
[2018-11-29] MEDS: DIPRIVAN 1% 1,000 MG/100 ML BOTTLE IV SCH ×3 (05:01→21:38)
[2018-11-29 06:15] LABS: BASO# 0.05 X1000 (0.0-0.2); BASO% 0.2 % (0.0-0.8); EOS# 0.14 X1000 (0.0-0.7); EOS% 0.7 % (0.0-10.0); HEMATOCRIT 28.5 % (42.0-52.0); HEMOGLOBIN 8.9 g/dL (14.0-18.0); IMM GRAN# 0.14 X1000 (0.0-0.04); IMM GRAN% 0.7 % (0.0-0.5); LYMPH# 1.69 X1000 (1.2-3.4); LYMPH% 8.4 % (20.5-51.1); MCH 32.8 PG (27-31); MCHC 31.2 g/dL (33-37); MCV 105.2 FL (81-99); MONO# 2.04 X1000 (0.11-0.59); MONO% 10.2 % (1.7-9.3); NEUT# 16.03 X1000 (1.4-6.5); NEUT% 79.8 % (42.2-75.2); PLT 413 X1000 (130-400); RBC 2.71 XMIL (4.7-6.1); WBC 20.09 X1000 (4.8-10.8)
[2018-11-29 06:38] LABS: AGAP 13; ALB/GLOB RATIO 0.9; ALKALINE PHOSPHATASE 101 U/L (32-122); BUN 46 mg/dL (8-22); CALCIUM 8.4 mg/dL (8.8-10.2); CHLORIDE 110 mmol/L (98-107); COSMO 302; ESTIMATED GFR > 60; GLUCOSE 117 mg/dL (70-104); GOT 51 U/L (10-34); GPT 22 U/L (10-44); POTASSIUM 3.4 mmol/L (3.5-5.1); SODIUM 145 mmol/L (136-145); TCO2 22 mmol/L (25-35); TOTAL BILIRUBIN 0.77 mg/dL (0.20-1.00); TOTAL PROTEIN 6.2 g/dL (6.3-8.3)
[2018-11-29] MEDS: HUMALOG SUBQ SCH ×4 (06:38→21:37)
[2018-11-29] MEDS ORDERED: POTASSIUM CHLORIDE 20% LIQUID NG ONE (07:02)
[2018-11-29] MEDS: MAXIPIME 2 GM in NS 100 ML IV SCH ×2 (07:44→20:45)
[2018-11-29] MEDS: PROTONIX IV SCH ×2 (07:44→15:49)
[2018-11-29 07:59] LABS: EOS 2 % (1-10); LYMPHS 4 % (21-51); SEGS 94 % (42-75)
[2018-11-29] MEDS: SANTYL OINT TOP SCH (08:00)
[2018-11-29] MEDS: CELEXA PO SCH (08:01)
[2018-11-29] MEDS: HEPARIN SUBQ SCH ×2 (08:01→21:37)
[2018-11-29] MEDS: NORVASC PO SCH (08:01)
[2018-11-29] MEDS: MIRALAX PO SCH (08:01)
[2018-11-29] MEDS: DULCOLAX PR SCH ×2 (08:01→21:37)
[2018-11-29] MEDS: LACTULOSE PO SCH ×2 (08:01→21:37)
[2018-11-29] MEDS: THERA M PLUS PO SCH (08:01)
--- NOTE | 2018-11-29 09:07 | Diag Imaging Result Doc PS360 ---
EXAM: CHEST-PORTABLE - 11/29/2018 HISTORY: respiratory failure TECHNIQUE: Portable chest COMPARISON: 11/28/2018 FINDINGS: Endotracheal tube and nasogastric tube remain in place. Heart size appears upper normal. There is transvenous cardiac pacemaker again seen. There are bilateral infiltrates/edema and apparent bilateral pleural effusions similar to prior. There is no pneumothorax identified. IMPRESSION: No significant change from prior. Electronically signed by [place] Christy 11/29/2018 9:04 AM
--- NOTE | 2018-11-29 15:02 | PULMONOLOGY PROGRESS NOTE ---
DATE: 11/29/2018 SUBJECTIVE: The patient is sedated. He remains on mechanical ventilation. OBJECTIVE: Vital Signs: Maximum temperature in the last 24 hours 100.6 degrees. Current temperature 99.4 degrees. HEENT: Pupils are equal. Oropharynx appears clear, with endotracheal tube in place. Neck: Supple. Chest: Reveals coarse rhonchi bilaterally, with decreased breath sounds in both lung bases. Cardiovascular: S1, S2. Abdomen: Soft. Extremities: Without edema. LABORATORIES: Chest x-ray reveals bibasilar infiltrates and effusions without change. Sodium 145, potassium 3.4, chloride 110, bicarbonate 22, BUN 46, creatinine 1.0. White blood count 20,000, hemoglobin 8.9, platelet count 413,000. Microbiology reveals no new data. IMPRESSION: A 58-year-old with: 1. Acute hypoxemic respiratory failure. 2. Pulmonary edema with pleural effusions. 3. Cardiomyopathy. 4. Altered mental status. 5. History of Hiwjdht-Panhj-Esrti disease. 6. Diabetes. 7. Ongoing tobacco use. 8. History of strokes. 9. History of prior alcohol use. DISCUSSION: The patient has had little change in the last 24 hours. Will attempt some Lasix today, but his BUN is climbing making aggressive diuresis difficult. Plan 1. Continue ventilator support 2. Attempted dialysis 3. Tube feeds if tolerated, 4. PEG when stable 5. Consider Trach if prolonged ventilation TIME Spent Critical Care: 30+ minutes cc: Leonard Wing MD MTDD
[2018-11-29] MEDS ORDERED: SODIUM CHLORIDE 0.9% INJ SCH (15:15)
--- NOTE | 2018-11-29 15:17 | PROVIDER PROGRESS NOTE ---
Progress Note - - SUBJECTIVE: Febrile to 100.6 overnight. Tolerating TFs with no residuals. Receiving diuresis for pulmonary edema. OBJECTIVE: Last Vital Signs Temp 99.4 F 11/29/18 11:39 Pulse 69 11/29/18 14:02 Resp 29 H 11/29/18 14:02 BP 144/77 11/29/18 14:02 Pulse Ox 100 11/29/18 14:02 Height 6 ft 1 in Weight 138 lb 9 oz on 40% FiO2 GEN: intubated, sedated HEENT: anicteric, MMM, OGT in place NECK: supple, no LAD CV: RRR, no murmurs PULM: vented BS ABD: soft NT/ND, NABS, no rebound or guarding EXT: no cce NEURO: intubated LABS: 11/29/18 11/29/18 05:30 05:30 WBC 20.09 H Hgb 8.9 L MCV 105.2 H Plt Count 413 H Sodium 145 Potassium 3.4 L D Chloride 110 H Carbon Dioxide 22 L Anion Gap 13 BUN 46 H Creatinine 1.0 Glucose 117 H A/P: Mr. Duckworth is a 58M with history of Charcot Tyesha Tooth disease, prior TBI, HTN, DM, h/o alcoholism who was admitted with CVA c/b dysphagia, odynophagia, MRSA bacteremia likely from PNA, AMS, acute hypoxic respiratory failure, and pulmonary edema/effusions. GI consulted for PEG placement, which has been placed on hold given persistent fever. OGT was placed yesterday and he is tolerating TFs. #Oropharngeal dysphagia: 2/2 CVA; continue enteral nutrition via OGT; monitoring fever curve; anticipate PEG placement Friday if remains afebrile for 48 hours #Acute hypoxic respiratory failure: likely 2/2 to known PNA and pulmonary edema ; pulmonary following; apprec recs; on abx per ID; on lasix #Pulmonary edema: diuresis as above #CVA: continue supportive care; Neuro following #MRSA: on abx per ID #Severe protein calorie malnutrition: on TFs; continue GI ppx Will follow with you. Please call with questions or concerns
[2018-11-29] MEDS: THIAMINE 100 MG in NS 50 ML IV SCH (21:37)
[2018-11-29] MEDS: TYLENOL PR PRN (21:39)
[2018-11-30] MEDS: LASIX IV SCH (02:00)
[2018-11-30] MEDS: DUONEB (A & A) INH SCH ×6 (03:43→23:24)
[2018-11-30 04:49] LABS: ALLEN TEST YES; BE -2.6 mmoll (-3.0-3.0); BLOOD TYPE ARTERIAL; HCO3-(ACT) 22.8 mmoll (20.0-26.0); O2(CT) 13.6 mL/dL (15.0-23.0); O2HB 92.5 % (95.0-99.0); PCO2(98.6) 25 mmHg (35-45); PO2(98.6) 66 mmHg (60-100); SAMPLE BLOOD; SAO2 95.6 % (95.0-100.0); SRATE 16 BPM; THB 10.4 g/dL (11.5-17.4); TVOL 500 mL
[2018-11-30 04:50] LABS: MODALITY VENTILATOR
[2018-11-30] MEDS: TYLENOL PR PRN (05:07)
[2018-11-30 06:52] LABS: ALB/GLOB RATIO 0.9; CALCIUM 8.4 mg/dL (8.8-10.2); CREATININE 1.3 mg/dL (0.7-1.2); POTASSIUM 4.6 mmol/L (3.5-5.1); TOTAL BILIRUBIN 0.87 mg/dL (0.20-1.00); TOTAL PROTEIN 6.3 g/dL (6.3-8.3)
[2018-11-30] MEDS: HUMALOG SUBQ SCH ×4 (07:02→20:42)
--- NOTE | 2018-11-30 07:12 | Diag Imaging Result Doc PS360 ---
EXAM: CHEST-PORTABLE 11/30/2018 HISTORY: respiratory failure TECHNIQUE: AP portable at 0532 COMMENT: There is an endotracheal tube with its tip at the thoracic inlet and an NG tube which passes below the diaphragm. The patient is rotated to the right. There is slightly less pleural fluid and pulmonary edema than on 11/29/2018. IMPRESSION: Improved pulmonary edema and pleural effusions. Electronically signed by Jem Hogue 11/30/2018 7:10 AM
[2018-11-30] MEDS: D5W 1,000 ML IV SCH ×2 (07:48→20:43)
[2018-11-30] MEDS: MAXIPIME 2 GM in NS 100 ML IV SCH ×2 (07:48→20:41)
--- NOTE | 2018-11-30 08:24 | PROGRESS NOTE ---
DATE: 11/29/2018 SUBJECTIVE: The patient is currently sedated on the ventilator. OBJECTIVE: Vital Signs: Temperature 99.4 degrees, blood pressure 143/76, heart rate 68, respirations 26, O2 saturation is 98% on mechanical ventilator. Intake and output: Intake 1.7 L. Output 2.3 L. General: This is a chronically ill-appearing elderly male, currently sedated on the ventilator. Heart: S1, S2 normal. Regular rate and rhythm. Lungs: Coarse breath sounds bilaterally. Abdomen: Positive bowel sounds. Soft, nontender, nondistended. Extremities: No edema, no cyanosis. Neurologic: The patient is currently sedated. LABORATORY DATA: White blood cell count 20, hemoglobin 8.9, hematocrit 28, platelets 413,000. Sodium 145, potassium 3.4, chloride 110, CO2 of 22, BUN 46, creatinine 1, glucose 117 calcium 8.4. ASSESSMENT AND PLAN: 1. Acute hypoxemic respiratory failure. Ventilator management as per the endocrinology nurse. 2. Pneumonia. Continue with antibiotic and bronchodilator therapy. 3. Bacteremia secondary to methicillin-resistant Staphylococcus aureus (MRSA). Continue on IV antibiotic therapy. 4. Acute pulmonary edema. Continue with diuretic therapy as directed by the endocrinology nurse. 5. Bilateral pleural effusions. Unchanged. 6. Acute cerebrovascular accident. Aware. 7. Protein calorie malnutrition. Continue with tube feeds. 8. Diabetes mellitus, type 2. Continue on sliding scale insulin. 9. Leukocytosis. Unchanged. 10. Anemia. Stable. 11. Gastrointestinal (GI) prophylaxis. Continue on Protonix. 12. Deep vein thrombosis (DVT) prophylaxis. Continue on heparin. cc: MD SETH Daley
[2018-11-30] MEDS: DIPRIVAN 1% 1,000 MG/100 ML BOTTLE IV SCH ×2 (08:27→18:25)
[2018-11-30 08:45] LABS: BASO# 0.17 X1000 (0.0-0.2); BASO% 0.6 % (0.0-0.8); EOS# 0.06 X1000 (0.0-0.7); EOS% 0.2 % (0.0-10.0); HEMATOCRIT 30.2 % (42.0-52.0); HEMOGLOBIN 9.6 g/dL (14.0-18.0); IMM GRAN# 0.37 X1000 (0.0-0.04); IMM GRAN% 1.4 % (0.0-0.5); LYMPH# 2.06 X1000 (1.2-3.4); LYMPH% 7.6 % (20.5-51.1); MCH 33.4 PG (27-31); MCHC 31.8 g/dL (33-37); MCV 105.2 FL (81-99); MONO# 2.78 X1000 (0.11-0.59); MONO% 10.2 % (1.7-9.3); MPV 12.3 FL (7.4-10.4); NEUT# 21.76 X1000 (1.4-6.5); PLT 461 X1000 (130-400); RBC 2.87 XMIL (4.7-6.1); RDW 19.4 % (11.5-14.5)
[2018-11-30] MEDS: ASPIRIN PR SCH (08:49)
[2018-11-30] MEDS: NORVASC PO SCH (08:49)
[2018-11-30] MEDS: DULCOLAX PR SCH ×2 (08:49→20:41)
[2018-11-30] MEDS: CELEXA PO SCH (08:49)
[2018-11-30] MEDS: SANTYL OINT TOP SCH ×2 (08:50→14:47)
[2018-11-30] MEDS: LACTULOSE PO SCH ×2 (08:50→20:42)
[2018-11-30] MEDS: MIRALAX PO SCH (08:50)
[2018-11-30] MEDS: THERA M PLUS PO SCH (08:50)
[2018-11-30] MEDS: HEPARIN SUBQ SCH ×2 (08:50→20:41)
[2018-11-30 09:56] LABS: BANDS 4 % (0-1); EOS 2 % (1-10); LYMPHS 6 % (21-51); MONO 7 % (1-9); SEGS 80 % (42-75)
--- NOTE | 2018-11-30 09:56 | EKG Report ---
Test Performed on : 11/29/2018 01:56:11 AM Test Reason : CCU. No order in MT Blood Pressure : / mmHG Vent. Rate : 088 BPM Atrial Rate : 071 BPM P-R Int : 000 ms QRS Dur : 138 ms QT Int : 484 ms P-R-T Axes : 000 -87 086 degrees QTc Int : 585 ms Ventricular-paced rhythm with frequent premature ventricular complexes. Abnormal ECG When compared with ECG of 24-NOV-2018 13:07, Electronic ventricular pacemaker has replaced Atrial flutter. Confirmed by Moiz BARNEY, Bull Montaño ([id number]) on 11/30/2018 9:13:06 PM
[2018-11-30 10:00] LABS: ANISOCYTOSIS OCCASIONAL
[2018-11-30] MEDS ORDERED: MOTRIN NG ONE (10:02)
--- NOTE | 2018-11-30 14:46 | GASTROENTEROLOGY PROGRESS NOTE ---
DATE: 11/30/2018 SUBJECTIVE: The patient is resting in bed. He is intubated and sedated. According to the nursing staff he is on tube feeds and tolerating them well with less residuals. He is moving his bowels and bowels are liquid brown. He has been spiking temps, T-max was 101.2 degrees this morning. PHYSICAL EXAMINATION: Vital Signs: Temperature 99.9 degrees, pulse rate of 75 , respiratory rate of 19, blood pressure 154/69, saturating 97% on 40% FiO2 mechanical ventilation. Body weight of 153 pounds. BMI 20.2 kg. General: Thinly built, lying in bed, intubated and sedated. HEENT: Positive pallor. No icterus. Positive NG tube. Positive ET tube. Neck: Supple. Abdomen: Soft, nontender. No guarding. Extremities: No cyanosis and clubbing. Neurologic: Had a recent stroke. Currently he is intubated, vented, and sedated. LABS: Hemoglobin and hematocrit are 9.6 and 30.2, white count of 27.2, platelet count of 461,000. ABG shows pH 7.50, pCO2 of 25; this is on ventilator FiO2 of 40%. Sodium 150, potassium 4.6, chloride 116, bicarb of 19, anion gap 15, BUN of 62, creatinine 1.3, glucose of 176, calcium 8.4, total bilirubin is 0.87, AST 51, ALT 23, alkaline phosphatase 116, total protein 6.3, albumin of 3. Sputum culture showing gram-positive cocci on 11/25/2018. Blood culture was negative x2 after 48 hours on 11/26/2018. Chest x-ray was done today which showed evidence of improved pulmonary edema and pleural effusions. IMPRESSION AND PLAN: 1. Oropharyngeal dysphagia secondary to cerebrovascular accident. He will continue on enteral nutrition via the NG tube. We will plan for PEG tube placement once the patient has been afebrile for 48 hours. 2. Cerebrovascular accident. Neurology is following. 3. Protein calorie malnutrition. He is on tube feeds. 4. Gastrointestinal prophylaxis with PPIs IV once daily. 5. Bowel regimen. MiraLAX once daily. 6. Diabetes. On Humalog sliding scale. 7. Deep vein thrombosis prophylaxis with heparin 5000 units every 12 hours subcutaneously. 8. Acute pulmonary edema. He is on treatment per the territory sales consultant. 9. Bilateral pleural effusions. Improving. 10. Anemia. Continue to watch for now and transfuse as needed. We will start him on multivitamin once daily and iron C b.i.d. 11. The above plan was discussed with the patient's nurse at bedside and all questions answered. Please call us with any further questions. cc: MD Nori Amin MD [facility]
[2018-11-30] MEDS: SODIUM CHLORIDE 0.9% INJ SCH (15:31)
[2018-11-30] MEDS: PROTONIX IV SCH (15:31)
--- NOTE | 2018-11-30 17:07 | PROGRESS NOTE ---
DATE: 11/30/2018 SUBJECTIVE: No major overnight events. He has been intubated since I last saw him. He has acute hypoxemic respiratory failure, acute pulmonary edema with pleural effusions. He is on sedation. Family is discussing amongst themselves whether or not they want to continue with full care versus withdrawal of care or seek palliative care. He has been made a DNR. OBJECTIVE: He has been febrile. Current temperature is 99.8. Blood pressure is 115 to 120s systolic. Pulse 70s, respirations 27 on the ventilator. Mr. Duckworth is supine in bed on the ventilator. Sedation with propofol was held at the time of my encounter. He moves his head occasionally side to side with noxious stimuli. He does not follow commands. Pupils are equal, round and reactive to bright light. Gaze is conjugate. There is some horizontal eye movement to passive head turning. No consistent blink to threat. Weak corneal bilaterally. I do not get movement of his extremities today, though he does grimace and move his head side to side. ASSESSMENT AND PLAN: 1. Recent left temporooccipital ischemic infarct. 2. Methicillin-resistant Staphylococcus aureus bacteremia. 3. Atrial fibrillation. Previously on chronic Coumadin therapy, held this admission due to INR of 13. 4. Alcoholism with recurrent falls. 5. Dysphagia secondary to number 1. 6. Considering PEG placement in the future. 7. Severe peripheral vascular disease, not currently amenable to surgery due to patient's ongoing medical issues. No new suggestions from a neurologic standpoint. I would continue his daily aspirin therapy as you are doing. Continue treating his medical conditions. I understand the family is considering plan of care going forward. cc: Zulema Peace MD MTDD
[2018-11-30] MEDS: THIAMINE 100 MG in NS 50 ML IV SCH (20:42)
[2018-11-30 23:26] LABS: URINE SOURCE CATH
[2018-11-30 23:57] LABS: UR CREAT RANDOM 55.7 mg/dL (14-26); UR PROT RANDOM 84.9 mg/dL
[2018-12-01 00:50] LABS: BILIRUBIN URINE NEGATIVE (NEGATIVE); BLOOD URINE MODERATE (NEGATIVE); COLOR YELLOW; GLUCOSE URINE NEGATIVE (NEGATIVE); KETONE URINE TRACE mg/dL (NEGATIVE); LEUKOCYTES URINE NEGATIVE (NEGATIVE); NITRITE URINE NEGATIVE (NEGATIVE); PROTEIN URINE 50 mg/dL (NEGATIVE); SP GRAVITY URINE 1.018; TURBIDITY URINE HAZY (CLEAR); UROBILINOGEN URINE NORMAL (NORMAL)
[2018-12-01 00:56] LABS: UR EPITHELIAL CELLS <10 /HPF (<10); URINE BACTERIA NEGATIVE /HPF; URINE RBC <10 /HPF (<10); URINE WBC <10 /HPF (<10)
[2018-12-01 01:18] LABS: URINE CASTS NONE SEEN; URINE CRYSTALS NONE SEEN; URINE SMALL ROUND CELLS NONE SEEN; URINE YEAST NONE SEEN
--- NOTE | 2018-12-01 02:31 | PROGRESS NOTE ---
DATE: 11/30/2018 SUBJECTIVE: The patient was noted to be febrile all night. He remains sedated on the ventilator. OBJECTIVE: Vital Signs: Temperature 100.6 degrees, blood pressure 127/71, heart rate 68, respirations 27, O2 saturation is 100% on the mechanical ventilator. Intake 1.9 L. Output 1.9 L. General: This is a chronically ill-appearing elderly male currently sedated on the ventilator. HEENT: Head normocephalic and atraumatic. Heart: S1, S2 normal. Regular rate and rhythm. Lungs: Coarse breath sounds bilaterally. Abdomen: Positive bowel sounds. Soft, nontender, nondistended. Extremities: Cold to touch. Unable to palpate the patient's pulses. No edema. Neurologic: The patient is currently sedated. LABS: White blood cell count 27, hemoglobin 9.6, hematocrit 30, platelets 461, 000. Sodium 150, potassium 4.6, chloride 116, CO2 of 19, BUN 62, creatinine 1.3, glucose 176, AST 51, ALT 23, alkaline phosphatase 116. ASSESSMENT AND PLAN: 1. Acute hypoxemic respiratory failure. Continue with ventilatory management as per the hides inspector. 2. Pneumonia. Continue with antibiotic therapy. 3. Bacteremia secondary to methicillin-resistant Staphylococcus aureus. Continue on antibiotic therapy. 4. Acute pulmonary edema. Improved. 5. Bilateral pleural effusions. Stable. 6. Acute kidney injury. We will check urine studies. The patient has also received diuretic therapy over the last several days. 7. Acute cerebrovascular accident. Continue with supportive care. 8. Protein calorie malnutrition. Continue with tube feeds. 9. Leukocytosis. Unchanged. Continue with antibiotic therapy. 10. Diabetes mellitus type 2. Continue on sliding scale insulin. 11. Hypernatremia. We will start the patient on D5W and monitor the sodium closely. 12. Gastrointestinal prophylaxis. Continue on Protonix. 13. Deep vein thrombosis prophylaxis. Continue on heparin. 14. Disposition. The patient is critically ill with a high risk of mortality. We will consult palliative care for assistance with goals of care. cc: Nori Molina MD [facility]
[2018-12-01] MEDS: DUONEB (A & A) INH SCH ×6 (03:30→23:25)
[2018-12-01 04:55] LABS: ALLEN TEST YES; BE -3.2 mmoll (-3.0-3.0); BLOOD TYPE ARTERIAL; HCO3-(ACT) 22.4 mmoll (20.0-26.0); METHB 0.8 % (0.0-1.5); O2(CT) 13.2 mL/dL (15.0-23.0); O2HB 93.7 % (95.0-99.0); PCO2(98.6) 34 mmHg (35-45); PO2(98.6) 69 mmHg (60-100); SAMPLE BLOOD; SAO2 96.3 % (95.0-100.0); SRATE 12 BPM; TVOL 600 mL
[2018-12-01 04:56] LABS: MODALITY VENTILATOR
[2018-12-01 05:09] LABS: BASO# 0.12 X1000 (0.0-0.2); BASO% 0.3 % (0.0-0.8); EOS% 0.5 % (0.0-10.0); HEMATOCRIT 28.5 % (42.0-52.0); HEMOGLOBIN 8.9 g/dL (14.0-18.0); IMM GRAN# 0.58 X1000 (0.0-0.04); IMM GRAN% 1.6 % (0.0-0.5); LYMPH# 2.72 X1000 (1.2-3.4); LYMPH% 7.4 % (20.5-51.1); MCH 32.5 PG (27-31); MCHC 31.2 g/dL (33-37); MONO# 2.63 X1000 (0.11-0.59); MONO% 7.2 % (1.7-9.3); MPV 12.2 FL (7.4-10.4); NEUT# 30.49 X1000 (1.4-6.5); PLT 368 X1000 (130-400); RBC 2.74 XMIL (4.7-6.1); RDW 18.9 % (11.5-14.5); WBC 36.74 X1000 (4.8-10.8)
[2018-12-01 05:24] LABS: LYMPHS 8 % (21-51); MONO 7 % (1-9); SEGS 85 % (42-75)
[2018-12-01 05:37] LABS: CALCIUM 7.7 mg/dL (8.8-10.2); MAGNESIUM 2.1 mg/dL (1.5-2.7); POTASSIUM 5.1 mmol/L (3.5-5.1)
[2018-12-01 05:52] LABS: PREALBUMIN 3.8 mg/dL (20-40)
[2018-12-01] MEDS: HUMALOG SUBQ SCH ×4 (06:24→21:43)
--- NOTE | 2018-12-01 06:40 | INFECTIOUS DISEASE PROGRESS NO ---
DATE: 11/30/2018 PRESENT ILLNESS: Mr. Duckworth is being treated for methicillin-resistant Staphylococcus aureus bacteremia which could have infected his pacemaker or Carroll rods in his spine. He has also had a pneumonia on his chest x-ray. There is a gram-positive coccus growing in his sputum which may also be MRSA. There is a progressive leukocytosis. MEDICATIONS: He is receiving cefepime 2 g IV every 12 hours and IV vancomycin per pharmacy dosing. PHYSICAL EXAMINATION: Vital Signs: Temperature is 98.2 degrees, pulse rate is 70, respiratory rate is 20, blood pressure 129/66, O2 saturation is 100% on a 40% FiO2 on the mechanical ventilator. General: This is a critically ill-appearing, middle-aged gentleman. He is lying in the bed. Currently sedated and intubated on the mechanical ventilator. HEENT: Atraumatic, normocephalic. Oral mucous membranes are pink and dry. Conjunctivae are pale. Oral ET tube and orogastric tube in place. He is receiving tube feedings. Respiratory: Lung sounds are coarse rhonchi bilaterally. Cardiovascular: Heart rate is regular. There is an atrial flutter on the monitor, 1:3 conduction. Abdomen: Soft, round. Bowel sounds are active. Integumentary: The skin is pale, cool, and mottled in some areas with multiple dry, scabby abrasions noted to his bilateral feet. LABORATORY AND X-RAY: Today, his white count is 27.2, hemoglobin 9.6, platelet count 461,000. This morning, on 40% FiO2 on the mechanical ventilator, his pH was 7.50, pCO2 25 , PO2 66, HCO3 22.8. His blood culture previously grew a methicillin-resistant Staphylococcus aureus. Since then, he has had two sterile sets of blood cultures and three sterile sets of urine cultures. His sputum has grown a gram-positive coccus. Chest x-ray today shows improved pulmonary edema and pleural effusions. ASSESSMENT AND PLAN: Mr. Duckworth is receiving vancomycin and cefepime for a possible pneumonia as well as a methicillin-resistant Staphylococcus aureus bacteremia. For now, we will continue vancomycin and cefepime as ordered, awaiting the final cultures. His leukocytosis continues at this point. These plans have been discussed with and recommended by Dr. De Souza. COMORBIDITIES: For Mr. Duckworth include presence of pacer and Lucretia rods, atrial fibrillation/flutter, diabetes mellitus, and Vxutblj-Cgtwk-Rznpi disease with arthritis. Dictated by SHREYA Thompson for Sanjiv De Souza MD This chart was documented by, SHREYA Thompson and accurately reflects the services performed, treatment plan and medical decisions as attested by the providers signature Sanjiv De Souza MD. cc: Sanjiv De Souza MD MTDD
--- NOTE | 2018-12-01 07:27 | Diag Imaging Result Doc PS360 ---
EXAM: CHEST-PORTABLE INDICATION: respiratory failure TECHNIQUE: One view COMPARISON: 11/30/2018 FINDINGS: Support tubes and lines are in stable positions. There has been an increase in pleural fluid with adjacent atelectasis and/or infiltrate at the lung bases as compared to the previous study. No other new consolidation is identified. Cardiac silhouette is stable. IMPRESSION: Increased pleural fluid with adjacent bibasilar atelectasis and/or infiltrate. Electronically signed by Joseph Ch 12/01/2018 7:24 AM
--- NOTE | 2018-12-01 08:16 | PULMONOLOGY PROGRESS NOTE ---
DATE: 11/30/2018 SUBJECTIVE: Patient remains on mechanical ventilation. OBJECTIVE: Vital Signs: Maximum temperature in the last 24 hours is 101.8 degrees. Current temperature is 98.2 degrees. Blood pressure 119/72, heart rate 70, respiratory rate 28, oxygen saturation 100%. HEENT: Pupils are equal and reactive to the light. Neck: Supple. Chest: Reveals good air entry bilaterally without wheezing or rhonchi. Cardiac: Regular rate. Normal S1, normal S2. Abdomen: Soft with rare bowel sounds. Extremities: Without edema. LABORATORIES AND X-RAY: Chest x-ray reveals increased aeration in the bases. He is rotated. Arterial blood gas: PH 7.50, pCO2 of 25, PO2 of 66. White blood count 27,000, hemoglobin 9.6, platelet count 461,000. Chemistry: Sodium 150, potassium 5.6, chloride 116, bicarbonate 19, BUN 62, creatinine 1.3. Laboratories: Sputum culture is growing a gram-positive cocci. IMPRESSION: A 58-year-old with: 1. Acute hypoxemic respiratory failure. 2. Pulmonary edema with pleural effusions. 3. Cardiomyopathy. 4. Recent stroke. 5. Lomfhgp-Fsvdi-Ltgwg disease. 6. Diabetes. 7. History of prior alcohol use. DISCUSSION: The patient has had some radiographic improvement over the last 24 hours. He is hyperventilating above the ventilator set rate and is alkalotic. This may be related to his recent brain injury or could be related to his fevers. Currently, this excess ventilation will make it difficult to wean this patient. RECOMMENDATION: 1. Wean ventilatory support as tolerated. 2. Agree with addition of free water given hypernatremia. 3. End of life discussion is in progress. The patient's family has decided to allow patient to have a natural /Do Not Resuscitate 1 status. They would like to pursue a percutaneous endoscopic gastrostomy tube at this juncture and are not willing to withdrawal support at this time. TIME SPENT CRITICAL CARE: 30+ minutes. cc: Leonard Wing MD
[2018-12-01] MEDS: NORVASC PO SCH (09:32)
[2018-12-01] MEDS: HEPARIN SUBQ SCH ×2 (09:32→20:45)
[2018-12-01] MEDS: THERA M PLUS PO SCH (09:32)
[2018-12-01] MEDS: CELEXA PO SCH (09:32)
[2018-12-01] MEDS: MAXIPIME 2 GM in NS 100 ML IV SCH (09:33)
[2018-12-01] MEDS: ASPIRIN PR SCH (09:33)
[2018-12-01] MEDS: DIPRIVAN 1% 1,000 MG/100 ML BOTTLE IV SCH (09:33)
[2018-12-01] MEDS: LACTULOSE PO SCH ×2 (09:36→20:44)
[2018-12-01] MEDS: DULCOLAX PR SCH ×2 (09:36→21:42)
[2018-12-01] MEDS: MIRALAX PO SCH (09:36)
[2018-12-01] MEDS: SANTYL OINT TOP SCH (09:37)
--- NOTE | 2018-12-01 10:04 | PROVIDER PROGRESS NOTE ---
Progress Note - - SUBJECTIVE: No acute overnight events. Patient continues to have persistent fever. RN unable to obtain LE or femoral pulses and obtaining access has been difficult. He is doing well from vent standpoint. He is having copious diarrhea. Tolerating TFs without residuals OBJECTIVE: Last Vital Signs Temp 98.6 F 12/01/18 04:00 Pulse 70 12/01/18 08:11 Resp 16 12/01/18 08:11 BP 135/76 12/01/18 06:02 Pulse Ox 99 12/01/18 08:11 Height 6 ft 1 in Weight 155 lb 8 oz GEN: intubated HEENT: anicteric, MMM NECK: no JVD PULM: vented BS, no wheezing CV: RRR, no murmurs ABD: soft NT/ND EXT: thin, erythematous and multiple ulcerations b/l, cool, unable to palpate pulses NEURO: sedated LABS: 11/30/18 12/01/18 12/01/18 05:38 04:15 04:15 WBC 36.74 H Hgb 8.9 L Plt Count 368 Band Neutrophils 4 H Sodium 141 Potassium 5.1 Chloride 109 H Carbon Dioxide 18 L BUN 83 H Creatinine 2.0 H Glucose 204 H CXR 12/01/2018 EXAM: CHEST-PORTABLE INDICATION: respiratory failure TECHNIQUE: One view COMPARISON: 11/30/2018 FINDINGS: Support tubes and lines are in stable positions. There has been an increase in pleural fluid with adjacent atelectasis and/or infiltrate at the lung bases as compared to the previous study. No other new consolidation is identified. Cardiac silhouette is stable. IMPRESSION: Increased pleural fluid with adjacent bibasilar atelectasis and/or infiltrate. A/P: Mr. Duckworth is a 58M with history of Charcot Tyesha Tooth disease, prior TBI, HTN, DM, h/o alcoholism who was admitted with CVA c/b orodysphagia, MRSA bacteremia likely from PNA ?LE infection, AMS, acute hypoxic respiratory failure , and pulmonary edema/effusions. GI consulted for PEG placement, which has been placed on hold given persistent fever. Worsening leukocytosis with bandemia. ID following. He has been having diarrhea since initiation of TFs, which could be iatrogenic vs infectious. Ordered Cdiff. I am concerned about infection LEs given poor perfusion and have discussed with primary. Lactate ordered. #Fever/Leukocytosis: persistent; concerning for uncontrolled infection; cdiff ordered; defer workup to ID/primary #Probable PAD: unable to palpate pulses and cool LEs; consider surgery evaluation #Oropharngeal dysphagia: 2/2 CVA; continue enteral nutrition via OGT; monitoring fever curve #Diarrhea: cdiff pending #Acute hypoxic respiratory failure: likely 2/2 to known PNA and pulmonary edema ; pulmonary following; apprec recs; on abx per ID; on minimal vent settings #Pulmonary edema: diuresis as per primary #CVA: continue supportive care; Neuro following #MRSA: on abx per ID #Severe protein calorie malnutrition: on TFs; continue GI ppx Will follow with you. Please call with questions or concerns
--- NOTE | 2018-12-01 13:26 | PROGRESS NOTE ---
DATE: 12/01/2018 SUBJECTIVE: The patient is currently intubated as well as sedated. OBJECTIVE: Vital signs: Temperature 98.8 degrees, pulse 70, respirations 25, blood pressure 127/70, oxygen saturation is 98%. HEENT: He is atraumatic, normocephalic. Cardiovascular: S1, S2. Respiratory: No rales or rhonchi noted. Abdomen: Soft, nontender. No masses felt. Extremities: No evidence of edema. Dorsalis pedis pulse cannot be appreciated in both feet. There is significant discoloration on the distal aspect of the right foot. LABORATORY DATA: WBC 36.74, hematocrit is 28.5, with a platelet count of 368, 000. ABG 7.4/34/69/96.3 percent. Sodium is 141, potassium 5.1, chloride is 109, bicarb is 15, creatinine is 2.0. ASSESSMENT AND PLAN: 1. Acute respiratory failure. Continue ventilator support. Treat primary lung conditions, primary mainly pneumonia as well as a pulmonary edema. The patient is being followed by the Pulmonary team. 2. Pneumonia. Continue antibiotics. 3. Bacteremia secondary to methicillin-resistant Staphylococcus aureus. Continue antibiotic as recommended by the Infectious Disease team. 4. Acute kidney injury. Probably secondary to diuretic effect. Follow up on renal function. Avoid nephrotoxic agents. 5. Acute cerebrovascular accident. Neurology following. 6. Diabetes mellitus. Continue sliding scale insulin as well as blood sugar monitoring. 7. Hypernatremia, resolved. Can discontinue D5W. 8. Deep vein thrombosis prophylaxis. Heparin. 9. Gastrointestinal prophylaxis. Proton pump inhibitor. cc: Luis Salazar MD [facility]
[2018-12-01] MEDS: ALBUMIN 25% IV SCH (13:34)
[2018-12-01] MEDS: ZYVOX 600 MG/D5W 600 MG/300 ML IVPB IV SCH (13:34)
[2018-12-01] MEDS: MYCAMINE 100 MG in NS 100 ML IV SCH (14:17)
--- NOTE | 2018-12-01 15:20 | NEPHROLOGY CONSULTATION ---
DATE: 12/01/2018 REASON FOR CONSULTATION: Acute kidney injury. HISTORY OF PRESENT ILLNESS: Mr. Duckworth is a 58-year-old man who has been in the hospital for most of the month of November. He originally presented with recent subarachnoid hemorrhage, swelling, bruising, INR 13. He has been progressively worse and now he is intubated on the ventilator with altered mental status. In this context, his white count has been markedly elevated and he has had presumed sepsis. Fever has been ongoing as high as 101.8 in the last 24 hours. In this context, he has developed acute kidney injury. PAST MEDICAL HISTORY: Diabetes, hypertension, atrial fibrillation, subarachnoid hemorrhage, peripheral vascular disease, Sgbrjyl-Vwjed-Vhjcm. ALLERGIES: None. Social, family, review of systems otherwise not obtainable. PHYSICAL EXAMINATION: Vital Signs: Blood pressure 141/70, heart rate 70, respirations 27, intake 3.6 L, output 275 mL. General: He is a chronically ill-appearing man on the ventilator unresponsive. Skin is pale and dry. He has multiple lesions on the legs, shallow ulcers. Toes are cyanotic. Conjunctivae are pink. Pupils are equal. Oropharynx is dry. Neck: Neck veins are not appreciated. Heart: Regular. Lungs: Equal, coarse throughout. No crackles. Abdomen: Soft, nontender. Bowel sounds are present. Extremities: With 1+ edema. No clubbing or cyanosis. Neurologic: Obscured. IMPRESSION: Acute kidney injury. New in onset. Presumably acute tubular necrosis. Lab studies show 1+ protein, 1+ blood. Minimal urine protein by protein creatinine ratio and a low serum sodium. He has not had recent abdominal imaging so we will perform that. Otherwise will give albumin for volume expansion. cc: Marco Dewitt MD
--- NOTE | 2018-12-01 15:51 | Diag Imaging Result Doc PS360 ---
EXAM: US RENAL 2 (RETROPER) COMPLETE HISTORY: decreased renal function TECHNIQUE: Renal ultrasound COMPARISON: None. FINDINGS: The right kidney measures 11.0 x 6.4 x 6.2 cm. There is increased renal echotexture. Normal cortical thickness. No stone or hydronephrosis. No renal mass. The left kidney measures 11.3 x 5.4 x 5.1 cm. Mild increased renal echotexture. Normal cortical thickness. No stone or hydronephrosis. No renal mass. There is a Villar catheter in the urinary bladder. IMPRESSION: Increased renal echotexture which can be seen with medical renal disease. Electronically signed by Nando Sifuentes 12/01/2018 3:48 PM
[2018-12-01] MEDS: SODIUM CHLORIDE 0.9% INJ SCH (15:56)
[2018-12-01] MEDS: PROTONIX IV SCH (15:56)
[2018-12-01] MEDS ORDERED: CALMOSEPTINE OINTMENT TOP PRN (16:32)
--- NOTE | 2018-12-01 17:31 | INFECTIOUS DISEASE PROGRESS NO ---
DATE: 12/01/2018 PRESENT ILLNESS: The patient is currently being treated for methicillin- resistant Staphylococcus aureus bacteremia and pneumonia. The patient also has a progressive leukocytosis. MEDICATIONS: The patient has been on vancomycin and cefepime. PHYSICAL EXAMINATION: Vital Signs: Temperature was 102 degrees, now it is 99, pulse 70, respirations 27, blood pressure 141/70. General: This is an ill-appearing middle-aged male. He is intubated and sedated. Head, eyes, ears, nose, and throat: No drainage noted from the nose or ears. Neck: No meningismus. Lungs: Clear to auscultation. Cardiovascular: Heart rate is regular. Abdomen: Soft and not tender. Neurologic: The patient is obtunded. He does not make any movements. Integument: No rash noted. Extremities: Both the patient's feet are cool and mottled. Patient has a PICC in his left arm. The site is not erythematous or draining. DIAGNOSTIC STUDIES: The CBC today shows a white count of 36,740, hemoglobin 8.9 , and platelet count 368,000. The patient's blood gases show a pH of 7.4, a PO2 of 69, and a pCO2 of 34. Creatinine is 2, GFR is 34. Chest x-ray shows increased bibasilar pleural fluid and increase in atelectasis and/or infiltrate in the bases. Blood and urine cultures are pending. The patient's sputum is growing methicillin-resistant Staphylococcus aureus. ASSESSMENT AND PLAN: Patient has pneumonia and bacteremia and his white count is going up. I have discontinued vancomycin and cefepime and started the patient on Zyvox and micafungin. I have ordered blood cultures and a urine culture, too. COMORBIDITIES: 1. The patient has presence of a pacemaker. 2. Carroll rods on spine. 3. He also has diabetes mellitus. 4. Pjtnpcm-Dnwmx-Pkfzu disease 5. History of atrial fibrillation/flutter. cc: MD SETH White
--- NOTE | 2018-12-01 17:59 | Extremity Venous Study ---
PROCEDURE NAME: Venous U/S Right Arm - 11/27/2018 RIGHT UPPER EXTREMITY VENOUS DUPLEX STUDY: REFERRING PHYSICIAN: Dr. Molina. READING PHYSICIAN: Dr. Bazan. SUPERVISORY CBP OFFICER: Margarita. INDICATION: Right arm swelling. FINDINGS: The right internal jugular, subclavian, axillary and upper arm basilic veins were imaged. They are compressible, patent, without thrombus. The right basilic vein, however, is thrombosed beginning at the elbow. There is also thrombus and noncompressibility of the right median cubital vein and the distal brachial vein in the upper arm, as well as the radial and ulnar veins and cephalic vein from the upper arm to the wrist. INTERPRETATION: 1. There is acute DVT of the distal right brachial and proximal radial and ulnar veins. 2. There is acute SVT of the right basilic vein, median cubital and cephalic veins. cc: MD Nori Hermosillo MD
--- NOTE | 2018-12-01 18:17 | PROGRESS NOTE ---
DATE: 12/01/2018 SUBJECTIVE: No major overnight events. Family has decided to continue with DNR status but otherwise to continue with care. OBJECTIVE: The patient's temperature maximum is 99.8 around midnight. Afebrile since. Blood pressure is 138/69, pulse 70s, respirations 29, he is on the mechanical ventilator. Sedation was held for three to five minutes for the examination. Mr. Duckworth turns his head side to side with loud voice and mild noxious stimuli. He does not voluntarily open his eyes. He does not follow commands or regard. Pupils are equal, round and reactive to light. He has some horizontal eye movement with passive head turning. No consistent blink to threat. Weak corneas bilaterally. There is some resistance to passive eye opening bilaterally. He continues to have the right lower facial asymmetry. No movement of the right upper extremity. The left upper extremity is antigravity with noxious stimuli. LABS: White count trending up, today is 36. Sodium normalized. BUN 83 and creatinine 2.0, up trending. Blood sugars upper 100s to low 200s. ASSESSMENT AND PLAN: 1. Recent left temporooccipital ischemic infarct. Dominant hemisphere syndrome. 2. Atrial fibrillation, previously on chronic Coumadin therapy, which was held this admission due to INR of 13. 3. Alcoholism with recurrent falls. 4. Methicillin-resistant Staphylococcus aureus bacteremia. 5. Severe peripheral vascular disease. 6. Dysphagia secondary to recent left temporooccipital ischemic infarct. Considering percutaneous endoscopic gastrostomy. At this point I would again continue daily aspirin as you are doing. Continue treating his medical conditions. I believe there is a plan for a PEG placement once able. No new suggestions from a neurologic standpoint. cc: Zulema Peace MD
[2018-12-01] MEDS: THIAMINE 100 MG in NS 50 ML IV SCH (20:44)
--- NOTE | 2018-12-01 23:02 | PULMONOLOGY PROGRESS NOTE ---
DATE: 12/01/2018 SUBJECTIVE: The patient remains poorly responsive. OBJECTIVE: Respiratory rate remains elevated between 26 and 31 breaths per minute. Maximum temperature last evening was 99.8 degrees, heart rate 70, blood pressure 138/ 62.HEENT: The patient response to noxious stimuli. Pupils are equal. He has right facial asymmetry. Neck: Supple. Chest: Reveals coarse rhonchi bilaterally. Cardiac exam: S1-S2. Abdomen: Soft with diminished bowel sounds. Extremities: Slightly cool to the touch. LABORATORIES: Chest x-ray reveals increased fluid in the lung bases. White blood count 36,000, hemoglobin 8.9, platelet count 368,000. Arterial blood gas reveals a pH of 7.40 , pCO2 of 34, PO2 of 69. Sodium 141, potassium 5.1, chloride 101, bicarbonate 18. Anion gap has increased to 14. BUN is 83, creatinine 2.0. Creatine kinase is 111. IMPRESSION: 1. A 58-year-old with acute hypoxemic respiratory failure, pulmonary edema with increased pleural effusions, and decreased urine output. 2. Cardiomyopathy. 3. Recent stroke. 4. Krrcogm-Vulrj-Nacss disease. 5. Diabetes mellitus. 6. Prior alcohol use. 7. Progressive renal failure. DISCUSSION: Although patient had some radiographic improvement yesterday, he has had marked declining clinical status today. Respiratory rate remains elevated with increased minute ventilation. White blood count has markedly increased, and he has had significant worsening of his renal function. He will not be a candidate for weaning today. RECOMMENDATION: 1. Continue ventilatory support. 2. Agree with antibiotic change as outlined by Infectious Disease. 3. The patient's prognosis seems to be extremely poor. Agree with current code status which is to ALLOW PATIENT TO HAVE A NATURAL . Would recommend ongoing discussions with family concerning withdrawal of care, which would be appropriate for this patient. Time spent in critical care management: 30+ minutes cc: MD SETH Fernandez
[2018-12-02] MEDS: DIPRIVAN 1% 1,000 MG/100 ML BOTTLE IV SCH ×3 (00:25→20:03)
[2018-12-02] MEDS: ZYVOX 600 MG/D5W 600 MG/300 ML IVPB IV SCH ×2 (00:25→13:17)
[2018-12-02] MEDS: DUONEB (A & A) INH SCH ×6 (03:04→23:58)
[2018-12-02 04:45] LABS: ALLEN TEST YES; BE -3.2 mmoll (-3.0-3.0); BLOOD TYPE ARTERIAL; HCO3-(ACT) 22.4 mmoll (20.0-26.0); O2(CT) 11.7 mL/dL (15.0-23.0); O2HB 93.7 % (95.0-99.0); PCO2(98.6) 32 mmHg (35-45); PO2(98.6) 74 mmHg (60-100); SAMPLE BLOOD; SAO2 96.9 % (95.0-100.0); SRATE 12 BPM; THB 8.8 g/dL (11.5-17.4); TVOL 600 mL; pH(98.6) 7.42 (7.35-7.45)
[2018-12-02 04:47] LABS: MODALITY VENTILATOR
[2018-12-02 05:27] LABS: BASO% 0.3 % (0.0-0.8); EOS# 0.34 X1000 (0.0-0.7); EOS% 0.9 % (0.0-10.0); HEMATOCRIT 27.5 % (42.0-52.0); HEMOGLOBIN 8.7 g/dL (14.0-18.0); IMM GRAN# 0.97 X1000 (0.0-0.04); IMM GRAN% 2.6 % (0.0-0.5); LYMPH# 2.38 X1000 (1.2-3.4); LYMPH% 6.4 % (20.5-51.1); MCH 32.3 PG (27-31); MCHC 31.6 g/dL (33-37); MCV 102.2 FL (81-99); MONO# 2.03 X1000 (0.11-0.59); MONO% 5.5 % (1.7-9.3); MPV 12.7 FL (7.4-10.4); NEUT# 31.19 X1000 (1.4-6.5); NEUT% 84.3 % (42.2-75.2); PLT 377 X1000 (130-400); RBC 2.69 XMIL (4.7-6.1); RDW 18.6 % (11.5-14.5); WBC 37.01 X1000 (4.8-10.8)
[2018-12-02 06:03] LABS: ALB/GLOB RATIO 0.7; ALBUMIN 2.6 g/dL (3.5-5.0); CALCIUM 8.5 mg/dL (8.8-10.2); POTASSIUM 4.9 mmol/L (3.5-5.1); TOTAL BILIRUBIN 0.54 mg/dL (0.20-1.00); TOTAL PROTEIN 6.1 g/dL (6.3-8.3)
[2018-12-02] MEDS: HUMALOG SUBQ SCH ×4 (06:10→20:03)
--- NOTE | 2018-12-02 07:31 | Diag Imaging Result Doc PS360 ---
EXAM: CHEST-PORTABLE HISTORY: respiratory failure TECHNIQUE: Portable chest single view COMPARISON: 12/01/2018 FINDINGS: No change in endotracheal tube or nasogastric tube. There is a left-sided pacemaker. Infiltrates are found in the mid and lower lungs, right greater than left. The infiltrates in the left base are actually slightly less prominent than they were previously. There are small pleural effusions. IMPRESSION: Mild interval improvement. Electronically signed by aNndo Sifuentes 12/02/2018 7:29 AM
[2018-12-02] MEDS: MIRALAX PO SCH (09:03)
[2018-12-02] MEDS: DULCOLAX PR SCH ×2 (09:03→21:13)
[2018-12-02] MEDS: ALBUMIN 25% IV SCH (09:09)
[2018-12-02] MEDS: LACTULOSE PO SCH ×2 (09:11→20:03)
[2018-12-02] MEDS: CELEXA PO SCH (09:11)
[2018-12-02] MEDS: NORVASC PO SCH (09:11)
[2018-12-02] MEDS: ASPIRIN PR SCH (09:11)
[2018-12-02] MEDS: HEPARIN SUBQ SCH ×2 (09:11→20:03)
[2018-12-02] MEDS: THERA M PLUS PO SCH (09:11)
--- NOTE | 2018-12-02 09:50 | PROVIDER PROGRESS NOTE ---
Progress Note - - SUBJECTIVE: No acute overnight events. Continues to spike fever. Per RN, unable to palpate LE pulses up to femoral arteries bilaterally. He also has RUE DVT. He is tolerating TFs. Has liquid brown stools. Cdiff negative. Now DNR. Palliative care still making attempts to have GOC with daughter who lives locally. OBJECTIVE: Last Vital Signs Temp 99.9 F H 12/02/18 04:00 Pulse 70 12/02/18 09:17 Resp 27 H 12/02/18 09:17 BP 176/82 12/02/18 09:17 Pulse Ox 92 L 12/02/18 09:02 Height 6 ft 1 in Weight 160 lb 2 oz GEN: intubated, sedated, cachetic HEENT: anicteric, MMM, ET tube in place NECK: no JVD PULM: vented BS, no wheezing CV: RRR, no murmurs ABD: soft NT/ND, rectal tube with brown liquid stools EXT: thin, erythematous and multiple b/l LE ulcerations and subcutaneous purulent material in RLE, cool, unable to palpate periperal pulses NEURO: sedated LABS: 12/01/18 12/01/18 12/02/18 04:15 10:34 04:20 WBC Hgb Plt Count Sodium 141 Potassium 4.9 Chloride 107 Carbon Dioxide 20 L BUN 94 H Creatinine 2.0 H AST 41 H ALT 21 Alkaline Phosphatase 151 H Prealbumin 3.8 L Plasma Lactate 1.5 12/02/18 04:20 WBC 37.01 H Hgb 8.7 L Plt Count 377 Sodium Potassium Chloride Carbon Dioxide BUN Creatinine AST ALT Alkaline Phosphatase Prealbumin Plasma Lactate A/P: Mr. Duckworth is a 58M with history of Charcot Tyesha Tooth disease, prior TBI, HTN, DM, h/o alcoholism who was admitted with CVA c/b orodysphagia, MRSA bacteremia likely from PNA ?LE infection, AMS, acute hypoxic respiratory failure , and pulmonary edema/effusions. GI consulted for PEG placement, which has been placed on hold given persistent fever with worsening leukocytosis. I am concerned about LE ischemia and infection. #Fever/Leukocytosis: persistent; concerning for uncontrolled infection; cdiff negative; on broad spectrum antimicrobial; defer workup to ID/primary #Probable PAD: unable to palpate pulses and cool LEs; consider surgery evaluation #Oropharngeal dysphagia: 2/2 CVA; continue enteral nutrition via OGT; monitoring fever curve #Diarrhea: negative; likely from TFs #Acute hypoxic respiratory failure: likely 2/2 to known PNA and pulmonary edema ; pulmonary following; apprec recs; on abx per ID; on minimal vent settings #Pulmonary edema: tx per pulm/primary #DEMETRIA: increased Cr #CVA: continue supportive care; Neuro following #MRSA: on abx per ID #Severe protein calorie malnutrition: on TFs; continue GI ppx Given patients persistent fever and leukocytosis as well as declining clinical status, the patient is not a candidate for PEG tube placement at this time. Overall, prognosis is poor. Recommend continued GOC discussion. Will sign off. Please call with questions or concerns.
[2018-12-02] MEDS: MORPHINE IV PRN ×2 (11:05→21:13)
--- NOTE | 2018-12-02 12:28 | PROGRESS NOTE ---
DATE: 12/02/2018 SUBJECTIVE: The patient is currently intubated as well as sedated. OBJECTIVE: Vital Signs: Temperature 99.8 degrees, pulse 70, respiratory rate 20, blood pressure 156/71, and oxygen saturation is 98%. HEENT: He is atraumatic, normocephalic. Cardiovascular: S1, S2. Respiratory: Evidence of good air entry bilaterally. Abdomen: Soft and nontender. No masses felt. Extremities: No evidence of edema. He has significant discoloration of the right lower extremity. Central nervous system: The patient is currently sedated as well as intubated. LABORATORY: WBC of 37.01, hematocrit 27.5 with a platelet count of 37,000. ABG 7.42/32/74/96.9%. Sodium is 140, potassium 4.9, chloride 107, and bicarb is 28. BUN is 24, and creatinine is 2.0. X-ray of chest shows infiltrates in the lower lungs right greater than left. ASSESSMENT AND PLAN: 1. Acute respiratory failure. Continue ventilator support. Treat her primary lung conditions. Pulmonary following.. 2. Pneumonia. Continue antibiotics. 3. Bacteremia secondary to methicillin-resistant Staphylococcus aureus. Continue antibiotics. 4. Acute kidney injury. Follow up on renal function. Avoid nephrotoxic agent. 5. Acute cerebrovascular accident. Continue supportive care. Neurology is following. 6. Diabetes mellitus. Continue blood sugar monitoring as well as sliding scale insulin. 7. Hypernatremia, resolved. 8. Peripheral artery disease. Surgery team following. No plans for surgery at this time. 9. Deep vein thrombosis prophylaxis. Heparin. 10. Gastrointestinal prophylaxis. PPI. cc: Luis Salazar MD [facility]
--- NOTE | 2018-12-02 13:11 | NEPHROLOGY PROGRESS NOTE ---
DATE: 12/02/2018 SUBJECTIVE: Sedated, unresponsive. OBJECTIVE: Vital Signs: Blood pressure 176/78, heart rate 70, respirations 28, temperature 99.9 degrees. Intake. 3.3 L; output 1.4 L. General: Physical exam unresponsive. No distress. Skin: Warm and dry. Ecchymoses are present. HEENT: Conjunctivae are pink. Oropharynx is dry. Neck: Neck veins are not appreciated. Heart: Regular. Lungs: Equal with a few scattered rhonchi. Abdomen: Soft, benign. Extremities: Have 1+ edema. No clubbing or cyanosis. IMPRESSION: Acute kidney injury. Creatinine unchanged today, but BUN continues to rise. He is in positive fluid balance. Significant hypoalbuminemia. We are giving albumin. No changes today. cc: Marco Dewitt MD
[2018-12-02] MEDS: MYCAMINE 100 MG in NS 100 ML IV SCH (13:17)
[2018-12-02] MEDS: PROTONIX IV SCH (15:15)
[2018-12-02] MEDS: SODIUM CHLORIDE 0.9% INJ SCH (15:15)
--- NOTE | 2018-12-02 19:42 | INFECTIOUS DISEASE PROGRESS NO ---
DATE: 12/02/2018 PRESENT ILLNESS: Mr. Duckworth is being treated for methicillin-resistant Staphylococcus aureus bacteremia and pneumonia, as well as a progressive leukocytosis. He also has atherosclerotic disease with lower extremity ischemia and multiple wounds. MEDICATIONS: Yesterday he was changed from vancomycin and cefepime to Zyvox 600 mg IV every 12 hours and micafungin 100 mg IV daily. PHYSICAL EXAMINATION: Vital Signs: Temperature is 97.9, pulse rate 79, respiratory rate 23 ,blood pressure 157/71, O2 saturation is 98% on 40% FiO2 on the mechanical ventilator. General: This is a critically ill-appearing, middle-aged gentleman. He is lying in the bed, currently sedated and intubated. HEENT: Atraumatic, normocephalic. Oral mucous membranes are pink and dry. Conjunctivae are pale. Neck: Supple. Trachea is midline. Respiratory: Lung sounds have some coarse rhonchi in the upper lobes, diminished in the bases. Cardiovascular : Heart rate and rhythm are regular with an atrial flutter on the monitor. Abdomen: Soft, flat , and bowel sounds are hypoactive. There is a rectal tube in place, draining liquid brown stool. Integumentary: Lower extremities are cyanotic and cold with multiple scabby abrasions and areas of suspected deep tissue injury. DIAGNOSTIC STUDIES: Today his white count is 37.01, hemoglobin 8.7, platelet count 377,000. Blood gas done this morning on 40% FiO2 showed a pH 7.42 pCO2 of 32, PO2 of 74, HCO3 of 22.4. Creatinine is 2, GFR 34, total bilirubin 0.54, AST 41, ALT 21, alkaline phosphatase 151. There are blood cultures pending. His urine culture has shown no growth on the preliminary report. C. difficile toxin is negative. Sputum and original blood cultures have both grown methicillin-resistant Staphylococcus aureus. Chest x-ray today shows mild interval improvement with infiltrates in the left base that are slightly less prominent than previously. ASSESSMENT AND PLAN: Mr. Duckworth is being treated for a methicillin-resistant Staphylococcus aureus bacteremia and pneumonia. There is also a progressive leukocytosis. Chest x- ray has improved slightly; however, there are multiple issues related to his circulation with ischemia noted to his bilateral lower extremities with wounds. The tentative plan is for his family to come and see him in the morning, after which time they will terminally extubate the patient. For now, we will continue the Zyvox and micafungin as ordered. These plans have been discussed with and recommended by Dr. De Souza. COMORBIDITIES: For Mr. Duckworth include presence of a pacemaker and Carroll rods in his spine, diabetes mellitus, Dumigod-Elxxe-Ncpmq disease and atrial fibrillation and flutter. Dictated by SHREYA Thompson for Sanjiv De Souza MD This chart was documented by, SHREYA Thompson and accurately reflects the services performed, treatment plan and medical decisions as attested by the providers signature Sanjiv De Souza MD. cc: Sanjiv De Souza MD [facility]rist[facility]
[2018-12-02] MEDS: THIAMINE 100 MG in NS 50 ML IV SCH (20:03)
--- NOTE | 2018-12-02 23:35 | PULMONOLOGY CONSULTATION ---
DATE: 12/02/2018 SUBJECTIVE: The patient remains poorly responsive. He has moderate increased work of breathing. OBJECTIVE: Vital Signs: Blood pressure 183/87, heart rate 70, respiratory rate 21-30, oxygen saturation 99%. HEENT: The patient will not track the examiner. Pupils are equal and reactive. Oropharynx appears dry. NECK: Supple. Chest: Reveals diffuse rhonchi bilaterally. Cardiac: S1 and S2. Regular rate. Abdomen: Soft with decreased bowel sounds. Extremities: Reveal diffuse severe peripheral vascular disease involving the feet with cyanosis, ulceration, and areas of necrosis. LABORATORY DATA: White blood count 37,000, hemoglobin 8.7, platelet count 377, 000. Sodium 141, potassium 4.9, chloride 107, bicarbonate 30, BUN 94, creatinine 2.0. Arterial blood gas, pH 7.42, pCO2 of 32, PO2 of 74. Chest x-ray reveals bilateral effusions with partial improvement left base. IMPRESSION: The patient is a 58-year-old with acute stroke, who has: 1. Acute hypoxemic respiratory failure. 2. Bilateral pleural effusions. 3. Acute renal failure. 4. Cardiomyopathy. 5. Severe peripheral vascular disease with areas of cyanosis and ischemia. 6. Progressive leukocytosis likely related to lower extremity disease. 7. Diabetes mellitus. 8. History of alcohol use. DISCUSSION: The patient clinically is not improving. He continues to have elevated minute ventilation with significant leukocytosis. It is unlikely he would improve without bilateral lower extremity amputations. His prognosis appears to be dismal. Family is discussing withdrawal of support. RECOMMENDATION: 1. Continue current ventilatory support. 2. Continue current antibiotic regimen per Infectious Disease. 3. Agree with ongoing end of life discussions. Withdrawal of care and comfort measures would be appropriate for this patient. Time spent in critical care management: 30+ minutes cc: Leonard Wing MD MTDD
[2018-12-03] MEDS: ZYVOX 600 MG/D5W 600 MG/300 ML IVPB IV SCH (00:30)
[2018-12-03] MEDS: DUONEB (A & A) INH SCH ×2 (03:34→07:48)
[2018-12-03] MEDS: DIPRIVAN 1% 1,000 MG/100 ML BOTTLE IV SCH (04:39)
[2018-12-03 05:15] LABS: ALLEN TEST YES; BE -3.8 mmoll (-3.0-3.0); BLOOD TYPE ARTERIAL; METHB 0.4 % (0.0-1.5); O2(CT) 11.5 mL/dL (15.0-23.0); O2HB 96.5 % (95.0-99.0); PCO2(98.6) 32 mmHg (35-45); PO2(98.6) 102 mmHg (60-100); SAMPLE BLOOD; SRATE 12 BPM; THB 8.3 g/dL (11.5-17.4); TVOL 600 mL; pH(98.6) 7.41 (7.35-7.45)
[2018-12-03 05:16] LABS: MODALITY VENTILATOR
[2018-12-03 05:54] LABS: BASO# 0.08 X1000 (0.0-0.2); BASO% 0.2 % (0.0-0.8); EOS% 0.9 % (0.0-10.0); HEMATOCRIT 27.2 % (42.0-52.0); HEMOGLOBIN 8.5 g/dL (14.0-18.0); IMM GRAN# 0.88 X1000 (0.0-0.04); IMM GRAN% 2.6 % (0.0-0.5); LYMPH# 2.33 X1000 (1.2-3.4); LYMPH% 6.9 % (20.5-51.1); MCH 32.4 PG (27-31); MCHC 31.3 g/dL (33-37); MCV 103.8 FL (81-99); MONO# 1.61 X1000 (0.11-0.59); MONO% 4.8 % (1.7-9.3); MPV 12.6 FL (7.4-10.4); NEUT# 28.53 X1000 (1.4-6.5); NEUT% 84.6 % (42.2-75.2); PLT 411 X1000 (130-400); RBC 2.62 XMIL (4.7-6.1); RDW 18.7 % (11.5-14.5); WBC 33.73 X1000 (4.8-10.8)
[2018-12-03 06:03] LABS: ALB/GLOB RATIO 0.7; ALBUMIN 2.4 g/dL (3.5-5.0); CALCIUM 8.5 mg/dL (8.8-10.2); POTASSIUM 4.8 mmol/L (3.5-5.1); TOTAL BILIRUBIN 0.59 mg/dL (0.20-1.00); TOTAL PROTEIN 5.9 g/dL (6.3-8.3)
[2018-12-03] MEDS: HUMALOG SUBQ SCH (06:09)
[2018-12-03 06:27] LABS: BANDS 2 % (0-1); LYMPHS 4 % (21-51); MONO 4 % (1-9); NRBC 1 % (0-0); SEGS 90 % (42-75)
--- NOTE | 2018-12-03 07:44 | Diag Imaging Result Doc PS360 ---
EXAM: CHEST-PORTABLE 12/03/2018 HISTORY: respiratory failure TECHNIQUE: AP portable at 0533 COMMENT: There is an endotracheal tube with its tip at the thoracic inlet. There is an NG tube the tip of which is not clearly visible. There is a right pleural effusion. There is hazy opacity in both lower lung lang worse on the right than the left. Compared to 12/02/2018, there may be slightly less opacification in the right midlung field. Otherwise there has been very little change. IMPRESSION: Pulmonary edema and/or pneumonia with right pleural effusion. Electronically signed by Jem Hogue 12/03/2018 7:42 AM
[2018-12-03] MEDS: ALBUMIN 25% IV SCH (08:50)
[2018-12-03] MEDS: HEPARIN SUBQ SCH (08:50)
[2018-12-03] MEDS: CELEXA PO SCH (08:51)
[2018-12-03] MEDS: ASPIRIN PR SCH (08:51)
[2018-12-03] MEDS: THERA M PLUS PO SCH (08:51)
[2018-12-03] MEDS: NORVASC PO SCH (08:51)
[2018-12-03] MEDS: LACTULOSE PO SCH (08:51)
[2018-12-03] MEDS: DULCOLAX PR SCH (08:52)
[2018-12-03] MEDS: MIRALAX PO SCH (08:52)
--- NOTE | 2018-12-03 09:33 | NEPHROLOGY PROGRESS NOTE ---
DATE: 12/03/2018 DATE SEEN: 12/03/2018. TIME SEEN: 0620. SUBJECTIVE: Mr. Duckworth is currently resting in bed. He is ventilator-dependent with sedation. OBJECTIVE: His most recent vital signs: Patient's last temperature 98.2 degrees, blood pressure 135/59, heart rate 69, respirations are 20. He is currently on 40% FiO2. His last recorded saturation is 100%. He has had 2908 in, 1350 out. He is in a 1 L positive fluid balance. LABORATORY DATA: Sodium is 139, potassium 4.8, chloride 105, CO2 20, BUN 101, creatinine 2, glucose 201, anion gap of 14, calcium 8.5. Albumin is 2.4. White count 33.73, hemoglobin 8.5, hematocrit 27.2 with a platelet count of 411,000. ABGs: pH 7.4, CO2 32, PO2 102, bicarb 22. The patient has a serum lactate of 1.8 on 40% FiO2. PHYSICAL EXAMINATION: General: This is a 58-year-old male, resting quietly in bed. He appears in no acute distress. Skin: Warm and dry. HEENT: Normocephalic, atraumatic. Conjunctiva is pink. He has DEVAN. Mucous membranes are dry. Oral ET tube is in place. Neck : Supple. Trachea midline. No JVD. Cardiovascular: Regular rate and rhythm. The patient has distant heart sounds. Lungs: Patient has a few scattered rhonchi. Ventilatory support. Abdomen: Soft. No tenderness present. Genitourinary: Villar catheter is in place. Adequate urine output documented. Extremities: Has trace pretibial edema, more edema to his hands. These are dependent. Neurological: As above. ASSESSMENT AND PLAN: 1. Acute kidney injury. Creatinine remains stable at 2 for the last 72 hours. The patient's BUN continues to elevate, now up to 101. He continues with adequate urine output of 2.4 L of urine, moderate per fecal of 900 mL. He remains on renal dosed antibiotics. 2. Electrolytes and acid-base balance. These are acceptable. 3. Significant hypoalbuminemia. The patient is currently receiving albumin x3 doses. 4. Leukocytosis. Again, patient has renal dosed antibiotics on board. Followed by Dr. De Souza with micaem Zyvox. I would like to thank you for allowing us to follow with this patient. Dictated by SHREYA Salazar for Marco Dewitt MD Face to face encounter, data reviewed, discussed with Saranya Collazo on 12/03/18. I agree with the above assessment and plan of care. cc: SHREYA Salazar MD [facility]
[2018-12-03] MEDS: DILAUDID IV PRN (10:23)
--- NOTE | 2018-12-03 10:56 | PROGRESS NOTE ---
DATE: 12/03/2018 SUBJECTIVE: The family has decided to terminate care. As such, we will proceed to extubate the patient and transfer him to the floor. PHYSICAL EXAMINATION: Vital Signs: Temperature 98.2 degrees, pulse is 70, respiratory rate is 20, blood pressure is 132/58, oxygen saturation is 100%. LABORATORY DATA: White count is 33.75, hematocrit is 27.2, with a platelet count of 411,000. ABG, 7.41/32/102/99%. Sodium is 139, potassium 4.8, chloride is 105, bicarb is 20, BUN is 101, creatinine is 2.0. ASSESSMENT AND PLAN: 1. Acute respiratory failure. 2. Pneumonia. 3. Bacteremia. 4. Acute kidney injury. 5. Acute cerebrovascular accident. 6. Diabetes mellitus. 7. Peripheral arterial disease. PLAN: Proceed to extubate the patient. Transfer to the floor and initiate comfort measures. cc: Luis Salazar MD MTDD
[2018-12-03] MEDS: ATIVAN IV PRN (11:21)
--- NOTE | 2018-12-03 14:34 | PULMONOLOGY PROGRESS NOTE ---
DATE: 12/03/2018 SUBJECTIVE: The patient remains unresponsive. OBJECTIVE: Vital Signs: Maximum temperature in the last 24 hours is 99.8 degrees. HEENT: Pupils are minimally responsive. Oropharynx appears dry. Neck: Supple. Chest: Chest reveals coarse rhonchi bilaterally. Cardiac: S1, S2. Abdomen: Soft, with no bowel sounds. Extremities: Reveal severe peripheral vascular disease with cyanosis, ulceration and ischemia. LABORATORY DATA: Sodium 139, potassium 4.8, chloride 105, bicarbonate 20, BUN 101, creatinine 2.0. Arterial blood gas: pH 7.41, pCO2 of 32, PO2 of 102. White blood count 33.7 thousand, hemoglobin 8.5, platelet count 411,000. Chest x-ray reveals right-sided effusion, bibasilar infiltrates. IMPRESSION: A 58-year-old with acute stroke and: 1. Altered mental status/coma. 2. Bilateral effusions. 3. Acute renal failure. 4. Cardiomyopathy. 5. Bilateral ischemia of both lower extremities. 6. Leukocytosis. 7. Diabetes mellitus. DISCUSSION: A critically ill patient with multiorgan dysfunction/failure. The patient is unlikely to survive this hospitalization. End of life discussions have been held earlier this morning. RECOMMENDATIONS: 1. Agree with withdrawal of support. 2. Continue comfort measures. 3. Anticipate within 24 to 48 hours of compassionate extubation. Critical Care Time: 30+ minutes cc: Leonard Wing MD [facility]
--- NOTE | 2018-12-03 14:35 | GASTROENTEROLOGY PROGRESS NOTE ---
DATE: 12/03/2018 SUBJECTIVE: The patient is resting in bed. He is intubated and sedated. I spoke to the patient's nurse. The patient's family has decided to withdraw care. He will be terminally extubated. His tube feeds have been withheld. OBJECTIVE: Vital Signs: Temperature of 99.8, pulse rate of 70, respiratory rate 22, blood pressure 116/70, saturating 100% on mechanical ventilator at 40% FiO2. General Appearance: Thinly built, lying in bed, intubated and sedated. HEENT: Positive pallor. No icterus. Positive ET tube. Neck: Supple. Abdomen: Soft, nondistended. Extremities: He has SCDs and TEDs. Neurological: He is sedated. He is on IV propofol. LABS: His hemoglobin and hematocrit are 8.5 and 27.2, white count of 33.7, platelet count of 411,000. His ABG is showing pH of 7.41, pCO2 of 32, PO2 of 102, and bicarb of 22. He is on a ventilator at 40% FiO2. Sodium 139, potassium 4.8, chloride of 105, bicarb 20, anion gap 14, BUN of 101, creatinine of 2, glucose of 201, calcium 8.5. Total bilirubin is 0.59, AST 39, ALT 19, alkaline phosphatase 155, total protein 5.9, albumin of 2.4. Blood cultures x2 negative at 48 hours from 12/01/2018. C. difficile negative toxin on 12/01/2018. IMPRESSION AND PLAN: 1. Acute respiratory failure after a cerebrovascular accident. He is on ventilatory support. 2. Leukocytosis secondary to bacteremia and pneumonia. He is on antibiotics but his leukocytosis is worsened. 3. Malnutrition. He was tube feeds. They have been withheld. 4. History of peripheral arterial disease. Aware. 5. Diabetes mellitus. Aware. 6. Acute kidney injury. 7. Disposition. The patient is being transitioned to comfort care. We will sign off at this time. I have discussed with the patient's nurse at bedside and all questions were answered. Please call us with any questions. cc: MD Luis Amin MD
[2018-12-03] MEDS: MORPHINE IV PRN (22:12)
[2018-12-04] MEDS: MORPHINE IV PRN ×4 (01:29→19:19)
[2018-12-04 06:46] LABS: BASO% 0.4 % (0.0-0.8); EOS# 0.48 X1000 (0.0-0.7); EOS% 1.7 % (0.0-10.0); HEMATOCRIT 28.9 % (42.0-52.0); HEMOGLOBIN 8.9 g/dL (14.0-18.0); IMM GRAN% 2.5 % (0.0-0.5); LYMPH# 1.99 X1000 (1.2-3.4); LYMPH% 7.2 % (20.5-51.1); MCH 32.6 PG (27-31); MCHC 30.8 g/dL (33-37); MCV 105.9 FL (81-99); MONO# 1.49 X1000 (0.11-0.59); MONO% 5.4 % (1.7-9.3); MPV 11.9 FL (7.4-10.4); NEUT# 22.84 X1000 (1.4-6.5); NEUT% 82.8 % (42.2-75.2); PLT 440 X1000 (130-400); RBC 2.73 XMIL (4.7-6.1); RDW 18.1 % (11.5-14.5)
[2018-12-04 07:21] LABS: ALB/GLOB RATIO 0.7; ALBUMIN 2.5 g/dL (3.5-5.0); CALCIUM 8.8 mg/dL (8.8-10.2); POTASSIUM 5.3 mmol/L (3.5-5.1); TOTAL BILIRUBIN 0.84 mg/dL (0.20-1.00); TOTAL PROTEIN 5.9 g/dL (6.3-8.3)
--- NOTE | 2018-12-04 14:36 | PROGRESS NOTE ---
DATE: 12/04/2018 SUBJECTIVE: The patient is resting in bed unresponsive. OBJECTIVE: Vital Signs: Temperature 98.8 degrees, pulse 79, respiratory rate 16, blood pressure 150/70, and oxygen saturation is 100%. HEENT: Atraumatic and normocephalic. Cardiovascular: S1, S2. Respiratory: No rales or rhonchi noted. Abdomen: Soft and nontender. No masses felt. Extremities: No evidence of edema. Central nervous system: The patient is unresponsive. ASSESSMENT: 1. Acute respiratory failure. 2. Pneumonia. 3. Bacteremia. 4. Acute kidney injury. 5. Acute cerebrovascular accident. 6. Diabetes mellitus. 7. Peripheral arterial disease. PLAN: Continue comfort care measures. cc: Luis Salazar MD
[2018-12-05] MEDS: MORPHINE IV PRN ×5 (01:05→22:48)
[2018-12-05] MEDS: ATIVAN IV PRN ×3 (01:37→17:59)
[2018-12-05 08:36] LABS: BASO# 0.27 X1000 (0.0-0.2); BASO% 0.8 % (0.0-0.8); EOS# 0.12 X1000 (0.0-0.7); EOS% 0.4 % (0.0-10.0); HEMATOCRIT 32.6 % (42.0-52.0); IMM GRAN# 1.13 X1000 (0.0-0.04); IMM GRAN% 3.5 % (0.0-0.5); LYMPH# 2.84 X1000 (1.2-3.4); LYMPH% 8.8 % (20.5-51.1); MCH 33.2 PG (27-31); MCHC 30.7 g/dL (33-37); MCV 108.3 FL (81-99); MONO# 2.28 X1000 (0.11-0.59); MPV 11.6 FL (7.4-10.4); NEUT# 25.71 X1000 (1.4-6.5); NEUT% 79.5 % (42.2-75.2); PLT 479 X1000 (130-400); RBC 3.01 XMIL (4.7-6.1); RDW 18.6 % (11.5-14.5); WBC 32.35 X1000 (4.8-10.8)
[2018-12-05 09:35] LABS: ALB/GLOB RATIO 0.7; ALBUMIN 2.7 g/dL (3.5-5.0); CALCIUM 9.5 mg/dL (8.8-10.2); CREATININE 2.1 mg/dL (0.7-1.2); POTASSIUM 5.9 mmol/L (3.5-5.1); TOTAL BILIRUBIN 0.95 mg/dL (0.20-1.00); TOTAL PROTEIN 6.5 g/dL (6.3-8.3)
[2018-12-05 10:31] LABS: BANDS 6 % (0-1); LYMPHS 12 % (21-51); SEGS 82 % (42-75)
[2018-12-05 10:32] LABS: ANISOCYTOSIS 1+; LARGE PLATELETS 1+
--- NOTE | 2018-12-05 13:49 | PROGRESS NOTE ---
DATE: 12/05/2018 SUBJECTIVE: This morning Mr. Duckworth continues to be on comfort care measures only. There was no family member at the bedside at the time of the encounter. He continues to be unresponsive. CURRENT VITALS: Blood pressure is 168/57, respiratory rate is about 8, pulse is 70, temperature is 99.6 degrees. PHYSICAL EXAMINATION: General: Mr. Duckworth is a 58-year-old male. He is in bed. He does not seem to be in any distress. Mucosa is pink and moist. Anicteric. Acyanotic. Neck: Neck is supple. Chest air entry is bilaterally reduced. There are some diffuse crackles posteriorly. Cardiovascular regular rate and rhythm. Abdomen is soft. Bowel sounds present. Extremities: There is dark discoloration of the digits consistent with hypoperfusion. Pulses are almost imperceptible. BLENDER CONVEYOR OPERATOR: Mr. Duckworth is unresponsive even to extreme painful stimulation. Pupils are pinpoint and very sluggish to light. LABORATORY DATA: Has also been reviewed. ASSESSMENT: 1. Sepsis with MRSA bacteremia. 2. Acute hypoxemic respiratory failure. 3. Severe peripheral vascular disease. 4. Chronic atrial fibrillation. 5. Unresponsiveness. 6. History of diabetes mellitus. 7. Do Not Resuscitate level 1 and INFORMATION SYSTEMS SECURITY ANALYST status. 8. We will continue with the current INFORMATION SYSTEMS SECURITY ANALYST status and care. cc: Roscoe Melvin MD
[2018-12-06] MEDS: MORPHINE IV PRN ×5 (06:43→23:53)
[2018-12-06] MEDS: ATIVAN IV PRN ×2 (09:22→14:55)
--- NOTE | 2018-12-06 12:56 | PROGRESS NOTE ---
DATE: 12/06/2018 SUBJECTIVE: Mr. Duckworth continues to be unresponsive, under comfort care measures. OBJECTIVE: Vital Signs: His current vitals are blood pressure 168/71, pulse is 69, respirations are 20, his temperature is 102.6 degrees. General Examination: Mr. Duckworth is a 58-year-old, gentleman. He is in bed. He is on a face mask. HEENT: Mucosa is pink and moist. Chest: Air entry is bilaterally reduced. There are diffuse crackles posteriorly. The patient has a pacemaker On the left anterior chest wall. Cardiovascular: Regular rate and rhythm. No murmurs. Abdomen: Soft. Extremities: Bilateral discoloration, consistent with hypoperfusion. TURBINE ATTENDANT: Patient is unresponsive. Laboratory Data: No lab work for today. ASSESSMENT: 1. Sepsis with methicillin-resistant Staphylococcus aureus bacteremia. 2. Acute hypoxemic respiratory failure. 3. Severe peripheral vascular disease. 4. Chronic atrial fibrillation. 5. Diabetes mellitus. 6. Comatose. 7. The patient continues to be on comfort measures only and Do Not Resuscitate status. 8. Actively dying. GENERAL PLAN: We will continue with the current TRAINING AND DEVELOPMENT MANAGER status and measures. We will get the [place] technicians to come and turn off the patient's pacemaker. cc: Roscoe Melvin MD MTDD
[2018-12-07] MEDS: MORPHINE IV PRN ×4 (02:22→17:09)
[2018-12-07] MEDS: ATIVAN IV PRN (06:27)
--- NOTE | 2018-12-07 15:29 | PROGRESS NOTE ---
DATE: 12/07/2018 Today Mr. Duckworth continues to be fairly the same, more unresponsive and he continues to be under comfort care measures. SUBJECTIVE: Vitals: Blood pressure is 132/54, pulse is 60, respiration is 16, temperature is 99.3 degrees, patient is saturating 97% on 2 L. General: Mr. Duckworth 58-year- old gentleman he is in bed. He is unresponsive. There is some crackles in his lungs. REDEVELOPMENT SPECIALIST: Remarkably he is unresponsive. LAB: There is no lab work. ASSESSMENT: 1. Sepsis with methicillin-resistant Staphylococcus aureus bacteremia. 2. Acute hypoxemic respiratory failure. 3. Severe peripheral vascular disease. 4. Chronic atrial fibrillation. 5. Diabetes mellitus. 6. Comatose. 7. Do not resuscitate/comfort measures only. 8. Actively dying. We are going to continue with the current comfort care measures. cc: Roscoe Melvin MD MTDD
[2018-12-08] MEDS: MORPHINE IV PRN ×3 (09:11→18:09)
--- NOTE | 2018-12-08 14:21 | PROGRESS NOTE ---
DATE: 12/08/2018 SUBJECTIVE: This morning, Mr. Duckworth continues to be unresponsive. No family member at the bedside. OBJECTIVE: Vital signs: Blood pressure is 132/57, pulse of 70, respirations 15, temperature 97.7 degrees. Patient was saturating 97% on 4 L. General exam: Mr. Duckworth is a 58-year-old male. He is in bed. He is on nasal cannula. He is unresponsive. Does have an anterior neck mass. Chest: Air entry is bilaterally reduced. There are some crackles bilaterally. BUYING INTERN: He remains unresponsive. LAB WORK: There is no lab work for this morning. ASSESSMENT: 1. Sepsis secondary to methicillin-resistant Staphylococcus aureus bacteremia. 2. Acute hypoxemic respiratory failure. 3. Severe peripheral vascular disease. 4. Chronic atrial fibrillation. 5. Diabetes mellitus. 6. Comatose. 7. Do Not Resuscitate level 1 and comfort care measures only. 8. Actively dying. cc: Roscoe Melvin MD
[2018-12-09] MEDS: MORPHINE IV PRN ×3 (00:03→06:14)
--- NOTE | 2018-12-09 11:47 | PROGRESS NOTE ---
DATE: 12/09/2018 SUBJECTIVE: Mr. Duckworth continues to be more comatose. There was no family member at the bedside at the time of the encounter. OBJECTIVE: His current vitals show blood pressure is 97/44, pulse is 68, respirations 14, and temperature 99.1 degrees. The patient was on nasal cannula at 4 L. Physical exam is unchanged. He remains unresponsive with dark discoloration of the lower extremities. Chest has some crackles posteriorly. LABORATORY: No labs for today. ASSESSMENT: 1. Sepsis secondary to MRSA bacteremia. 2. Acute hypoxemic respiratory failure. 3. Severe peripheral vascular disease. 4. Chronic atrial fibrillation. 5. Diabetes mellitus. 6. Unresponsiveness. 7. DNR level 1. 8. Actively dying. PLAN: We are going to continue with the DNR as well as BUSINESS SUPERVISOR measures pending to discuss possibility of discharge home with hospice with the family members. cc: Roscoe Melvin MD
[2018-12-09 13:32] VITALS: BP 79/33
--- NOTE | 2018-12-10 06:40 | DISCHARGE SUMMARY ---
ADMISSION DATE: 11/09/2018 DISCHARGE DATE: 12/09/2018 TIME OF : 1421 hours. DIAGNOSES AT TIME OF ADMISSION: 1. Supratherapeutic INR. 2. Anemia secondary to blood loss. 3. Leukocytosis. 4. Acute kidney injury. 5. Elevated bilirubin. DIAGNOSES AT TIME OF : 1. Sepsis with methicillin-resistant Staphylococcus aureus bacteremia. 2. Acute hypoxemic respiratory failure. 3. Congestive heart failure with ejection fraction of 30%. 4. Chronic atrial fibrillation. 5. Diabetes mellitus type 2. 6. Supratherapeutic INR on presentation due to Coumadin therapy. 7. Severe iliac artery atherosclerosis. 8. Rectal fecal impaction on presentation. PRESENTING COMPLAINT: Right arm swelling, turning blue. HISTORY OF PRESENTING COMPLAINT: Mr. Duckworth is a 58-year-old male with a history of atrial fibrillation, pacemaker, hypertension, diabetes, who is on Coumadin therapy at home, presented to the emergency department because of right arm swelling which was turning blue. The patient was initially seen at [facility]. During his stay in the in the [facility], he continues to decline, so he was transferred to [facility] for higher level of care. HOSPITAL COURSE: Couple days after being admitted, Mr. Duckworth developed acute respiratory failure. He was intubated and was seen by Pulmonary Medicine. Mr. Duckworth also developed multiple infections, including MRSA bacteremia, so he was started on broad-spectrum antibiotics covering MRSA. Infectious Disease was consulted. Subsequent blood culture revealed clean blood. Mr. Duckworth mentation continued to be remarkably poor with altered mentation. Neurology saw him multiple times. There was no focalization. Unfortunately, Mr. Duckworth did not show any improvement after almost 20 days of hospitalization. Family members decided to ultimately make him DNR and transition to comfort care. Unfortunately, this afternoon Mr. Duckworth succumbed to his ailment and was pronounced by 2 attending nurses. cc: Roscoe Melvin MD
== END 2018-12-09 14:21 | disposition expired | DRG 947 ==
LOC: P.ED 11:28 → P.MEDSURG 18:19 → SUATTDRO 18:19 → 3S 11-20 20:28 → ICU 11-27 12:57 → 4N 12-03 13:59 → 3N 12-06 16:53
PROVIDERS: ATTEND Internal Medicine
CPT/HCPCS: 31500; 36415; 36430; 70450; 70470; 70496; 70498; 71010; 71020; 71045; 71046; 71250; 73620; 74000; 74018; 74176; 75635; 76770; 80048; 80053; 80069; 80202; 80307; 80320; 81001; 82055; 82140; 82270; 82550; 82570; 82805; 82947; 82948; 83036; 83605; 83735; 83880; 83935; 84100; 84134; 84156; 84300; 84478; 85025; 85027; 85610; 85730; 86850; 86900; 86901; 86920; 87040; 87070; 87077; 87088; 87186; 87205; 87324; 87449; 92610; 93005; 93010; 93306; 93312; 93923; 93971; 94002; 94003; 94640; 94760; 94761; 94762; 94799; 97110; 97163; 97530; 99285; 99291; A9270; C9113; G0480; G6040; J0330; J0692; J0878; J1170; J1644; J1815; J1940; J2020; J2060; J2248; J2270; J3370; J3411; J3430; J3475; J3480; J7030; J7040; J7050; J7070; P9016; P9047; Q9967; S0164; XXXXX